=== PATIENT | female | born 1945 | race Caucasian/White ===

== ENCOUNTER → 2017-11-09 11:49 | Outpatient (CLI) | payer OTHER, SELFPAY ==
--- NOTE | 2017-11-09 | DI.MG.S_ITS ---
BILATERAL DIGITAL SCREENING MAMMOGRAM 3D/2D WITH CAD: 11/09/2017 CLINICAL: Routine screening. Comparison is made to exams dated: 10/25/2016 mammogram and 06/25/2013 mammogram - [facility]. The tissue of both breasts is heterogeneously dense. This may lower the sensitivity of mammography. Current study was also evaluated with a Computer Aided Detection (CAD) system. No significant masses, calcifications, or other findings are seen in either breast. There has been no significant interval change. IMPRESSION: NEGATIVE There is no mammographic evidence of malignancy. A 1 year screening mammogram is recommended. This exam was interpreted at Station ID: [id number]. NOTE: For mammograms, a report in lay terms will be sent to the patient. Approximately 15% of breast malignancies will not be visualized mammographically. In the management of a palpable breast mass, a negative mammogram must not discourage biopsy of a clinically suspicious lesion. Electronically Signed By: Gagan jiang/kylee:11/10/2017 03:31:44 letter sent: Normal Exam ACR BI-RADS Category 1: Negative [id number]
== END ==
PROVIDERS: Family Provider Family Medicine; PCP Family Medicine; Visit Provider Family Medicine
DX: Z12.31 Encounter for screening mammogram for malignant neoplasm of breast (principal)
CPT/HCPCS: 77063; 77067

== ENCOUNTER → 2017-11-15 09:46 | Outpatient (CLI) | payer OTHER, SELFPAY ==
--- NOTE | 2017-11-15 | DI.CT.S_ITS ---
PROCEDURE: CT CHEST WO CON INDICATIONS: PULMONARY NODULE TECHNIQUE: Noncontrast 2.0-2.5 mm thick sections acquired from the pulmonary apices to the posterior costophrenic angles. 7 mm thick coronal and sagittal MIP reformats were then acquired. A low radiation dose technique was utilized. COMPARISON: [facility], CR, CHEST 1 VIEW, 03/29/2016, 10:28. [facility], CT, ABDOMEN/PELVIS WITH CONTRAST, 11/27/2016, 13:50. FINDINGS: Image quality: Diagnostic, given the low radiation dose technique. Lungs and pleura: There is a 1 cm in diameter nodule in the posterior right upper lobe (series 2, image 54) with multiple 2-3 mm in diameter adjacent nodules. There is a 3 mm nodule in the right upper lobe (series 2, image 50 post menses. There is a 7 mm nodule in the right upper lobe (series 2, image 72). There is a 4 mm nodule in the left lower lobe (series 2, image 88). There is a 2 mm nodule in the right upper lobe (series 2, image 94). There is a 3 mm nodule in the right lower lobe (series 2, image 102. There is a 3 mm nodule in the left lower lobe (series 2, image 103. There is a 5 mm nodule in the right middle lobe (series 2, image 111) which is stable compared to prior study obtained 11/27/2016 there is a 5 mm nodule in the right lower lobe (series 2, image 118 which is new compared to prior CT obtained 11/27/2016. There is a 7 mm nodule in the right lower lobe adjacent to the diaphragm (series 2, image 121) which is slightly increased in size compared to 11/27/16. There is a 5 mm nodule in the left lower lobe (series 2, image 121) sees which is stable compared to 11/27/16. There is a 4 mm nodule in the left lower lobe (series 2, image 132) which is stable compared to 11/27/16. Mediastinum: Heart size is normal. Atherosclerotic calcifications are noted in the aorta, and the great vessels. No pericardial effusion. No mediastinal adenopathy by size criteria. Thoracic aorta and central pulmonary arteries are normal in size. Esophagus is normal in caliber. Small hiatal hernia noted. Bones and chest wall: Surgical clips noted in the right axilla. No suspicious bony lesions. No vertebral body compression fractures. Spine degenerative disc disease and facet arthropathy. No axillary or supraclavicular adenopathy by size criteria. Abdomen: Visualized upper abdomen solid organs and bowel loops appear normal in the absence of contrast. IMPRESSION: 1. Multiple bilateral lung nodules. Largest nodules in the right upper lobe and measures 1 cm in diameter. Recommend followup CT scan in 3 months or PET/CT scan base and criteria outlined below. 2. Small hiatal hernia. Fleischner Society criteria for SOLID lung nodule followup. Nodule size (mm)Low-risk patientHigh-risk patient<6 (single or multiple)No routine followup.Optional CT at 12 months. 6-8 (single or multiple)CT at 6-12 months, then optional CT at 18-24 mo.CT at 6-12 months, then CT at 18-24 months. >8 (single)CT at 3 months, PET-CT, or biopsy. Same as for low-risk pts. >8 (multiple)CT at 3-6 months, then optional CT at 18-24 mo.CT at 3-6 months, then CT at 18-24 months. Recommendations do not apply to lung cancer screening, patients with immunosuppression, or patients with known primary cancer. Dictated by: Summer Clements MD, PhD on 11/15/2017 at 16:42 Approved by: Summer Clements MD, PhD on 11/15/2017 at 16:54
== END ==
PROVIDERS: Family Provider Family Medicine; PCP Family Medicine; Visit Provider Family Medicine
DX: R91.8 Other nonspecific abnormal finding of lung field (principal); K44.9 Diaphragmatic hernia without obstruction or gangrene
CPT/HCPCS: 71250

== ENCOUNTER → 2018-01-26 10:15 | Outpatient (CLI) | payer OTHER, SELFPAY ==
--- NOTE | 2018-01-26 | DI.CT.S_ITS ---
PROCEDURE: CT CHEST WO CON INDICATIONS: FOLLOW UP ON LUNG NODULE TECHNIQUE: Noncontrast 2.0-2.5 mm thick sections acquired from the pulmonary apices to the posterior costophrenic angles. 7 mm thick coronal and sagittal MIP reformats were then acquired. A low radiation dose technique was utilized. COMPARISON: [facility], CT, CT CHEST WO CON, 11/15/2017, 9:44. FINDINGS: Image quality: Diagnostic, given the low radiation dose technique. Lungs and pleura: Biapical scarring is seen. Previously described 1 cm nodule in posterior right upper lobe is less well-defined on the current study it measures approximately 7 mm in size. Adjacent 2-3 mm nodular densities are again seen and unchanged series 3 image 48. The 3 mm right upper lobe nodule anteriorly is grossly unchanged series 3 image 43. 7 mm nodule in right upper lobe is unchanged series 3 image 65. 4 mm left lower lobe nodule now measures 3 mm in size series 3 image 79. 2 mm right upper lobe nodule is again seen and unchanged series 3 image 81. Subtle 2 mm right upper lobe nodule is also seen and unchanged series 3 image 78. 3 mm right lower lobe nodule with remains unchanged series 3 image 92. 3 mm left lower lobe nodule is also unchanged series 3 image 96. 5 mm right middle lobe nodule remains stable in size and appearance series 3 image 103. 5 mm right lower lobe nodule is also unchanged series 3 image 109. 7 mm right lower lobe nodule adjacent to the diaphragm is also unchanged series 3 image 111. 5 mm left lower lobe nodule is unchanged series 3 image 114. 4 mm nodule in left lower lobe is unchanged. Increased scarring/atelectasis adjacent to this nodule is seen in series 3 image 124. No gross new pulmonary nodule or mass is identified. No pleural effusion or pneumothorax. Central and peripheral airways are patent and are normal in caliber. Mediastinum: Heart size is normal. No pericardial effusion. No mediastinal adenopathy by size criteria. Thoracic aorta and central pulmonary arteries are normal in size. Esophagus is normal in caliber. Small hiatal hernia is again seen. Bones and chest wall: No suspicious bony lesions. No vertebral body compression fractures. No axillary or supraclavicular adenopathy by size criteria. Thyroid gland is within normal limits. Abdomen: Visualized upper abdomen solid organs and bowel loops appear normal in the absence of contrast. IMPRESSION: 1. Essentially stable bilateral subcentimeter pulmonary nodules. The lung centimeter nodule in right upper lobe now measures 7 mm in size and is less well-defined. No new pulmonary nodule or masses seen. There is on the recommendation, additional followup in 12 months is recommended. 2. Small hernia unchanged from prior study. No mediastinal or hilar adenopathy. Fleischner Society criteria for SOLID lung nodule followup. Nodule size (mm)Low-risk patientHigh-risk patient<6 (single or multiple)No routine followup.Optional CT at 12 months. 6-8 (single or multiple)CT at 6-12 months, then optional CT at 18-24 mo.CT at 6-12 months, then CT at 18-24 months. >8 (single)CT at 3 months, PET-CT, or biopsy. Same as for low-risk pts. >8 (multiple)CT at 3-6 months, then optional CT at 18-24 mo.CT at 3-6 months, then CT at 18-24 months. Fleischner Society criteria for SUB-SOLID lung nodule followup. Solitary pure ground-glass nodules<6 mm (ground glass or part solid)No followup needed. 6 mm or larger (ground glass)CT at 6-12 months to confirm persistence, then CT every 2 years until 5 years.6 mm or larger (part solid)CT at 3-6 months to confirm persistence, then annual CT until 5 years if unchanged and solid component remains <6 mm. Multiple sub-solid nodules<6 mmCT at 3-6 months, then CT consider at 2 & 4 years for high risk patients. [address] at 3-6 months. Subsequent management based on most suspicious lesions. Recommendations do not apply to lung cancer screening, patients with immunosuppression, or patients with known primary cancer. Dictated by: Adan Naik M.D. on 01/26/2018 at 13:00 Approved by: Adan Naik M.D. on 01/26/2018 at 13:13
== END ==
PROVIDERS: Family Provider Family Medicine; PCP Family Medicine; Visit Provider Family Medicine
DX: R91.8 Other nonspecific abnormal finding of lung field (principal); K44.9 Diaphragmatic hernia without obstruction or gangrene
CPT/HCPCS: 71250

== ENCOUNTER → 2018-02-01 13:32 | Outpatient (CLI) | payer OTHER, SELFPAY | PROVIDERS: Family Provider Family Medicine; PCP Family Medicine; Visit Provider Family Medicine | DX: M85.88 Other specified disorders of bone density and structure, other site (principal); Z78.0 Asymptomatic menopausal state; Z82.62 Family history of osteoporosis | CPT/HCPCS: 77080 ==

== ENCOUNTER → 2018-11-12 13:31 | Outpatient (CLI) | payer OTHER, SELFPAY ==
--- NOTE | 2018-11-12 | DI.MG.S_ITS ---
BILATERAL DIGITAL SCREENING MAMMOGRAM 3D/2D WITH CAD: 11/12/2018 CLINICAL: Routine screening. Comparison is made to exams dated: 11/09/2017 mammogram, 10/25/2016 mammogram, and 06/25/2013 mammogram - [facility]. The tissue of both breasts is heterogeneously dense. This may lower the sensitivity of mammography. Current study was also evaluated with a Computer Aided Detection (CAD) system. No significant masses, calcifications, or other findings are seen in either breast. There has been no significant interval change. IMPRESSION: NEGATIVE There is no mammographic evidence of malignancy. A 1 year screening mammogram is recommended. This exam was interpreted at Station ID: [id number]. NOTE: For mammograms, a report in lay terms will be sent to the patient. Approximately 15% of breast malignancies will not be visualized mammographically. In the management of a palpable breast mass, a negative mammogram must not discourage biopsy of a clinically suspicious lesion. Electronically Signed By: Jorge ibarra/kylee:11/13/2018 08:15:10 letter sent: Normal Exam ACR BI-RADS Category 1: Negative 3341F
== END ==
PROVIDERS: PCP Student in an Organized Health Care Education/Training Program; Visit Provider Student in an Organized Health Care Education/Training Program
DX: Z12.31 Encounter for screening mammogram for malignant neoplasm of breast (principal)
CPT/HCPCS: 77063; 77067

== ENCOUNTER → 2019-02-04 09:41 | Outpatient (CLI) | payer OTHER, SELFPAY ==
--- NOTE | 2019-02-04 | DI.CT.S_ITS ---
PROCEDURE: CT CHEST WO CON INDICATIONS: Solitary pulmonary nodule TECHNIQUE: Noncontrast 2.0-2.5 mm thick sections acquired from the pulmonary apices to the posterior costophrenic angles. 7 mm thick axial MIP and 5 mm coronal and sagittal reformats were then acquired. A low radiation dose technique was utilized. COMPARISON: [facility], CT, HEAD AND NECK ANGIO, 03/29/2016, 11:14. [facility], CT, CT CHEST WO CON, 11/15/2017, 9:44. [facility], CT, CT CHEST WO CON, 01/26/2018, 10:18. FINDINGS: Image quality: Diagnostic, given the low radiation dose technique. Lungs and pleura: Upper lobe centrilobular emphysema. No acute consolidation. No pneumothorax or pleural effusion. Scattered atelectasis and/or scarring. Redemonstration of multiple bilateral pulmonary nodules, all of which are subcentimeter in size. Postie nodule present within the right lung base on image 240 series 3 is unchanged. Additional merchandiser retail representative 2 mm nodule seen in the left lung base measuring 4 mm image 245 series 3 is unchanged. However, there is questionable slight increase in size of right upper lobe nodule measuring 7 mm, previously 6 mm the prior study however this appearance could be due to slice registration artifact. Posterior right upper lobe ill-defined nodule measuring 6-7 mm grossly unchanged although continued surveillance is recommended in the absence of any more remote prior studies since 11/15/17 Mediastinum: Heart size is normal. No pericardial effusion. No mediastinal adenopathy by size criteria. Thoracic aorta and central pulmonary arteries are normal in size. Esophagus is normal in caliber. Small hiatal hernia. Bones and chest wall: No suspicious bony lesions. No vertebral body compression fractures. No axillary or supraclavicular adenopathy by size criteria. Thyroid gland unremarkable. Abdomen: Visualized upper abdomen solid organs and bowel loops appear normal in the absence of contrast. IMPRESSION: Overall, redemonstration of scattered bilateral subcentimeter pulmonary nodules which are largely unchanged although there is questionable/minimal enlargement of right upper lobe nodule discussed above (however this appearance could be due to slice registration artifact given the small size). Nonetheless recommended continued surveillance with one year interval CT chest followup. Dictated by: Tre Kelley M.D. on 02/04/2019 at 13:12 Approved by: Tre Kelley M.D. on 02/04/2019 at 13:31
== END ==
PROVIDERS: PCP Student in an Organized Health Care Education/Training Program; Visit Provider Student in an Organized Health Care Education/Training Program
DX: R91.8 Other nonspecific abnormal finding of lung field (principal); J43.2 Centrilobular emphysema
CPT/HCPCS: 71250

== ENCOUNTER → 2019-10-17 12:52 | Outpatient (CLI) | payer OTHER, SELFPAY ==
--- NOTE | 2019-10-17 | DI.CT.S_ITS ---
PROCEDURE: CT ABDOMEN PELVIS W CON INDICATIONS: LOWER ABD PAIN TECHNIQUE: After the administration of oral and intravenous contrast, 5 mm thick sections acquired from the diaphragms to the symphysis. 5 mm thick coronal and sagittal reformats were performed. For radiation dose reduction, the following was used: automated exposure control, adjustment of mA and/or kV according to patient size. COMPARISON: [facility], CT, ABDOMEN/PELVIS WITH CONTRAST, 11/27/2016, 13:50. FINDINGS: Image quality: Excellent. ABDOMEN: Lung bases: Lung bases are clear. Heart size is normal. Small hiatal hernia. Hepatic steatosis. Gallbladder surgically absent. . Biliary system is non-dilated. Pancreas enhances normally. Spleen is normal in size and enhancement. No adrenal nodules. Subcentimeter renal foci, statistically cysts, although technically too small to characterize accurately and therefore nonspecific. No hydronephrosis. Punctate right renal calculus image 40/4. No specific transition point to suggest bowel obstruction. There are scattered air-fluid levels which are nonspecific. No free fluid or air. Appendix is not clearly identified however no suspicious pericecal inflammatory changes are seen. Colonic diverticulosis is seen without evidence of acute complication. Nodes and vessels: No retroperitoneal or mesenteric adenopathy. Aorta and inferior vena cava are normal in caliber. Miscellaneous: No ventral hernias. PELVIS: Genitourinary: Bladder wall thickness is normal. Miscellaneous: No inguinal hernias or adenopathy. Bones: No vertebral body compression fracture. Spondylytic changes and facet arthropathy. Chronic left superior ramus callus formation. IMPRESSION: Overall, no acute abnormality identified. Colonic diverticulosis however no or specific evidence of acute diverticulitis. Appendix is not clearly identified however no suspicious pericecal inflammatory changes are seen. Hepatic steatosis Punctate nonobstructive right renal calculus Dictated by: Tre Kelley M.D. on 10/17/2019 at 14:21 Approved by: Tre Kelley M.D. on 10/17/2019 at 14:26
== END ==
PROVIDERS: PCP Student in an Organized Health Care Education/Training Program; Referring Provider Student in an Organized Health Care Education/Training Program; Visit Provider Student in an Organized Health Care Education/Training Program
DX: R10.30 Lower abdominal pain, unspecified (principal); K57.90 Diverticulosis of intestine, part unspecified, without perforation or abscess without bleeding; K76.0 Fatty (change of) liver, not elsewhere classified; N20.0 Calculus of kidney; Z90.49 Acquired absence of other specified parts of digestive tract
CPT/HCPCS: 74177; Q9967

== ENCOUNTER 2019-12-31 17:33 | Emergency (ER) | payer OTHER, SELFPAY ==
[2019-12-31 17:45] VITALS: BP 156/79; PULSE 89; RESP 12; TEMP 36.4; O2SAT 97; BMI 27.3
--- NOTE | 2019-12-31 18:49 | ED_ITS ---
HPI - Ear Problem <CYNDEE Elizondo - Last Filed: 12/31/19 20:29> General Chief complaint: Ear Stated complaint: right ear, earring stick in ear Time Seen by Provider: 12/31/19 18:06 Source: patient Mode of arrival: Ambulatory Limitations: no limitations History of Present Illness HPI Narrative: This is a pleasant 74 year female, nonsmoker, who has non contributory medical history presents to ED with chief complain of backing of earring stuck in left posterior earlobe from wearing hearing on during sleep. During triage this has been removed by triage nurse and the patient reports discomfort has been resolved at this time. Related Data Home Medications Medication Instructions Recorded Confirmed CA PANTOTHENATE/FOLIC ACID/VIT 1 tab PO QDAY #0 04/21/12 10/24/18 (MULTIVITAMIN) CHOLECALCIFEROL (VITAMIN D3) 10,000 units PO #0 cap 12/08/12 10/24/18 (VITAMIN D) Previous Rx's Medication Instructions Recorded meclizine 25 mg PO TIDP PRN #20 tab 03/30/16 metronidazole 500 mg PO TID #21 tab 11/27/16 Allergies Allergy/AdvReac Type Severity Reaction Status Date / Time erythromycin base Allergy Unknown RASH Verified 12/31/19 17:49 [ERYTHROMYCIN BASE] Review of Systems <CYNDEE Elizondo - Last Filed: 12/31/19 20:29> Review of Systems Narrative: General: Denies fever, chills, fatigue, malaise, sweats. HEENT: Denies sinus pain, (+) resolved ear lobe discomfort, ear pain, sore throat, difficulty swallowing, dizziness. Respiratory: Denies dyspnea, cough, wheezing, hemoptysis, sputum. Cardiovascular: Denies chest pain, palpitations, orthopnea, edema. Musculoskeletal: Denies weakness, joint pain or bony pain. Skin: See HPI Patient History <CYNDEE Elizondo - Last Filed: 12/31/19 20:29> Social History Smoking Status: Never smoker Smoking Status: Never smoker Substance Use Type: does not use Exam <CYNDEE Elizondo - Last Filed: 12/31/19 20:29> Narrative Exam Narrative: General appearance: well developed, well nourished, in no acute distress. Head: normocephalic, atraumatic, no scalp lesions, non-tender. ENT: Right earlobe with very mild edema. No obvious erythema, warmth or tenderness to palpate. Hearing grossly intact. Airway patent. Neck/Thyroid: neck supple, full range of motion, no visible masses or meningeal signs. No JVD, non-tender without lymphadenopathy. Skin: no suspicious rashes, lesions over visible areas. Warm and dry and appropriate color for ethnicity. Heart: no clubbing, no cyanosis, no edema. Lungs: Breathing even and unlabored. No stridor. No accessory muscles used. Able to speak in full sentences. Chest: normal shape and expansion. Abdomen: non-obese, non-distended. Neurologic: alert and oriented. 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 Psych: good eye contact, normal affect. Initial Vital Signs Initial Vital Signs: Vital Signs Temperature 97.6 F 12/31/19 17:45 Pulse Rate 89 12/31/19 17:45 Respiratory Rate 12 12/31/19 17:45 Blood Pressure 156/79 H 12/31/19 17:45 Pulse Oximetry 97 12/31/19 17:45 <Ken Conley MD - Last Filed: 01/01/20 04:02> Initial Vital Signs Initial Vital Signs: Vital Signs Temperature 97.6 F 12/31/19 17:45 Pulse Rate 89 12/31/19 17:45 Respiratory Rate 12 12/31/19 17:45 Blood Pressure 156/79 H 12/31/19 17:45 Pulse Oximetry 97 12/31/19 17:45 Scores <CYNDEE Elizondo - Last Filed: 12/31/19 20:29> GCS Thony coma scale eye opening: Spontaneous Thony coma scale verbal response: Orientated Thony coma scale motor response: Obey commands Thony coma scale total score: 15 Course <CYNDEE Elizondo - Last Filed: 12/31/19 20:29> Vital Signs Vital signs: Vital Signs - 8 hr 12/31/19 17:45 Temperature 97.6 F Pulse Rate 89 Respiratory Rate 12 Blood Pressure 156/79 H Pulse Oximetry 97 <Ken Conley MD - Last Filed: 01/01/20 04:02> Vital Signs Vital signs: Vital Signs - 8 hr 12/31/19 17:45 Temperature 97.6 F Pulse Rate 89 Respiratory Rate 12 Blood Pressure 156/79 H Pulse Oximetry 97 Medical Decision Making <CYNDEE Elizondo - Last Filed: 12/31/19 20:29> Differential Diagnosis Differential Diagnosis: Foreign body removal from ear lobe MDM Narrative Medical decision making narrative: Patient reports your lobe pain resolved after earring backing was removed during triage. Patient advised to monitor for signs and symptoms for infection and advised to clean well with alcohol and apply thin layer of antibiotic ointment and affected site. She verbalized understanding in agreement with the treatment plan. Discharge Plan Departure Patient Disposition: Home Clinical Impression: Foreign body in ear lobe Qualifiers: Encounter type: initial encounter Laterality: right Qualified Code(s): S00.451A - Superficial foreign body of right ear, initial encounter Discharge Date/Time: 12/31/19 18:25 Instructions: DI for Removal of Foreign Body From Skin Activity Restrictions/Additional Instructions: You have been diagnosed with [removal of backing of earing from right ear. No signs of infection.]. What to do: *Take your medications as directed. You can clean your ear lobe with alcohol and apply antibiotic ointment few times a day. *Follow up with your primary care provider in 2-3 days, call for an appointment. Let them know you were seen in the ED and that we asked you to be seen in follow up. *Return to ED if you have any new, worsening, or concerning symptoms, such as [signs and symptoms for infection such as increasing redness, warmth, pain, purulent discharge, or fever]. Prescriptions: No Action CA PANTOTHENATE/FOLIC ACID/VIT (MULTIVITAMIN) 1 tab PO QDAY Qty: 0 RF: 0 CHOLECALCIFEROL (VITAMIN D3) (VITAMIN D) 10,000 units PO Qty: 0 RF: 0 meclizine 25 MG tablet,chewable 25 mg PO TIDP PRNQty: 20 RF: 0 metronidazole 500 MG tablet 500 mg PO TID Qty: 21 RF: 0 Referrals: Maryam Motta MD [Primary Care Provider] -
== END 2019-12-31 18:25 | disposition home or self-care (01) ==
PROVIDERS: Emergency Provider Nurse Practitioner Family; PCP Student in an Organized Health Care Education/Training Program
DX: S00.451A Superficial foreign body of right ear, initial encounter (principal)
CPT/HCPCS: 99281

== ENCOUNTER → 2020-03-09 12:59 | Outpatient (CLI) | payer OTHER, SELFPAY ==
--- NOTE | 2020-03-09 | DI.CT.S_ITS ---
PROCEDURE: CT CHEST WO CON INDICATIONS: Lung nodule TECHNIQUE: Noncontrast 2.0-2.5 mm thick sections acquired from the pulmonary apices to the posterior costophrenic angles. 7 mm thick axial MIP and 5 mm coronal and sagittal reformats were then acquired. A low radiation dose technique was utilized. COMPARISON: [facility], CT, CT CHEST WO CON, 11/15/2017, 9:44. [facility], CT, CT CHEST WO CON, 01/26/2018, 10:18. [facility], CT, CT CHEST WO CON, 02/04/2019, 9:41. FINDINGS: Image quality: Diagnostic, given the low radiation dose technique. There is also respiratory motion at the left lung base. Lungs and pleura: There has been interval increase in size of a now 8 x 8 mm solid nodule in the anterior right upper lobe (3/143), previously measuring 6 x 6 mm in 01/26/18. It is immediately adjacent to dominant bronchovascular structures. There are several other nodules in both lungs, other is present at the right lung base centrally measuring up to 7 mm, and one of the larger in the left lower lobe anteriorly measuring approximately 6 mm, though not well defined due to respiratory motion. Other nodules are relatively stable in size. No dense consolidations or pleural effusions. Central and peripheral airways are patent and of normal caliber. Mediastinum: Heart size is normal. No pericardial effusion. No mediastinal adenopathy by size criteria. Thoracic aorta and central pulmonary arteries are normal in size. Mild aortic arch and left subclavian artery origin calcification. Esophagus is normal in caliber. Very small hiatal hernia. Bones and chest wall: No suspicious bony lesions. No vertebral body compression fractures. No axillary or supraclavicular adenopathy by size criteria. Surgical clips in the right axilla. Thyroid gland is unremarkable . Abdomen: Visualized upper abdomen solid organs and bowel loops appear normal in the absence of contrast. Surgically absent gallbladder. IMPRESSION: 1. Interval gradual growth in the right upper lobe lung solid nodule, now measuring 8 mm. At this point, PET-CT is recommended, given that differential diagnosis includes both benign and malignant etiologies, and that it location adjacent to bronchovascular structures is suboptimal for percutaneous sampling. 2. Several other scattered bilateral lung nodules are fairly stable. Dictated by: Gilma Decker M.D. on 03/09/2020 at 14:49 Approved by: Gilma Decker M.D. on 03/09/2020 at 15:06
== END ==
PROVIDERS: PCP Student in an Organized Health Care Education/Training Program; Referring Provider Student in an Organized Health Care Education/Training Program; Visit Provider Student in an Organized Health Care Education/Training Program
DX: R91.8 Other nonspecific abnormal finding of lung field (principal)
CPT/HCPCS: 71250

== ENCOUNTER → 2020-05-01 15:23 | Outpatient (CLI) | payer OTHER, SELFPAY | PROVIDERS: PCP Student in an Organized Health Care Education/Training Program; Referring Provider Student in an Organized Health Care Education/Training Program; Visit Provider Student in an Organized Health Care Education/Training Program | DX: M85.852 Other specified disorders of bone density and structure, left thigh (principal); Z78.0 Asymptomatic menopausal state; Z82.62 Family history of osteoporosis | CPT/HCPCS: 77080 ==

== ENCOUNTER → 2020-07-16 09:47 | Outpatient (ROUT) | payer OTHER, SELFPAY ==
[2020-07-16 10:05] LABS: D Dimer < 200 ng/mL (<230)
== END ==
PROVIDERS: PCP Student in an Organized Health Care Education/Training Program; Visit Provider Student in an Organized Health Care Education/Training Program
DX: M79.661 Pain in right lower leg (principal)
CPT/HCPCS: 85379

== ENCOUNTER → 2020-08-19 08:43 | Outpatient (CLI) | payer OTHER, SELFPAY ==
--- NOTE | 2020-08-19 | DI.CT.S_ITS ---
PROCEDURE: CT CHEST WO CON INDICATIONS: Solitary pulmonary nodule TECHNIQUE: Noncontrast 2.0-2.5 mm thick sections acquired from the pulmonary apices to the posterior costophrenic angles. 7 mm thick axial MIP and 5 mm coronal and sagittal reformats were then acquired. A low radiation dose technique was utilized. COMPARISON: [facility], CT, CT CHEST WO CON, 03/09/2020, 13:06. [facility], CT, CT CHEST WO CON, 02/04/2019, 9:41. FINDINGS: Image quality: Diagnostic, given the low radiation dose technique. Lungs and pleura: There have been scattered small pulmonary nodules bilaterally in this patient, but a anterior right upper lobe nodule has been identified as enlarging in size. The most recent CT 03/09/20 identified growth in this structure to 8 mm. This nodule, currently seen on series 3, image 139, has further slightly enlarged and now measures 9 mm in maximal dimension. Additional pulmonary nodules that are stable over time are seen within the lateral segment right middle lobe, 3/214. Also on the same scan slice laterally on the right at the lower lobe is a smaller nodule measuring 3 mm. An additional 5 mm nodule is present in the right lower lobe at the posterior border of the dome of the diaphragm, 3/236. A left lower lobe anterolateral nodule measures 3 x 6 mm, 3/235. A mid posterior left lower lobe nodule is present on 05/19 a inferior right upper lobe nodule is seen on , measuring 5 mm. Mediastinum: Heart size is normal. No pericardial effusion. No mediastinal adenopathy by size criteria. Thoracic aorta and central pulmonary arteries are normal in size. Esophagus is normal in caliber. No hiatal hernia. Bones and chest wall: No suspicious bony lesions. No vertebral body compression fractures. No axillary or supraclavicular adenopathy by size criteria. Thyroid gland is not well seen by this noncontrast technique. Abdomen: Visualized upper abdomen solid organs and bowel loops appear normal in the absence of contrast. IMPRESSION: The right upper lobe nodule that previously has been described as sequentially enlarging has further enlarged. It was recommended on the prior CT scan report that PET-CT scanning be obtained targeted to this area. This recommendation is again made given the further enlargement if PET-CT scanning has not yet been performed.. Additional scattered pulmonary nodules elsewhere may be granulomatous in origin given appearance and stability over time.. Fleischner Society criteria for SOLID lung nodule followup. Nodule size (mm)Low-risk patientHigh-risk patient<6 (single or multiple)No routine followup.Optional CT at 12 months. 6-8 (single or multiple)CT at 6-12 months, then optional CT at 18-24 mo.CT at 6-12 months, then CT at 18-24 months. >8 (single)CT at 3 months, PET-CT, or biopsy. Same as for low-risk pts. >8 (multiple)CT at 3-6 months, then optional CT at 18-24 mo.CT at 3-6 months, then CT at 18-24 months. Fleischner Society criteria for SUB-SOLID lung nodule followup. Solitary pure ground-glass nodules<6 mm (ground glass or part solid)No followup needed. 6 mm or larger (ground glass)CT at 6-12 months to confirm persistence, then CT every 2 years until 5 years.6 mm or larger (part solid)CT at 3-6 months to confirm persistence, then annual CT until 5 years if unchanged and solid component remains <6 mm. Multiple sub-solid nodules<6 mmCT at 3-6 months, then CT consider at 2 & 4 years for high risk patients. [address] at 3-6 months. Subsequent management based on most suspicious lesions. Recommendations do not apply to lung cancer screening, patients with immunosuppression, or patients with known primary cancer. Dictated by: Aroldo Giron M.D. on 08/19/2020 at 15:10 Approved by: Aroldo Giron M.D. on 08/19/2020 at 15:26
== END ==
PROVIDERS: PCP Student in an Organized Health Care Education/Training Program; Referring Provider Specialist; Visit Provider Specialist
DX: R91.8 Other nonspecific abnormal finding of lung field (principal)
CPT/HCPCS: 71250

== ENCOUNTER 2020-09-07 13:41 | Emergency (ER) | payer OTHER, SELFPAY ==
[2020-09-07 13:50] VITALS: BP 126/62; PULSE 97; RESP 20; TEMP 36.5; O2SAT 97
[2020-09-07 14:17] LABS: Add Manual Diff / Slide Review NO; Basophils Absolute Auto 100 /uL (0-100); Basophils Percent Auto 0.8 % (0-2); Eosinophils Absolute Auto 400 /uL (0-450); Eosinophils Percent Auto 3.3 % (2-4); Hematocrit 42.3 % (36-46); Hemoglobin 14.1 g/dL (12.0-16.0); Lymphocytes Absolute Auto 2500 /uL (1100-4500); Lymphocytes Percent Auto 21.4 % (25-40); Mean Corpuscular HGB Conc 33.2 % (30-36); Mean Corpuscular Hemoglobin 31.8 PG (26-34); Mean Corpuscular Volume 95.7 fL (80-100); Monocytes Absolute Auto 900 /uL (0-900); Monocytes Percent Auto 7.7 % (3-14); Neutrophils Absolute Auto 7900 /uL (1500-7000); Neutrophils Percent Auto 66.8 % (50-75); Platelet Count 269 X10^3/uL (150-400); Red Blood Cell Count 4.42 X10^6/uL (4.0-5.2); Red Cell Distribution Width 13.4 % (11.6-14.8); White Blood Cell Count 11.7 X10^3/uL (4.5-11.0)
[2020-09-07 14:29] LABS: Alanine Aminotransferase 24 IU/L (<35); Albumin 4.5 g/dL (3.5-5.0); Albumin Globulin Ratio 1.4 (1.0-2.8); Alkaline Phosphatase 67 U/L (38-126); Aspartate Aminotransferase 27 IU/L (14-36); BUN Creatinine Ratio 31.7 (6-22); Bilirubin Total 0.5 mg/dL (0.2-1.3); Blood Urea Nitrogen 19 mg/dL (7-17); Calcium 9.5 mg/dL (8.4-10.2); Carbon Dioxide 27 mmol/L (22-32); Chloride 103 mmol/L (98-107); Estimated Glomerular Filt Rate > 60.0 mL/min (>60); Globulin 3.2 g/dL (1.7-4.1); Glucose 106 mg/dL (80-110); HEMOLYSIS < 15 (0-50); Lipase 66 U/L (23-300); Potassium 4.1 mmol/L (3.4-5.1); Sodium 138 mmol/L (137-145); Total Protein 7.7 g/dL (6.3-8.2)
[2020-09-07 15:04] LABS: RBC Urine None Seen (0-5/HPF)
[2020-09-07 15:05] LABS: Amorphous Sediment Urine 2+; Bacteria Urine Moderate (10-30); Culture Indicated Urine Specimen Cultured; Renal Epithelial Cells Urine 0-1/HPF (0-1/HPF); Squamous Epithelial Cell Urine 5-10 /HPF (0-5/HPF); Transitional Epi Cells Urine 1-5/HPF (0-5/HPF); WBC Urine 5-10/HPF (0-5/HPF)
[2020-09-07 15:42] LABS: Creatine Kinase 45 U/L (30-135)
[2020-09-07 15:53] LABS: NT-proBNP (BNP-Adult 18+) 39 pg/mL (<450)
[2020-09-07 15:55] LABS: Troponin I < 0.012 ng/mL (0.01-0.034)
[2020-09-07 16:15] VITALS: PULSE 92; O2SAT 97
--- NOTE | 2020-09-07 16:29 | ED.ABDPAIN ---
HPI - Abdominal Pain General Chief Complaint: Abdominal Pain Stated Complaint: Abd Pain, Lower/Sent by [facility] Time Seen by Provider: 09/07/20 16:29 Source: patient Mode of arrival: Ambulatory History of Present Illness HPI narrative: This is a 75-year-old female comes in with complaint of symptoms starting Monday. Patient has been in PT for chronic leg and muscle discomfort after having a subtalar fusion and ankle fracture that were repaired 20 years and in 2013 respectively. Patient states after her PT session she had pain in both buttocks that resolved by the next day. She states she performed exercises that were quite difficult. After that she started to notice she felt very fatigued and somewhat lethargic. Patient states she noted her heart rate is 122 on Monday. She has not had any fevers or obvious chills. Patient denies any fevers or chills, no cough, cold or congestion. No chest pain or shortness of breath. She denies any nausea or vomiting. She has had some lower abdominal pain for the last several days which is not worsening and has been stable. She also has some bilateral lower flank pain. Patient has had some frequency but no dysuria, hesitancy or urgency. Patient has been sleeping a lot through the weekend. Patient's states she was confused through the weekend, patient states that he thinks that she has mumbles and he often cannot understand her which is not new or atypical. She has not had any diarrhea she has had some decreased stool output but has have in bowel movements. She is on alendronate for osteoporosis as well as vitamins. Prior cholecystectomy. As well as her subtalar fusion 20 years ago and ankle fracture repair in 2013. No tobacco, alcohol or illicit. Her primary physician is Dr. Motta. Related Data Home Medications Medication Instructions Recorded Confirmed CA PANTOTHENATE/FOLIC ACID/VIT 1 tab PO QDAY #0 04/21/12 10/24/18 (MULTIVITAMIN) CHOLECALCIFEROL (VITAMIN D3) 10,000 units PO #0 cap 12/08/12 10/24/18 (VITAMIN D) Previous Rx's Medication Instructions Recorded meclizine 25 mg chewable tablet 25 mg PO TIDP PRN #20 tab 03/30/16 metronidazole 500 mg tablet 500 mg PO TID #21 tab 11/27/16 amoxicillin 875 mg-potassium 1 tab PO Q12H #20 tab 09/07/20 clavulanate 125 mg tablet (Augmentin) Allergies Allergy/AdvReac Type Severity Reaction Status Date / Time erythromycin base Allergy Unknown RASH Verified 12/31/19 17:49 [ERYTHROMYCIN BASE] Review of Systems Review of Systems ROS Unobtainable: All systems reviewed & are unremarkable except as noted in HPI and below Patient History Social History Smoking Status: Never smoker Smoking Status: Never smoker Substance Use Type: does not use Exam Narrative Exam Narrative: GENERAL: Alert and oriented x three, well-nourished female with mild distress HEENT: Head normocephalic, atraumatic, EOMI, pupils reactive, face symmetric, moist mucous membranes NECK: Supple, full range of motion CARDIOVASCULAR: Regular rate and rhythm without murmurs, rubs or gallops. RESPIRATORY: Breath sounds equal bilaterally, no wheezes rales or rhonchi. ABDOMEN: Soft, mild suprapubic tenderness as well as some very mild left lower quadrant tenderness. Normoactive bowel sounds all 4 quadrants. No guarding or rebound, rigidity, no mass : No CVA tenderness EXTREMITIES: Normal range of motion, no clubbing or edema. Neurovascularly intact NEUROLOGICAL: Cranial nerves II through XII grossly intact. Moving all extremities SKIN: Warm, dry, no petechiae, no rashes or lesions. Initial Vital Signs Initial Vital Signs: Vital Signs Temperature 97.7 F 09/07/20 13:50 Pulse Rate 97 H 09/07/20 13:50 Respiratory Rate 20 09/07/20 13:50 Blood Pressure 126/62 09/07/20 13:50 Pulse Oximetry 97 09/07/20 13:50 Course Orders Ordered: ED Orders 09/07/20 13:51 EKG-12 Lead Stat 09/07/20 14:00 BNP [NT-proBNP (BNP-Adult 18+)] Stat Complete Blood Count AUTO DIFF Stat Comprehensive Metabolic Panel Stat Lipase Stat Troponin & CK Cardiac Panel Stat 09/07/20 14:21 Urine Culture Stat Urine Microscopic Stat Vital Signs Vital signs: Vital Signs - 8 hr 09/07/20 13:50 09/07/20 16:15 09/07/20 16:30 Temperature 97.7 F Pulse Rate 97 H 92 H 92 H Respiratory Rate 20 Blood Pressure 126/62 152/68 H Pulse Oximetry 97 97 96 09/07/20 17:00 Temperature Pulse Rate 93 H Respiratory Rate Blood Pressure 152/68 H Pulse Oximetry 97 MDM - Abdominal Pain Lab Data Result diagrams: 09/07/20 14:00 09/07/20 14:00 Labs: Lab Results 09/07/20 09/07/20 09/07/20 Range/Units 14:00 14:00 14:00 WBC 11.7 H (4.5-11.0) X10^3/uL RBC 4.42 (4.0-5.2) X10^6/uL Hgb 14.1 (12.0-16.0) g/dL Hct 42.3 (36-46) % MCV 95.7 (80-100) fL MCH 31.8 (26-34) PG MCHC 33.2 (30-36) % RDW 13.4 (11.6-14.8) % Plt Count 269 (150-400) X10^3/uL Neut % (Auto) 66.8 (50-75) % Lymph % (Auto) 21.4 L (25-40) % [place] % (Auto) 7.7 (3-14) % Eos % (Auto) 3.3 (2-4) % Baso % (Auto) 0.8 (0-2) % Neut # (Auto) 7900 H (9498-7088) /uL Lymph # (Auto) 2500 (6990-2852) /uL [place] # (Auto) 900 (0-900) /uL Eos # (Auto) 400 (0-450) /uL Baso # (Auto) 100 (0-100) /uL Sodium 138 (137-145) mmol/L Potassium 4.1 (3.4-5.1) mmol/L Chloride 103 (98-107) mmol/L Carbon Dioxide 27 (22-32) mmol/L BUN 19 H (7-17) mg/dL Creatinine 0.60 (0.52-1.04) mg/dL Estimated GFR > 60.0 (>60) mL/min BUN/Creatinine Ratio 31.7 H (6-22) Glucose 106 (80-110) mg/dL Calcium 9.5 (8.4-10.2) mg/dL Total Bilirubin 0.5 (0.2-1.3) mg/dL AST 27 (14-36) IU/L ALT 24 (<35) IU/L Alkaline Phosphatase 67 (38-126) U/L Total Creatine Kinase 45 (30-135) U/L CK-MB (CK-2) TNP CK-MB (CK-2) Rel Index TNP Troponin I < 0.012 (0.01-0.034) ng/mL NT-Pro-B Natriuret Pep (<450) pg/mL Total Protein 7.7 (6.3-8.2) g/dL Albumin 4.5 (3.5-5.0) g/dL Globulin 3.2 (1.7-4.1) g/dL Albumin/Globulin Ratio 1.4 (1.0-2.8) Lipase 66 (23-300) U/L Urine RBC (0-5/HPF) Urine WBC (0-5/HPF) Ur Squamous Epith Cells (0-5/HPF) Ur Transition Epith Cell (0-5/HPF) Ur Renal Epithelial Cell (0-1/HPF) Amorphous Sediment Urine Bacteria (None) Ur Culture Indicated? 09/07/20 09/07/20 Range/Units 14:00 14:21 WBC (4.5-11.0) X10^3/uL RBC (4.0-5.2) X10^6/uL Hgb (12.0-16.0) g/dL Hct (36-46) % MCV (80-100) fL MCH (26-34) PG MCHC (30-36) % RDW (11.6-14.8) % Plt Count (150-400) X10^3/uL Neut % (Auto) (50-75) % Lymph % (Auto) (25-40) % [place] % (Auto) (3-14) % Eos % (Auto) (2-4) % Baso % (Auto) (0-2) % Neut # (Auto) (6050-5342) /uL Lymph # (Auto) (1525-8747) /uL [place] # (Auto) (0-900) /uL Eos # (Auto) (0-450) /uL Baso # (Auto) (0-100) /uL Sodium (137-145) mmol/L Potassium (3.4-5.1) mmol/L Chloride (98-107) mmol/L Carbon Dioxide (22-32) mmol/L BUN (7-17) mg/dL Creatinine (0.52-1.04) mg/dL Estimated GFR (>60) mL/min BUN/Creatinine Ratio (6-22) Glucose (80-110) mg/dL Calcium (8.4-10.2) mg/dL Total Bilirubin (0.2-1.3) mg/dL AST (14-36) IU/L ALT (<35) IU/L Alkaline Phosphatase (38-126) U/L Total Creatine Kinase (30-135) U/L CK-MB (CK-2) CK-MB (CK-2) Rel Index Troponin I (0.01-0.034) ng/mL NT-Pro-B Natriuret Pep 39 (<450) pg/mL Total Protein (6.3-8.2) g/dL Albumin (3.5-5.0) g/dL Globulin (1.7-4.1) g/dL Albumin/Globulin Ratio (1.0-2.8) Lipase (23-300) U/L Urine RBC None seen (0-5/HPF) Urine WBC 5-10/hpf H (0-5/HPF) Ur Squamous Epith Cells 5-10 /hpf H (0-5/HPF) Ur Transition Epith Cell 1-5/hpf (0-5/HPF) Ur Renal Epithelial Cell 0-1/hpf (0-1/HPF) Amorphous Sediment 2+ Urine Bacteria Moderate (10-30) H (None) Ur Culture Indicated? Specimen cultured Point of care testing: Urine Dip Bedside Urine Glucose Negative Bedside Urine Bilirubin - Negative Bedside Urine Ketone - Negative Urine Specific [place] 1.020 Bedside Urine Occult Blood - Negative Bedside Urine pH 7 Bedside Urine Protein - Negative Bedside Urine Urobilinogen - Negative Bedside Urine Nitrite - Negative Bedside Urine Leukocytes + 70 Esterase ECG Data Interpretation: Sinus rhythm, right bundle branch block, left anterior fascicular block, rate of 90 6p are 180 QRS of 142 and QTC of 512. Patient had prior from 03/29/2016 which does appear different from today's. [facility] Narrative Medical decision making narrative: This is a 75-year-old female who comes with complaint of lower abdominal pain patient states she has had several days of discomfort. She has had some frequency but no other urinary symptoms. No fevers but has not felt herself. Patient's urine does show suspicious changes for UTI. She has had some mild low back pain and exam has suprapubic as well as some mild left lower quadrant tenderness. Patient's labs are reassuring. It is noted she has new change on her EKG but has no current symptoms and troponin is negative from this perspective. Patient was encouraged to touch base with her physician for follow-up with outpatient stress texting/echo and she feels comfortable with this plan. We discussed CT imaging of her abdomen pelvis to rule out diverticulitis is this is on the differential with her exam. Patient after discussion prefers to hold off on further imaging, start antibiotics and if not improving over the next 24-48 hours return for recheck. All questions answered. Discharge Plan Departure Patient Disposition: Home Clinical Impression: Acute UTI Instructions: DI for Abdominal Pain-Adult Activity Restrictions/Additional Instructions: Follow-up with your physician in the next week for recheck. Call for an appointment. Take antibiotics until completely gone. Start your antibiotics today. 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 I suspect you have a UTI, you are slightly more tender on the left in comparison to the right and midline so there is a possibility of diverticulitis but your urine is very suspicious for infection. Prescription was sent to [facility] in [place]. Please return for fevers greater 100.4 F, worsening symptoms, persistent vomiting, worsening abdominal, back or flank pain, black or bloody stools, difficulty or inability to urinate or other new or concerning symptoms. Prescriptions: New amoxicillin-pot clavulanate [Augmentin] 875-125 mg tablet 1 tab PO Q12H Qty: 20 RF: 0 No Action CA PANTOTHENATE/FOLIC ACID/VIT (MULTIVITAMIN) 1 tab PO QDAY Qty: 0 RF: 0 CHOLECALCIFEROL (VITAMIN D3) (VITAMIN D) 10,000 units PO Qty: 0 RF: 0 meclizine 25 MG tablet,chewable 25 mg PO TIDP PRNQty: 20 RF: 0 metronidazole 500 MG tablet 500 mg PO TID Qty: 21 RF: 0 Referrals: Maryam Motta MD [Primary Care Provider] -
[2020-09-07 16:30] VITALS: BP 152/68; PULSE 92; O2SAT 96
[2020-09-07 17:00] VITALS: BP 152/68; PULSE 93; O2SAT 97
== END 2020-09-07 17:13 | disposition home or self-care (01) ==
PROVIDERS: Emergency Provider Emergency Medicine; PCP Student in an Organized Health Care Education/Training Program
DX: N39.0 Urinary tract infection, site not specified (principal); R10.30 Lower abdominal pain, unspecified
CPT/HCPCS: 36415; 80053; 81003; 81015; 82550; 83690; 83880; 84484; 85025; 87086; 93005; 93010; 99283; 99284

== ENCOUNTER 2020-09-10 08:25 | Emergency (ER) | payer OTHER, SELFPAY ==
--- NOTE | 2020-09-10 08:37 | ED.GENADULT ---
HPI - General Adult General Chief complaint: Abdominal Pain Stated complaint: still having discomfort, diverticulitis Time Seen by Provider: 09/10/20 08:26 History of Present Illness HPI narrative: Patient is a 75-year-old female here for evaluation of bilateral lower abdominal with left being greater than right pain. She was seen here in the emergency department approximately 48 hours ago. Was presumptively diagnosed with a urinary tract infection versus diverticulitis. She had no imaging studies done. She has been on Augmentin for the past 2 days. She states that her symptoms are slightly better. She states she is having small stools with some diarrhea. No urinary symptoms. No fevers. No vomiting. She has had her gallbladder removed. No prior CT scan confirmation of diverticulitis. Related Data Home Medications Medication Instructions Recorded Confirmed CA PANTOTHENATE/FOLIC ACID/VIT 1 tab PO QDAY #0 04/21/12 10/24/18 (MULTIVITAMIN) CHOLECALCIFEROL (VITAMIN D3) 10,000 units PO #0 cap 12/08/12 10/24/18 (VITAMIN D) Previous Rx's Medication Instructions Recorded meclizine 25 mg chewable tablet 25 mg PO TIDP PRN #20 tab 03/30/16 metronidazole 500 mg tablet 500 mg PO TID #21 tab 11/27/16 amoxicillin 875 mg-potassium 1 tab PO Q12H #20 tab 09/07/20 clavulanate 125 mg tablet (Augmentin) Allergies Allergy/AdvReac Type Severity Reaction Status Date / Time erythromycin base Allergy Unknown RASH Verified 09/10/20 08:44 [ERYTHROMYCIN BASE] Review of Systems Constitutional Constitutional: Denies fever(s) Cardiovascular Cardiovascular: Denies chest pain and Denies dyspnea Respiratory Respiratory: Denies dyspnea Gastrointestinal Gastrointestinal: Reports as per HPI Genitourinary Genitourinary: Denies dysuria Musculoskeletal Musculoskeletal: Reports system reviewed and no additional complaints, except as documented Integumentary/Breasts Skin/Breast: Reports system reviewed and no additional complaints, except as documented Neurologic Neurologic: Reports system reviewed and no additional complaints, except as documented Hematologic/Lymphatic On Anticoagulants: No Patient History Medical History (Updated 09/10/20 @ 09:37 by Robby Duffy DO) CVA (cerebral vascular accident) TIA (transient ischemic attack) Weakness generalized Surgical History History of cholecystectomy Social History Smoking Status: Never smoker Smoking Status: Never smoker Substance Use Type: does not use Exam Initial Vital Signs Initial Vital Signs: Vital Signs Temperature 98.9 F 09/10/20 08:45 Pulse Rate 91 H 09/10/20 08:45 Respiratory Rate 16 09/10/20 08:45 Blood Pressure 139/65 09/10/20 08:45 Pulse Oximetry 96 09/10/20 08:45 Const General: cooperative, healthy appearing and comfortable HENUT Head: normal to inspection and normocephalic Resp Effort & Inspection: normal respiratory effort Auscultation: clear to auscultation bilaterally Cardio Rate: regular rate Rhythm: regular rhythm GI Inspection: normal to inspection and non-distended Palpation: tender (Lower abdomen) Skin General: no rashes or lesions noted Neuro General: patient alert, patient awake, patient oriented x3 and moves all extremities Extrem General: normal to inspection and capillary refill normal Psych Appearance: grossly normal and well kempt Course Orders Ordered: ED Orders 09/10/20 08:37 CT abdomen pelvis w con Stat Complete Blood Count AUTO DIFF Stat Comprehensive Metabolic Panel Stat Lipase Stat Sodium Chloride (Normal Saline 0.9%) 1,000 mls @ 1,000 mls/hr IV BOLUS ONE Stop: 09/10/20 09:36 Last Admin: 09/10/20 09:15 Dose: 1,000 mls/hr Documented by: Vital Signs Vital signs: Vital Signs - 8 hr 09/10/20 08:45 09/10/20 09:07 Temperature 98.9 F Pulse Rate 91 H 77 Respiratory Rate 16 Blood Pressure 139/65 Pulse Oximetry 96 97 Medical Decision Making Medical Records Medical records reviewed: Yes I reviewed the patient's medical records. Lab Data Lab results reviewed: Yes I reviewed the patient's lab results. Result diagrams: 09/10/20 08:40 09/10/20 08:40 Labs: Lab Results 09/10/20 09/10/20 Range/Units 08:40 08:40 WBC 7.8 (4.5-11.0) X10^3/uL RBC 4.04 (4.0-5.2) X10^6/uL Hgb 13.1 (12.0-16.0) g/dL Hct 38.0 (36-46) % MCV 94.1 (80-100) fL MCH 32.5 (26-34) PG MCHC 34.5 (30-36) % RDW 13.1 (11.6-14.8) % Plt Count 286 (150-400) X10^3/uL Neut % (Auto) 65.7 (50-75) % Lymph % (Auto) 19.7 L (25-40) % [place] % (Auto) 8.3 (3-14) % Eos % (Auto) 5.9 H (2-4) % Baso % (Auto) 0.4 (0-2) % Neut # (Auto) 5100 (0029-4380) /uL Lymph # (Auto) 1500 (2458-0192) /uL [place] # (Auto) 600 (0-900) /uL Eos # (Auto) 500 H (0-450) /uL Baso # (Auto) 0 (0-100) /uL Sodium 139 (137-145) mmol/L Potassium 3.8 (3.4-5.1) mmol/L Chloride 107 (98-107) mmol/L Carbon Dioxide 25 (22-32) mmol/L BUN 16 (7-17) mg/dL Creatinine 0.54 (0.52-1.04) mg/dL Estimated GFR > 60.0 (>60) mL/min BUN/Creatinine Ratio 29.6 H (6-22) Glucose 119 H (80-110) mg/dL Calcium 8.6 (8.4-10.2) mg/dL Total Bilirubin 0.4 (0.2-1.3) mg/dL AST 33 (14-36) IU/L ALT 41 H (<35) IU/L Alkaline Phosphatase 77 (38-126) U/L Total Protein 7.0 (6.3-8.2) g/dL Albumin 3.9 (3.5-5.0) g/dL Globulin 3.1 (1.7-4.1) g/dL Albumin/Globulin Ratio 1.3 (1.0-2.8) Lipase 58 (23-300) U/L Imaging Data CT scan - abdomen/pelvis: Radiologist's Impression: [address] [id number] Scan ReportSigned Patient: Nathan Cervantes EMR#: [id number]: 5Acct:[id number]/Sex: 75 / FDate of Service: 09/10/20Loc: EDAccession Number: [id number] Procedure: CT abdomen pelvis w con Ordering Provider: Robby Duffy D.O. PROCEDURE: CT ABDOMEN PELVIS W CON INDICATIONS: L side ABD pain being treated for diverticulitis TECHNIQUE: After the administration of intravenous contrast, axial sections acquired from the lung bases to the pubic symphysis. Coronal and sagittal reformats were performed. For radiation dose reduction, the following was used: automated exposure control, adjustment of mA and/or kV according to patient size. COMPARISON: [facility], CT, CT ABDOMEN PELVIS W CON, 10/17/2019, 13:44. FINDINGS: Image quality: Excellent. Lung bases: Unremarkable. Heart: No significant findings. ABDOMEN: Liver: Unremarkable. Gallbladder: Is surgically absent Biliary ducts: Unremarkable. Pancreas: Unremarkable. Spleen: Unremarkable. Adrenal Glands: Unremarkable. Kidneys and Ureters: Unremarkable. Stomach and Bowel: Small hiatal hernia. Stomach and small bowel are within normal limits. Appendix is not seen. No evidence of appendicitis. Colon is nondistended. Diverticulosis of the descending and sigmoid colon. Severe thickening of the mid sigmoid colon within the central/right hemipelvis, with severe surrounding fat stranding. No pericolonic abscess. Peritoneum: No abnormal intraperitoneal fluid. No free air. Ventral Wall: No hernias. Abdominal Nodes: No retroperitoneal or mesenteric adenopathy by size criteria. Vessels: Aorta and inferior vena cava are normal in size. PELVIS: Pelvic Organs: Unremarkable. Bladder: Unremarkable. Pelvic Nodes: No enlarged lymph nodes. Miscellaneous: No hernias are seen. Bones: Unremarkable. Multilevel degenerative disc and facet disease within the lumbosacral spine. IMPRESSION: 1. Severe diverticulitis of the sigmoid colon. No pericolonic abscess. Follow-up colonoscopy is recommended to exclude underlying neoplasm. 2. Small hiatal hernia. Dictated by: Janeth Hamlin M.D. on 09/10/2020 at 9:12 Approved by: Janeth Hamlin M.D. on 09/10/2020 at 9:15 [facility] Narrative Medical decision making narrative: Patient has a relatively benign abdominal exam. Review of her previous record shows she is on Augmentin. She has been on this for approximately 2 days. She does report some improvement of her abdominal discomfort. Review of her prior records shows that her urine culture was mixed karly. CT scan today does show diverticulitis without signs of perforation/abscess. Plan will be is for her to continue with the Augmentin. Given the fact that she has had some improvement and she has only been on it for 48 hours I do not feel the need to change her to Cipro/Flagyl. I did discuss the diagnosis with her. She does have a follow-up with her primary doctor already scheduled for next week. No indication for surgical consultation currently. She was given strict return precautions. She expressed understanding and agreement. Discharge Plan Departure Patient Disposition: Home Clinical Impression: Diverticulitis Instructions: DI for Diverticulitis Activity Restrictions/Additional Instructions: Your CT scan today did confirm diverticulitis. There was no signs of any perforation nor abscess. The antibiotic that you are currently taking his appropriate for this diagnosis and I recommend that you continue to take it as directed. Keep your follow-up appointment that you have scheduled next week with your primary provider. Return to the emergency department for any new or worsening symptoms Prescriptions: No Action CA PANTOTHENATE/FOLIC ACID/VIT (MULTIVITAMIN) 1 tab PO QDAY Qty: 0 RF: 0 CHOLECALCIFEROL (VITAMIN D3) (VITAMIN D) 10,000 units PO Qty: 0 RF: 0 meclizine 25 MG tablet,chewable 25 mg PO TIDP PRNQty: 20 RF: 0 metronidazole 500 MG tablet 500 mg PO TID Qty: 21 RF: 0 amoxicillin-pot clavulanate [Augmentin] 875-125 mg tablet 1 tab PO Q12H Qty: 20 RF: 0 Referrals: Maryam Motta MD [Primary Care Provider] -
[2020-09-10 08:45] VITALS: BP 139/65; PULSE 91; RESP 16; TEMP 37.2; O2SAT 96; BMI 28.2
[2020-09-10 08:56] LABS: Add Manual Diff / Slide Review NO; Basophils Absolute Auto 0 /uL (0-100); Basophils Percent Auto 0.4 % (0-2); Eosinophils Absolute Auto 500 /uL (0-450); Eosinophils Percent Auto 5.9 % (2-4); Hemoglobin 13.1 g/dL (12.0-16.0); Lymphocytes Absolute Auto 1500 /uL (1100-4500); Lymphocytes Percent Auto 19.7 % (25-40); Mean Corpuscular HGB Conc 34.5 % (30-36); Mean Corpuscular Hemoglobin 32.5 PG (26-34); Mean Corpuscular Volume 94.1 fL (80-100); Monocytes Absolute Auto 600 /uL (0-900); Monocytes Percent Auto 8.3 % (3-14); Neutrophils Absolute Auto 5100 /uL (1500-7000); Neutrophils Percent Auto 65.7 % (50-75); Platelet Count 286 X10^3/uL (150-400); Red Blood Cell Count 4.04 X10^6/uL (4.0-5.2); Red Cell Distribution Width 13.1 % (11.6-14.8); White Blood Cell Count 7.8 X10^3/uL (4.5-11.0)
[2020-09-10 09:07] VITALS: PULSE 77; O2SAT 97
[2020-09-10 09:13] LABS: Alanine Aminotransferase 41 IU/L (<35); Albumin 3.9 g/dL (3.5-5.0); Albumin Globulin Ratio 1.3 (1.0-2.8); Alkaline Phosphatase 77 U/L (38-126); Aspartate Aminotransferase 33 IU/L (14-36); BUN Creatinine Ratio 29.6 (6-22); Bilirubin Total 0.4 mg/dL (0.2-1.3); Blood Urea Nitrogen 16 mg/dL (7-17); Calcium 8.6 mg/dL (8.4-10.2); Carbon Dioxide 25 mmol/L (22-32); Chloride 107 mmol/L (98-107); Estimated Glomerular Filt Rate > 60.0 mL/min (>60); Globulin 3.1 g/dL (1.7-4.1); Glucose 119 mg/dL (80-110); HEMOLYSIS < 15 (0-50); Lipase 58 U/L (23-300); Potassium 3.8 mmol/L (3.4-5.1); Sodium 139 mmol/L (137-145)
[2020-09-10] MEDS: SODIUM CHLORIDE 0.9% 1,000 ML 1000 ML IV (09:15)
[2020-09-10 09:30] VITALS: BP 140/63; PULSE 79; O2SAT 97
== END 2020-09-10 10:05 | disposition home or self-care (01) ==
PROVIDERS: Emergency Provider Emergency Medicine; PCP Student in an Organized Health Care Education/Training Program
DX: K57.92 Diverticulitis of intestine, part unspecified, without perforation or abscess without bleeding (principal)
CPT/HCPCS: 36415; 74177; 80053; 83690; 85025; 96360; 99284

== ENCOUNTER → 2020-10-30 09:36 | Outpatient (CLI) | payer OTHER, SELFPAY ==
[2020-10-30 10:48] LABS: Prothrombin Time 11.8 SECONDS (10.1-12.7)
[2020-10-30 10:51] LABS: BUN Creatinine Ratio 39.3 (6-22); Blood Urea Nitrogen 24 mg/dL (7-17); Calcium 9.6 mg/dL (8.4-10.2); Carbon Dioxide 31 mmol/L (22-32); Chloride 105 mmol/L (98-107); Estimated Glomerular Filt Rate > 60.0 mL/min (>60); Glucose 101 mg/dL (80-110); HEMOLYSIS < 15 (0-50); Potassium 3.9 mmol/L (3.4-5.1); Sodium 141 mmol/L (137-145)
--- OUTSIDE RECORDS SUMMARY | 2020-11-24 07:58 | XMS_ITS | Referral Summary ---
:1945 Author Organization [facility] Address [address] [place] [id number] Care Team Providers Name Role Phone Eden Motta MD Primary Care Provider Reason for Referral Diagnostic Lab (Routine) - Authorized Specialty Diagnoses / Procedures Referred By Contact Refer red To Contact Diagnoses Granulomatous lung disease ([facility]) Carcinoid tumor of right lung Cough Luana Dixon MD [facility] Procedures Complete PFT with DLCO [address] [place] [address] [place] [phone] Referral ID Status Reason Start Date Expiration Date Visits V isits Requested Authorized [id number] Authorized 11/20/2020 11/15/2021 1 1 Reason for Visit Reason Comments Follow-up Consultation (Routine) - Authorized Specialty Diagnoses / Procedures Referred By Contact Refer red To Contact Pulmonary Disease / Diagnoses Solitary pulmonary nodule 1 wk ED FU- Solitary pulmonary nodule Maryam Motta Niket, MD Pulmonology Procedures OFFICE VISIT MD Eden [address] [address] Phone: Fax: Referral ID Status Reason Start Date Expiration Date Visits V isits Requested Authorized [id number] Authorized 11/17/2020 11/17/2021 6 6 Encounter Details Date Type Department Care Team Description 11/20/2020 Office Visit [facility] Luana Dixon, Granuloma tous lung disease ([facility]) (Primary Dx); Clinics Pulmonology Carcinoid tumor of right lung; [place] [address] Cough [address] [place] [id number] Allergies No known active allergiesdocumented as of this encounter (statuses as of 11/24/2020) Medications Medication Sig Dispensed Refills Start Date End Date Status alendronate (FOSAMAX) Take 70 mg by 0 04/03/2020 Active 70 mg tablet mouth once a week ascorbic acid, vitamin Take 1,000 mg 0 Active C, (vitamin C) 1,000 by mouth daily mg tablet calcium Take 1,200 mg 0 Active carbonate/vitamin D3 by mouth daily (CALTRATE 600 PLUS D ORAL) MAGNESIUM ORAL Take 400 mg by 0 Active mouth daily omega-3 fatty Take 1,200 mg 0 Ac tive acids/fish oil (FISH by mouth daily OIL OMEGA 3-6-9 ORAL) cholecalciferol, Take 1,000 0 Ac tive vitamin D3, (Vitamin Units by mouth D3) 125 mcg (5,000 3 (three) times unit) tablet tablet a week tyrosine 500 mg Take by mouth 0 Active capsule daily prasterone, DHEA, Take 12.5 mg by 0 Active (DHEA ORAL) mouth daily multivitamin Take 1 tablet 0 Act crystal (multivitamin) tablet by mouth daily tablet saccharomyces Take 250 mg by 0 A ctive boulardii (FLORASTOR) mouth daily 250 mg capsule acetaminophen Take 2 tablets 360 tablet 0 11/12/2020 Active (TYLENOL) 325 mg (650 mg total) tablet by mouth every 4 (four) hours as needed for mild pain ((1-3)) celecoxib (CeleBREX) Take 1 capsule 60 capsule 0 11/12/2020 Active 100 mg capsule (100 mg total) by mouth 2 (two) times a day gabapentin (NEURONTIN) Take 1 capsule 90 capsule 11 11/12/2020 11/12/2021 Active 100 mg capsule (100 mg total) by mouth 3 (three) times a day documented as of this encounter (statuses as of 11/24/2020) Active Problems Problem Noted Date Granulomatous lung disease 11/20/2020 Last Assessment & Plan: Patient has nonnecrotizing granulomas on mediastinal lymph node dissection from her carcinoid resection. This could be from old sarcoidosis versus old granulomatous disease. She currently has no signs or symptoms of active disease of either . I recommend PFT testing which we will follow through. Cough 11/20/2020 Last Assessment & Plan: Patient has a chronic cough for 17 years . She states this started when she was living in [place] due to secondhand smoke. She cannot tolerate being around smoke so this could be from an asthma etiology. There are other typical causes of coug h including postnasal drip and GERD. Interestingly though her surgical pathology of her lymph node showed granulomatous disease so this could be from sarcoidosis or old granulomatous disease from [facility]. It would be reasonable to pursue PFT testing and we will call [facility] to see if they have received the request and/or completed PFTs. Patient in agreement with the plan. It is other martinez not affecting her in terms of shortness of breath though appears to be bothersome. 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 This was typical carcinoid. No adjuvant treatment is needed. Survival is exce llent. She still warrants NCCN guidelin e surveillance every 6 months for 2 years and every year thereafter with imaging. I defer to Dr. Bauer/Gino to continue surveillance. documented as of this encounter (statuses as of 11/24/2020) Immunizations Name Administration Dates Next Due FLU High Dose 65+ (Fluzone) 10/22/2019, 11/12/2018, 11/16/19 18, 12/02/2016, 11/09/2015 Influenza, Quadrivalent 11/05/2020, 11/05/2014 Nesfmt-DRAY-HjG-2 Vaccine 05/21/2020, 04/30/2020 Pneumococcal Conjugate PCV13 06/04/2015 ([id number]) Pneumococcal Polysaccharide PPV23 08/19/2016 ([id number]) Recombinant Zoster (Shingrix) 03/25/2019, 01/11/2019 Tdap (Boostrix,Adacel) 02/23/2010 documented as of this encounter Social History Tobacco Use Types Packs/Day Years Used Date Former Smoker Cigarettes 1 3 Smokeless Tobacco: Never Used Comments: 23 years-passive smoke exposur e Alcohol Use Standard Drinks/Week Comments Never 0 (1 standard drink = 0.6 oz pure alcoho l) Alcohol Habits Answer Date Recorded How often do you have a drink containing alcohol? Never 05/07/2020 How many drinks containing alcohol do you have on a typical Not asked day when you are drinking? How often do you have six or more drinks on one occasion? No t asked Sex Assigned at Date Recorded Not on file Job Start Date Occupation Industry Not on file Not on file Not on file COVID-19 Exposure Response Date Recorded In the last month, have you been in contact with No / Unsure 11/09/2020 6:03 AM PDT someone who was confirmed or suspected to have Coronavirus / COVID-19? documented as of this encounter Last Filed Vital Signs Vital Sign Reading Time Taken Comments Blood Pressure 138/74 11/20/2020 2:56 PM PDT Pulse 91 11/20/2020 2:56 PM PDT Temperature - - Respiratory Rate - - Oxygen Saturation 96% 11/20/2020 2:56 PM PDT Inhaled Oxygen Concentration - - Weight 82 kg (180 lb 12.8 oz) 11/20/2020 2:54 PM PDT Height 168.9 cm (5' 6.5) 11/20/2020 2:54 PM PDT Body Mass Index 28.74 11/20/2020 2:54 PM PDT documented in this encounter Progress Notes Luana Dixon MD - 11/20/2020 3:00 PM PDT Outpatient Pulmonary Clinic Note 11/20/20 Primary Care Physician: Maryam Motta MD Subjective Subjective Dear Dr. Motta, Dr. Christian, and Dr. Bauer, I had the pleasure of seeing your patient Nathan Cervantes who is a pleasant 75 y.o. female with with chronic pain, diverticulosis, GERD, hyperlipidemia, refractive vision error, osteopenia who originally saw Dr. Bauer for a slightly growing right upper lobe 8 mm nodule and chronic cough for 17 years. She recommended repeat CT for the right upper lobe nodule which grew by 2 mm. She referred the patient to Dr. Christian who performed navigational bronchoscopy showing carcinoid though cannot confirm typical versus atypical. She was then taken for right upper lobe robotic lobectomy done on 11/09/2020 with negative lymph node dissection. She was discharged postop day 3. She still has some residual dyspnea and heavy breathing. The surgical pathology was a typical carcinoid. Follow-up is planned for 12/01/2020. For unclear reasons someone in the hospital requested hospital follow-up ointment within a week. She already has an appoint with Dr. Christian. She states she still having some difficulty breathing but using incentive spirometry getting up to 1.7 to 2.2 L. She has some residual dyspnea but is improving. She admits to chronic cough which is unchanged. Interestingly lymph node dissection showed granulomatous disease which was nonnecrotizing. She admits she was living in [place] and after being exposed to somebody who was smoking she had a cough since that time. She does have several other lung nodules less than 5 mm. No other complaints at this time. PFTs have been ordered in April but were never done or if they were done at [facility] the records were never sent. PROBLEM LIST: Past Medical History: Diagnosis Date ??? Chronic pain disorder ??? Diverticulosis ??? GERD (gastroesophageal reflux disease) ??? Hyperlipidemia, type IIb ??? 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 Wears glasses Past Surgical History: Procedure Laterality Date ??? ANKLE FUSION Left ??? CHOLECYSTECTOMY ??? FIBULA FRACTURE SURGERY Left ??? AR BRONCHOSCOPY,BIOPSY N/A 10/14/2020 Procedure: FLEXIBLE OR RIGID BRONCHOSCOPY WITH ENDOBRONCHIAL BIOPSY USING FLUOROSCOPIC GUIDANCE; Surgeon: Porfirio Christian MD PhD; Location: [facility] GI; Service: Thoracic ??? AR BRONCHOSCOPY,COMPUTER ASSIST/IMAGE-GUIDED NAVIGATION N/A 10/14/2020 Procedure: FLEXIBLE AND NAVIGATIONAL BRONCHOSCOPY WITH BIOPSY; Surgeon: Porfirio Christian MD PhD; Location: [facility] GI; Service: Thoracic ??? AR BRONCHOSCOPY,TRANSBRON ASPIR BX N/A 10/14/2020 Procedure: FLEXIBLE OR RIGID BRONCHOSCOPY WITH TRANSBRONCHIAL NEEDLE ASPIRATION BIOPSY OF TRACHEA USING FLUOROSCOPIC GUIDANCE; Surgeon: Porfirio Christian MD PhD; Location: [facility] GI; Service: Thoracic ??? AR THORACOSCOPY SURG LOBECTOMY Right 11/09/2020 Procedure: ROBOT ASSISTED RIGHT THORACIC SURGERY WITH UPPER LOBECTOMY, MEDIASTINAL LYMPHADENECCTOMY; Surgeon: Porfirio Christian MD PhD; Location: [facility] OR; Service: Thoracic ??? TONSILLECTOMY ??? VAGINAL DELIVERY Family History Problem Relation Age of Onset ??? Diabetes Mother ??? Colon cancer Maternal Grandmother ??? Diabetes Maternal Grandfather Social History Socioeconomic History ??? Marital status: Spouse name: Not on file ??? Number of children: Not on file ??? Years of education: Not on file ??? Highest education level: Not on file Tobacco Use ??? Smoking status: Former Smoker Packs/day: 1.00 Years: 3.00 Pack years: 3.00 Types: Cigarettes ??? Smokeless tobacco: Never Used ??? Tobacco comment: 23 years-passive smoke exposure Substance and Sexual Activity ??? Alcohol use: Never ??? Drug use: Never ??? Sexual activity: Defer No Known Allergies Current Medication List Sig acetaminophen (TYLENOL) 325 mg tablet Take 2 tablets (650 mg total) by mouth every 4 (four) hours as needed for mild pain ((1-3)) alendronate (FOSAMAX) 70 mg tablet Take 70 mg by mouth once a week ascorbic acid, vitamin C, (vitamin C) 1,000 mg tablet Take 1,000 mg by mouth daily calcium carbonate/vitamin D3 (CALTRATE 600 PLUS D ORAL) Take 1,200 mg by mouth daily celecoxib (CeleBREX) 100 mg capsule Take 1 capsule (100 mg total) by mouth 2 (two) times a day cholecalciferol, vitamin D3, (Vitamin D3) 125 mcg (5,000 unit) tablet tablet Take 1,000 Units by mouth 3 (three) times a week gabapentin (NEURONTIN) 100 mg capsule Take 1 capsule (100 mg total) by mouth 3 (three) times a day MAGNESIUM ORAL Take 400 mg by mouth daily multivitamin (multivitamin) tablet tablet Take 1 tablet by mouth daily omega-3 fatty acids/fish oil (FISH OIL OMEGA 3-6-9 ORAL) Take 1,200 mg by mouth daily prasterone, DHEA, (DHEA ORAL) Take 12.5 mg by mouth daily saccharomyces boulardii (FLORASTOR) 250 mg capsule Take 250 mg by mouth daily tyrosine 500 mg capsule Take by mouth daily Review of Systems Objective Objective BP 138/74 (BP Location: Left arm, Patient Position: Sitting) Pulse 91 Ht 1.689 m Wt 82 kg SpO2 96% BMI 28.74 kg/m?? Physical Exam: General appearance: Well-appearing elderly female sitting up in chair no distress, pleasant and cooperative HEET: Normocephalic atraumatic Respiratory: Slightly diminished left upper lobe breath sounds otherwise clear to auscultation bilaterally. No wheezes, rhonchi, or rales. Symmetrical chest wall expansion. No dullness to percussion oregophony. Mildly apparent increased work of breathing at rest. Neuro: Alert, awake, oriented, no focal deficits. Psych: appropriate mood and affect Skin: no rashes on face LABS Lab Results Component Value Date WBC 8.9 11/10/2020 HGB 12.0 11/10/2020 HCT 36.5 11/10/2020 MCV 97 11/10/2020 PLT 229 11/10/2020 NA 141 11/10/2020 K 4.3 11/10/2020 CL 107 11/10/2020 CO2 28 11/10/2020 ANIONGAP 6 11/10/2020 BUN 15.0 11/10/2020 CREATININE 0.73 11/10/2020 GLUCOSE 117 (H) 11/10/2020 CALCIUM 8.3 (L) 11/10/2020 EGFR 80 11/10/2020 I reviewed CBC from 11/10/2020 showing no anemia I reviewed surgical pathology from 11/09/2020 showing typical carcinoid of the right upper lobe with lobectomy otherwise clear with a 1.3 cm nodule. All lymph nodes showed nonnecrotizing granulomas. Pulmonary Functions Testing Results: No PFTs to review IMAGING I reviewed CT chest from 08/19/[address] [place] from 10/14/2020 showing 1.3cm RUL nodule; in hindsight some mild adenopathy limited by lack of contrast Assessment and Plan Assessment Assessment/Plan Comments: 1. Granulomatous lung disease (CMS-HCC) (Primary) Assessment & Plan: Patient has nonnecrotizing granulomas on mediastinal lymph node dissection from her carcinoid resection. This could be from old sarcoidosis versus old granulomatous disease. She currently has no signs or symptoms of active disease of either. I recommend PFT testing which we will follow through. Orders: - Complete PFT with DLCO; Future 2. 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 This was typical carcinoid. No adjuvant treatment is needed. Survival is excellent. She still warrants NCCN guideline surveillance every 6 months for 2 years and every year thereafter with imaging. I defer to Dr. Bauer/Gino to continue surveillance. Orders: - Complete PFT with DLCO; Future 3. Cough Assessment & Plan: Patient has a chronic cough for 17 years. She states this started when she was living in [place] due to secondhand smoke. She cannot tolerate being around smoke so this could be from an asthma etiology. There are other typical causes of cough including postnasal drip and GERD. Interestingly though her surgical pathology of her lymph node showed granulomatous disease so this could be from sarcoidosis or old granulomatous disease from [place]. It would be reasonable to pursue PFT testing and we will call [facility] to see if they have received the request and/or completed PFTs. Patientin agreement with the plan. It is otherwise not affecting her in terms of shortness of breath though appears to be bothersome. Orders: - Complete PFT with DLCO; Future Follow-up: with Dr. Bauer in 3 months I spent a total of 30 minutes on date of service participating in evaluation and management of the patient's diagnoses cough, carcinoid, granulomatous disease, personal review and independent interpretation of CT chests, review of results surgical pathology, review of external PCP and learning consultant notes, ordering of tests PFT, discussion of management and test interpretation with PCP and learning consultant, documentation, and counseling patient. Please note that this dictation was completed with computer voice recognition software. Quite often unanticipated grammatical, syntax, homophones, and other interpretive errors are inadvertently transcribed by the computer software. Please disregard these errors. Please excuse any errors that have escaped final proofreading. Electronically signed by Luana Dixon MD 11/20/2020 3:20 PM documented in this encounter Plan of Treatment Upcoming Encounters Date Type Specialty Care Team Description 12/01/2020 Office Visit General Surgery Rosalind Ann, THADDE[address] [place] [address] (Wo rk) Scheduled Orders Name Type Priority Associated Diagnoses Order S chedule Complete PFT with PFT Routine Granulomatous lung dise ase 1 Occurrences starting DLCO (CMS-HCC) 11/20/2020 until Carcinoid tumor of right lung Cough documented as of this encounter Visit Diagnoses Diagnosis Granulomatous lung disease (CMS-HCC) - P rimary Other diseases of lung, not elsewhere cl assified Carcinoid tumor of right lung Cough Assessment & Plan Note - Luana Dixon MD - 11/20/2020 3:19 PM PDT Associated Problem(s): 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 This was typical carcinoid. No adjuvant treatment is needed. Survival is excellent. She still warrants NCCN guideline surveillance every 6 months for 2 years and every year thereafter with imaging. I defer to Dr. Bauer/Gino to continue surveillance. ssessment & Plan Note - Luana Dixon MD - 11/20/2020 3:18 PM PDTAssociated Problem(s): Granulomatous lung disease (CMS-HCC) Patient has nonnecrotizing granulomas on mediastinal lymph node dissection from her carcinoid resection. This could be from old sarcoidosis versus old granulomatous disease. She currently has no signs or symptoms of active disease of either. I recommend PFT testing which we will follow through. ssessment & Plan Note - Luana Dixon MD - 11/20/2020 3:16 PM PDTAssociated Problem(s): Cough Patient has a chronic cough for 17 years. She states this started when she was living in [place] due to secondhand smoke. She cannot tolerate being around smoke so this could be from an asthma etiology. There are other typical causes of cough including postnasal drip and GERD. Interestingly though her surgical pathology of her lymph node showed granulomatous disease so this could be from sarcoidosis or old granulomatous disease from [place]. It would be reasonable to pursue PFT testing and we will call [facility] to see if they have received the request and/or completed PFTs. Patientin agreement with the plan. It is otherwise not affecting her in terms of shortness of breath though appears to be bothersome. documented in this encounter Insurance Payer Benefit Plan / Subscriber ID Effective Phone Address T ype Group Dates [facility] [id number] 2014-Pres [phone] [facility] [place] [phone] [facility] 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
== END ==
PROVIDERS: PCP Student in an Organized Health Care Education/Training Program; Referring Provider Thoracic Surgery (Cardiothoracic Vascular Surgery); Visit Provider Thoracic Surgery (Cardiothoracic Vascular Surgery)
DX: Z01.818 Encounter for other preprocedural examination (principal); R91.1 Solitary pulmonary nodule
CPT/HCPCS: 36415; 80048; 85610; 93005

== ENCOUNTER → 2020-11-26 13:17 | Outpatient (CLI) | payer OTHER, SELFPAY ==
--- NOTE | 2020-11-26 | DI.RAD.S_ITS ---
PROCEDURE: XR CHEST 2V INDICATIONS: CARCINOID TUMOR OF RIGHT LUNG TECHNIQUE: 2 views of the chest were acquired. COMPARISON: [facility], CT, CT VERAN CHEST, 10/14/2020, 8:23. [facility], CR, XR CHEST 2 VIEWS, 11/11/2020, 8:11. [facility], CR, CHEST 1 VIEW, 03/29/2016, 10:28. FINDINGS: Surgical changes and devices: Surgical clips projecting in the right axilla. Lungs and pleura: Small right pleural effusion with adjacent atelectasis. Left lung clear. No pneumothorax. Previously described sub cm nodules seen on the prior CT are not well visualized radiographically. Mediastinum: Prominent right hilar opacities likely vessels. This appears unchanged Bones and chest wall: No suspicious bony abnormalities. Soft tissues appear unremarkable. IMPRESSION: Redemonstrated small right pleural effusion with adjacent atelectasis, minimally increased since 11/11/20. Dictated by: Tre Kelley M.D. on 11/26/2020 at 14:14 Approved by: Tre Kelley M.D. on 11/26/2020 at 14:19
== END ==
PROVIDERS: PCP Student in an Organized Health Care Education/Training Program; Referring Provider Thoracic Surgery (Cardiothoracic Vascular Surgery); Visit Provider Thoracic Surgery (Cardiothoracic Vascular Surgery)
DX: D3A.090 Benign carcinoid tumor of the bronchus and lung (principal); J90 Pleural effusion, not elsewhere classified; J98.11 Atelectasis
CPT/HCPCS: 71046

== ENCOUNTER → 2021-01-28 08:46 | Outpatient (CLI) | payer OTHER, SELFPAY ==
[2021-01-28 10:09] LABS: COVID19 -Nasal RAPID Negative (Negative)
== END ==
PROVIDERS: PCP Student in an Organized Health Care Education/Training Program; Referring Provider Internal Medicine; Visit Provider Internal Medicine
DX: Z20.822 Contact with and (suspected) exposure to COVID-19 (principal)
CPT/HCPCS: 87635; C9803

== ENCOUNTER → 2021-01-29 08:48 | Outpatient (CLI) | payer OTHER, SELFPAY ==
--- NOTE | 2021-02-03 09:40 | PM.PFT.1 ---
Pulmonary Function Test Referral & Results Date Patient Seen: 01/29/21 Requesting provider: Luana Dixon Results: The spirometry demonstrates an FVC of 2.59 L which is 82% of predicted. The FEV1 was measured at 1.76 L which is 74% of predicted. The FEV1/FVC ratio was 68 which is 90% of predicted. Following the administration of bronchodilator there was no appreciable change. Lung volumes show an SVC of 2.73 L which is 90% of predicted. The diffusing capacity was measured at 18.86 which is 66% of predicted. No hemoglobin value was provided, so no correction for potential anemia could be made, if appropriate. The maximum voluntary ventilation was slightly reduced Interpretation: This study demonstrates possibly mild obstructive lung disease based on reduction FEV1 although FEV1/FVC ratio is preserved. Otherwise spirometry is normal There is minimal reduction diffusing capacity suggesting element of disease at the capillary alveolar level as well less patient is anemic as above Clinical correlation suggested
== END ==
PROVIDERS: PCP Student in an Organized Health Care Education/Training Program; Referring Provider Internal Medicine; Visit Provider Internal Medicine
DX: R06.02 Shortness of breath (principal); Z87.891 Personal history of nicotine dependence; J98.8 Other specified respiratory disorders; J84.10 Pulmonary fibrosis, unspecified; D3A.090 Benign carcinoid tumor of the bronchus and lung; R05.9 Cough, unspecified
CPT/HCPCS: 94060; 94726; 94729

== ENCOUNTER → 2021-04-12 08:30 | Outpatient (CLI) | payer OTHER, SELFPAY ==
--- NOTE | 2021-04-12 09:12 | DI.CT.S_ITS ---
PROCEDURE: CT CHEST WO CON INDICATIONS: right lung neuroendocroine tumor TECHNIQUE: Noncontrast 5 mm thick sections acquired from the pulmonary apices to the posterior costophrenic angles. 1 mm lung window, 5 mm thick coronal and sagittal and 7 mm axial MIP reformats were then acquired. For radiation dose reduction, the following was used: automated exposure control, adjustment of mA and/or kV according to patient size. COMPARISON: [facility], CT, CT VERAN CHEST, 10/14/2020, 8:23. [facility], CT, CT CHEST WO CON, 08/19/2020, 8:54. FINDINGS: Image quality: Excellent. Lungs and pleura: No acute air space opacities. Interval right upper lobe suture line and nonvisualization of the previously demonstrated, largest nodule in the right upper lobe, compatible with partial lobectomy. The remaining bilateral pulmonary nodules appear essentially unchanged. Reference nodules: Left lower lobe: 5.6 mm (3-227); previously measuring 5 mm (5-278). Right middle lobe: 4.1 mm (3-135); previously measuring 4 mm (5-263). No pleural effusions or pneumothorax. Mild right pleural thickening. Central and peripheral airways are patent and normal in caliber. Mediastinum: Heart size is normal. No pericardial effusion. Coronary artery calcification. No mediastinal adenopathy by size criteria. Thoracic aorta and central pulmonary arteries are normal in size. Esophagus is normal in caliber. Small hiatal hernia. Bones and chest wall: Multifocal degenerative change. No vertebral body compression fractures. No axillary or supraclavicular adenopathy by size criteria. Surgical clips in the right axilla. Thyroid gland appears homogeneous. Abdomen: Cholecystectomy. Visualized upper abdominal solid organs and bowel loops appear normal in the absence of contrast. IMPRESSION: 1. Essentially stable bilateral subcentimeter pulmonary nodules. Continued monitoring as clinically warranted. Dictated by: Jai Zimmerman M.D. on 04/12/2021 at 10:23 Approved by: Jai Zimmerman M.D. on 04/12/2021 at 11:08
== END ==
PROVIDERS: PCP Student in an Organized Health Care Education/Training Program; Referring Provider Specialist; Visit Provider Internal Medicine Hematology & Oncology
DX: D3A.090 Benign carcinoid tumor of the bronchus and lung (principal); R91.8 Other nonspecific abnormal finding of lung field
CPT/HCPCS: 71250

== ENCOUNTER 2021-05-28 15:14 | Emergency (ER) | payer OTHER, SELFPAY ==
[2021-05-28] VITALS (13 sets, daily range): BP systolic 154–199; BP diastolic 65–104; PULSE 39–46; RESP 0–25; TEMP 36.4; O2SAT 94–98; BMI 29.2
--- NOTE | 2021-05-28 15:30 | ED_ITS ---
HPI - Weakness General Chief complaint: Arrhythmia/Palpitations Stated complaint: LOW BPMS PASSED OUT SOB Time Seen by Provider: 05/28/21 15:25 History of Present Illness HPI Narrative: 75-year-old female nonsmoker without cardiac history presents with her and the chief complaint of a slow heart rate for the past 3 or 4 days and at least 1 syncopal episode earlier in the week. She denies any change in medications and does not take any heart medications. She otherwise feels fatigued but denies any specific complaints. She is not dizzy or lightheaded. She denies any chest pain. She has had no nausea, vomiting or diarrhea. She denies any fever or chills. Related Data Home Medications Medication Instructions Recorded Confirmed CA PANTOTHENATE/FOLIC ACID/VIT 1 tab PO QDAY #0 04/21/12 12/31/20 (MULTIVITAMIN) CHOLECALCIFEROL (VITAMIN D3) 2,000 units PO DAILY #0 cap 12/08/12 12/31/20 (VITAMIN D) alendronate 70 mg tablet (Fosamax) 70 mg PO WEEKLY 12/31/20 12/31/20 magnesium 500 mg tablet 15 mg PO DAILY 12/31/20 12/31/20 Lactobacillus acidophilus 10 10,000 mmu cells PO DAILY 05/17/21 05/17/21 billion cell capsule (Probiotic) ascorbic acid (vitamin C) 1,000 mg cap PO 05/17/21 capsule,extended release calcium carbonate 600 mg-vitamin tab PO 05/17/21 D3 20 mcg (800 unit) chewable tablet (Caltrate 600 plus D) omega 4-wgs-kit-fish oil 1,200 mg cap PO 05/17/21 (144 mg-216 mg) capsule (Fish Oil) tyrosine 500 mg tablet 500 mg PO QAC 05/17/21 05/17/21 Allergies Allergy/AdvReac Type Severity Reaction Status Date / Time erythromycin base Allergy Unknown RASH Verified 09/10/20 08:44 [ERYTHROMYCIN BASE] Review of Systems Review of Systems Narrative: GENERAL: Denies chills, fatigue, malaise, fever, sweats. HEENT: Denies sinus pain, ear pain, sore throat, difficulty swallowing, dizziness. RESPIRATORY: Denies dyspnea, cough, wheezing, hemoptysis, sputum. CARDIOVASCULAR: See HPI GASTROINTESTINAL: Denies nausea, vomiting, abdominal pain, diarrhea, constipation, melena. : Denies dysuria, frequency, incontinence, hematuria, urinary retention. MUSCULOSKELETAL: denies weakness, joint pain, or bony pain SKIN: Denies rash, skin lesions, or other NEUROLOGIC: Denies weakness, headache, numbness, change in speech, confusion, seizures, incoordination. PSYCHIATRIC: No concerning psychosocial issues. 12 point review of systems is negative except for those stated above Patient History Medical History CVA (cerebral vascular accident) Neuroendocrine neoplasm of lung TIA (transient ischemic attack) Weakness generalized Surgical History History of cholecystectomy Family History Grandmother Colon cancer Social History Smoking Status: Never smoker alcohol intake: never substance use type: does not use Smoking Status: Never smoker Substance Use Type: does not use Exam Narrative Exam Narrative: GENERAL: [75] year old patient appears stated age. Well-developed patient, in mild distress. HEAD: Atraumatic. Normocephalic. EYES: Pupils equal round and reactive. Extraocular motions intact. No scleral icterus. No injection or drainage. ENT: Nose without bleeding, purulent drainage. Throat without erythema, tonsillar hypertrophy or exudate. Airway patent. NECK: Trachea midline. Non tender CARDIOVASCULAR: Bradycardic but regular rhythm without murmurs, gallops, or rubs. RESPIRATORY: Clear to auscultation. Breath sounds equal bilaterally. No wheezes, rales, or rhonchi. GASTROINTESTINAL: Abdomen soft, non-tender, nondistended. EXTREMITIES: No edema or joint tenderness. BACK: Nontender without deformity or crepitance. No flank tenderness. NEURO: AOx3. SKIN: No rash or erythema of visible areas Initial Vital Signs Initial Vital Signs: Vital Signs Temperature 97.5 F L 05/28/21 15:15 Pulse Rate 45 L 05/28/21 15:15 Respiratory Rate 18 05/28/21 15:15 Blood Pressure 190/81 H 05/28/21 15:15 Pulse Oximetry 97 05/28/21 15:15 Course Orders Ordered: ED Orders 05/28/21 15:31 XR chest 1V Stat 05/28/21 15:32 EKG-12 Lead Stat 05/28/21 15:35 Complete Blood Count AUTO DIFF Stat Comprehensive Metabolic Panel Stat Magnesium Stat NT-proBNP (BNP-Adult 18+) Stat Troponin & CK Cardiac Panel Stat 05/28/21 15:41 COVID19 -Nasal swab/Pre-Proc Stat Consultations Consultation #1: Call to on-call Cardiology (Dr. Bryant) who agrees with the EKG, quickly recommends patient be transferred to cardiac hospital as she will need a pacemaker. Time: 15:40 Consultation #2: call to [facility]. We get approval for any facility 1605 - [facility] no beds 1610 - [facility] [place] are looking at options 1645 - [place] cardio agrees, requests transfer with admission to hospitalist 1700 - Sharmin Pedroza is accepting hospitalist at [facility]. Ambulance contacted Vital Signs Vital signs: Vital Signs - 8 hr 05/28/21 15:15 05/28/21 15:27 05/28/21 15:28 Temperature 97.5 F L Pulse Rate 45 L 46 L 46 L Respiratory Rate 18 18 22 Blood Pressure 190/81 H 190/81 H Pulse Oximetry 97 97 98 05/28/21 15:30 05/28/21 15:31 05/28/21 16:00 Temperature Pulse Rate 44 L 44 L 43 L Respiratory Rate 15 25 H 0 L Blood Pressure 160/104 H Pulse Oximetry 97 97 97 05/28/21 16:01 05/28/21 16:30 05/28/21 16:31 Temperature Pulse Rate 43 L 39 L 40 L Respiratory Rate 15 15 14 Blood Pressure 199/75 H 158/65 H Pulse Oximetry 97 95 96 05/28/21 17:00 05/28/21 17:01 05/28/21 17:30 Temperature Pulse Rate 39 L 39 L 39 L Respiratory Rate 14 17 13 Blood Pressure 158/68 H Pulse Oximetry 94 96 95 05/28/21 17:31 Temperature Pulse Rate 39 L Respiratory Rate 15 Blood Pressure 154/66 H Pulse Oximetry 94 MDM - Weakness Lab Data Result diagrams: 05/28/21 15:35 05/28/21 15:35 Labs: Lab Results 05/28/21 05/28/21 05/28/21 Range/Units 15:35 15:35 15:41 WBC 6.9 (4.5-11.0) X10^3/uL RBC 4.21 (4.0-5.2) X10^6/uL Hgb 13.6 (12.0-16.0) g/dL Hct 39.4 (36-46) % MCV 93.5 (80-100) fL MCH 32.3 (26-34) PG MCHC 34.5 (30-36) % RDW 13.5 (11.6-14.8) % Plt Count 256 (150-400) X10^3/uL Neut % (Auto) 45.9 L (50-75) % Lymph % (Auto) 40.4 H (25-40) % [place] % (Auto) 7.7 (3-14) % Eos % (Auto) 4.9 H (2-4) % Baso % (Auto) 1.1 (0-2) % Neut # (Auto) 3200 (0762-2945) /uL Lymph # (Auto) 2800 (2134-8747) /uL [place] # (Auto) 500 (0-900) /uL Eos # (Auto) 300 (0-450) /uL Baso # (Auto) 100 (0-100) /uL Sodium 142 (137-145) mmol/L Potassium 4.1 (3.4-5.1) mmol/L Chloride 108 H (98-107) mmol/L Carbon Dioxide 26 (22-32) mmol/L BUN 27 H (7-17) mg/dL Creatinine 0.61 (0.52-1.04) mg/dL Estimated GFR > 60.0 (>60) mL/min BUN/Creatinine Ratio 44.3 H (6-22) Glucose 118 H (80-110) mg/dL Calcium 9.3 (8.4-10.2) mg/dL Magnesium 2.4 H (1.6-2.3) mg/dL Total Bilirubin 0.5 (0.2-1.3) mg/dL AST 29 (14-36) IU/L ALT 18 (<35) IU/L Alkaline Phosphatase 68 (38-126) U/L Total Creatine Kinase 52 (30-135) U/L CK-MB (CK-2) TNP CK-MB (CK-2) Rel Index TNP Troponin I < 0.012 (0.01-0.034) ng/mL NT-Pro-B Natriuret Pep 348 (<450) pg/mL Total Protein 7.5 (6.3-8.2) g/dL Albumin 4.4 (3.5-5.0) g/dL Globulin 3.1 (1.7-4.1) g/dL Albumin/Globulin Ratio 1.4 (1.0-2.8) SARS-CoV-2 (PCR) Negative (Negative) ECG Data Interpretation: Sinus bradycardia with underlying left bundle branch block and 2-1 AV garrett conduction Critical Care Time Critical Care Time Critical Care Time: Yes Total Critical Care Time: 35 Attestation: The high probability of a clinically significant, sudden or life threatening deterioration of the [CV] system(s) required my full and direct attention, intervention and personal management. The aggregate critical care time was [35] minutes. This time is in addition to time spent performing reported procedures but includes the following: [x] Data Review and interpretation [x] Patient assessment and monitoring of vital signs [x] Documentation [x] Medication orders and management Discharge Plan Departure Patient Disposition: [facility] Clinical Impression: AV heart block Prescriptions: No Action CA PANTOTHENATE/FOLIC ACID/VIT (MULTIVITAMIN) 1 tab PO QDAY Qty: 0 0RF CHOLECALCIFEROL (VITAMIN D3) (VITAMIN D) 2,000 units PO DAILY Qty: 0 0RF magnesium 500 mg Tablet 15 mg PO DAILY 0RF alendronate [Fosamax] 70 mg Tablet 70 mg PO WEEKLY 0RF L-Tyrosine 500 mg Tablet 500 mg PO QAC 0RF Rx Instructions: administer on an empty stomach Vitamin C 1,000 mg Capsule, Extended Release PO 0RF omega 5-cmj-vyg-fish oil [Fish Oil] 1,200 (144-216) mg Capsule PO 0RF Probiotic 10 billion cell Capsule 10,000 mmu cells PO DAILY 0RF Caltrate 600 plus D 600 mg-20 mcg (800 unit) Tablet,Chewable PO 0RF Referrals: Maryam Motta MD [Primary Care Provider] -
--- NOTE | 2021-05-28 15:31 | DI.RAD.S_ITS ---
PROCEDURE: XR CHEST 1V INDICATIONS: SOB, weak TECHNIQUE: One view of the chest was acquired. COMPARISON: [facility], [place], [place] FUSION SKULL 2 THIGH, 03/25/2020, 9:26. [facility], CT, CT CHEST WO CON, 08/19/2020, 8:54. [facility], CT, CT CHEST WO CON, 04/12/2021, 8:37. [facility], CR, XR CHEST 2V, 11/26/2020, 13:20. [facility], CR, CHEST 1 VIEW, 03/29/2016, 10:28. FINDINGS: Surgical changes and devices: Right axillary clips. Cholecystectomy clips. Lungs and pleura: Opacity in the right suprahilar region is not significantly changed. Suture material in this region. No significant pleural effusions or pneumothorax. Peaking at the right diaphragm is unchanged. Mediastinum: Mediastinal contours appear unchanged. Heart size is at the upper limits of normal. Bones and chest wall: No suspicious bony lesions. Overlying soft tissues appear unremarkable. IMPRESSION: Similar fullness in the right suprahilar region at the site of prior surgery. If clinically indicated CT chest with IV contrast could be performed for further evaluation. Dictated by: Idnio Jaime M.D. on 05/28/2021 at 15:49 Approved by: [place]io Jaime M.D. on 05/28/2021 at 15:54
[2021-05-28 15:45] LABS: Add Manual Diff / Slide Review NO; Basophils Absolute Auto 100 /uL (0-100); Basophils Percent Auto 1.1 % (0-2); Eosinophils Absolute Auto 300 /uL (0-450); Eosinophils Percent Auto 4.9 % (2-4); Hematocrit 39.4 % (36-46); Hemoglobin 13.6 g/dL (12.0-16.0); Lymphocytes Absolute Auto 2800 /uL (1100-4500); Lymphocytes Percent Auto 40.4 % (25-40); Mean Corpuscular HGB Conc 34.5 % (30-36); Mean Corpuscular Hemoglobin 32.3 PG (26-34); Mean Corpuscular Volume 93.5 fL (80-100); Monocytes Absolute Auto 500 /uL (0-900); Monocytes Percent Auto 7.7 % (3-14); Neutrophils Absolute Auto 3200 /uL (1500-7000); Neutrophils Percent Auto 45.9 % (50-75); Platelet Count 256 X10^3/uL (150-400); Red Blood Cell Count 4.21 X10^6/uL (4.0-5.2); Red Cell Distribution Width 13.5 % (11.6-14.8); White Blood Cell Count 6.9 X10^3/uL (4.5-11.0)
[2021-05-28 15:57] LABS: Alanine Aminotransferase 18 IU/L (<35); Albumin 4.4 g/dL (3.5-5.0); Albumin Globulin Ratio 1.4 (1.0-2.8); Alkaline Phosphatase 68 U/L (38-126); Aspartate Aminotransferase 29 IU/L (14-36); BUN Creatinine Ratio 44.3 (6-22); Bilirubin Total 0.5 mg/dL (0.2-1.3); Blood Urea Nitrogen 27 mg/dL (7-17); Calcium 9.3 mg/dL (8.4-10.2); Carbon Dioxide 26 mmol/L (22-32); Chloride 108 mmol/L (98-107); Creatine Kinase 52 U/L (30-135); Estimated Glomerular Filt Rate > 60.0 mL/min (>60); Globulin 3.1 g/dL (1.7-4.1); Glucose 118 mg/dL (80-110); HEMOLYSIS 65 (0-50); Magnesium 2.4 mg/dL (1.6-2.3); Sodium 142 mmol/L (137-145); Total Protein 7.5 g/dL (6.3-8.2)
[2021-05-28 15:58] LABS: Potassium 4.1 mmol/L (3.4-5.1)
--- NOTE | 2021-05-28 16:01 | PC.NURSE ---
I called [facility] ([facility] at due to this patient being a [facility] patient. I opened the case for this patient to be transferred. I received a call back at 4:01pm from Kylah at the [facility] desk. She stated that physician Alejandro Díaz has reviewed the case and approved her to transfer to any facility for available admission.
[2021-05-28 16:03] LABS: COVID19 -Nasal RAPID Negative (Negative)
[2021-05-28 16:07] LABS: NT-proBNP (BNP-Adult 18+) 348 pg/mL (<450); Troponin I < 0.012 ng/mL (0.01-0.034)
--- NOTE | 2021-05-28 16:08 | PC.NURSE ---
1555 pads on and cardiac/pacer monitor zoll at bs on monitor mode.
== END 2021-05-28 18:05 | disposition short-term general hospital (02) ==
PROVIDERS: Emergency Provider Emergency Medicine; PCP Student in an Organized Health Care Education/Training Program
DX: I44.30 Unspecified atrioventricular block (principal); Z20.822 Contact with and (suspected) exposure to COVID-19
CPT/HCPCS: 36415; 71045; 80053; 82550; 83735; 83880; 84484; 85025; 87635; 93005; 99284; 99285; 99291; C9803

== ENCOUNTER → 2021-11-09 10:08 | Outpatient (CLI) | payer OTHER, SELFPAY ==
--- NOTE | 2021-11-09 10:10 | DI.CT.S_ITS ---
PROCEDURE: CT CHEST WO CON INDICATIONS: carcinoid of the lung TECHNIQUE: Noncontrast 5 mm thick sections acquired from the pulmonary apices to the posterior costophrenic angles. 1 mm lung window, 5 mm thick coronal and sagittal and 7 mm axial MIP reformats were then acquired. For radiation dose reduction, the following was used: automated exposure control, adjustment of mA and/or kV according to patient size. COMPARISON: [facility], CR, XR CHEST 1V, 05/28/2021, 15:32. [facility], CT, CT VERAN CHEST, 10/14/2020, 8:23. CT, CT ABDOMEN PELVIS W CON, 09/10/2020, 8:48. [facility], CT, CT CHEST WO CON, 08/19/2020, 8:54. [facility], CT, CT CHEST WO CON, 04/12/2021, 8:37. FINDINGS: Image quality: Excellent. Lungs and pleura: There are multiple lung nodules bilaterally, unchanged in size. Reference nodules are listed in the following: Nodule 1: 0.3 x 0.7 cm; right lower lobe; series 4, image 199. Nodule 2: 0.5 x 0.8 cm; right lower lobe; series 4, image 221. Nodule 3: 3 mm; right lower lobe; series 4, image 2023. Nodule 4: 4 mm; right middle lobe; series 4, image 168. Nodule 5: 5 mm; right upper lobe the minor fissure; series 4, image 153. Nodule 6: 5 mm; left lower lobe; series 4, image 204. Nodule 7: 5 mm; left lower lobe; series 4, image 240. There are postsurgical changes in right upper lobe. Right upper lobe anterior medial subpleural opacity adjacent to a surgical scar is new. No pleural effusions or pneumothorax. Central and peripheral airways are patent and normal in caliber. Mediastinum: Heart size is normal. No pericardial effusion. There is a cardiac pacemaker. No mediastinal adenopathy by size criteria. Thoracic aorta and central pulmonary arteries are normal in size. Esophagus is normal in caliber. Small hiatal hernia. Mild concentric thickening of the distal esophagus. Bones and chest wall: No suspicious bony lesions. No vertebral body compression fractures. No axillary or supraclavicular adenopathy by size criteria. Thyroid gland is normal. A cardiac pacemaker is seen in the left anterior chest. Multiple surgical clips are seen in the right axilla. Abdomen: Visualized upper abdominal solid organs and bowel loops appear normal in the absence of contrast. IMPRESSION: 1. Multiple subcentimeter pulmonary nodules are present bilaterally, unchanged in size. 2. No findings to suggest garrett or distant metastasis although the makeda regions are suboptimally visualized in absence of intravenous contrast. 3. New air space opacity in the anterior medial aspect of the right upper lobe, most likely pneumonia/pneumonitis or atelectasis. 4. Mild concentric thickening of the distal esophagus. Dictated by: Av Benavides M.D. on 11/09/2021 at 13:40 Approved by: Av Benavides M.D. on 11/09/2021 at 13:59
== END ==
PROVIDERS: PCP Family Medicine; Referring Provider Internal Medicine Hematology & Oncology; Visit Provider Internal Medicine Hematology & Oncology
DX: D3A.8 Other benign neuroendocrine tumors (principal); R91.8 Other nonspecific abnormal finding of lung field
CPT/HCPCS: 71250

== ENCOUNTER → 2022-05-09 08:48 | Outpatient (CLI) | payer OTHER, SELFPAY ==
--- NOTE | 2022-05-09 08:50 | DI.CT.S_ITS ---
mPROCEDURE: CT CHEST WO CON INDICATIONS: Lung neuroendocrine tumor TECHNIQUE: Noncontrast 5 mm thick sections acquired from the pulmonary apices to the posterior costophrenic angles. 1 mm lung window, 5 mm thick coronal and sagittal and 7 mm axial MIP reformats were then acquired. For radiation dose reduction, the following was used: automated exposure control, adjustment of mA and/or kV according to patient size. COMPARISON: [facility], CT, CT CHEST WO CON, 11/09/2021, 10:18. [facility], CT, CT CHEST WO CON, 04/12/2021, 8:37. FINDINGS: Image quality: Excellent. Lungs and pleura: No acute airspace disease. Stable postsurgical changes of the right upper lobe. Redemonstration of previously described surgical scar involving the medial aspect of the right upper lobe. No new pulmonary mass identified. Multiple small bilateral pulmonary nodules are redemonstrated and appear relatively stable. For example, subpleural 5 mm nodule noted in the right lower lobe (image 150/series 3). A 4 mm anterior right middle lobe nodule (image 103/series 3), stable. A 4 mm subpleural right lower lobe nodule (image 169/series 3), stable. A 6 mm posterior left lower lobe nodule (image 194/series 3), stable. A 6 mm anterior left lower lobe nodule (image 239/series 3), stable. No new or enlarging pulmonary nodules identified. No septal thickening or nodularity. No pleural effusions or pneumothorax. Central and peripheral airways are patent and normal in caliber. Mediastinum: Heart size is normal. Coronary atherosclerotic vascular calcifications are noted. No pericardial effusion. No mediastinal adenopathy by size criteria. Thoracic aorta and central pulmonary arteries are normal in size. Atherosclerotic calcifications of the aortic arch are present. Esophagus is normal in caliber. Small hiatal hernia. Bones and chest wall: No suspicious bony lesions. No vertebral body compression fractures. No axillary or supraclavicular adenopathy by size criteria. Thyroid gland is unremarkable. Postsurgical clips noted in the right axilla. Left-sided pacemaker device is present. Abdomen: Status post cholecystectomy. Visualized upper abdominal solid organs and bowel loops appear normal in the absence of contrast. IMPRESSION: 1. CT chest without acute cardiopulmonary abnormalities. Stable size and appearance of multiple subcentimeter bilateral pulmonary nodules. No new or suspicious pulmonary nodules identified. 2. Stable postsurgical changes of the right upper lobe and presumed medial right upper lobe scarring. Otherwise, no evidence for garrett or distant metastases. Other chronic findings as above. Dictated by: Nando Wesley M.D. on 05/09/2022 at 11:48 Approved by: Nando Wesley M.D. on 05/09/2022 at 12:12
== END ==
PROVIDERS: PCP Family Medicine; Referring Provider Internal Medicine Hematology & Oncology; Visit Provider Internal Medicine Hematology & Oncology
DX: D3A.8 Other benign neuroendocrine tumors (principal); I25.10 Atherosclerotic heart disease of native coronary artery without angina pectoris; R91.8 Other nonspecific abnormal finding of lung field; K44.9 Diaphragmatic hernia without obstruction or gangrene; Z95.0 Presence of cardiac pacemaker; I70.0 Atherosclerosis of aorta; Z90.49 Acquired absence of other specified parts of digestive tract
CPT/HCPCS: 71250

== ENCOUNTER 2022-07-17 08:50 | Emergency (ER) | payer OTHER, SELFPAY ==
--- NOTE | 2022-07-17 08:54 | ED_ITS ---
HPI - General Adult General Chief complaint: Back Pain/Injury Stated complaint: per pt pinch nerve, tail bone pain Time Seen by Provider: 07/17/22 08:53 History of Present Illness HPI narrative: 76F nonsmoker with history of vertigo, diverticulitis and neuroendocrine neoplasm of the lung presents with her in the chief complaint of low back pain with radiation down her right leg since a fall a few days ago. She states that she had been gardening and was pulling a weed and when it let go she fell back and landed on her tailbone. She denies any head neck or upper back pain. She denies any prodromal symptoms such as dizziness, weakness or lightheadedness. She states that she has a sharp and stabbing pain that is in her low back and has the occasion to radiate into her right hip and down her leg. She denies any specific hip pain. She denies numbness or tingling. She does not take blood thinners and denies any fever or chills. She denies loss of control of bowel or bladder. She denies any footdrop or lower extremity weakness. Related Data Home Medications Medication Instructions Recorded Confirmed CA PANTOTHENATE/FOLIC ACID/VIT 1 tab PO QDAY ##0 04/21/12 12/31/20 (MULTIVITAMIN) CHOLECALCIFEROL (VITAMIN D3) 2,000 units PO DAILY #0 caps 12/08/12 12/31/20 (VITAMIN D) alendronate 70 mg tablet (Fosamax) 70 mg PO WEEKLY 12/31/20 12/31/20 magnesium 500 mg tablet 15 mg PO DAILY 12/31/20 12/31/20 Lactobacillus acidophilus 10 10,000 mmu cells PO DAILY 05/17/21 05/17/21 billion cell capsule (Probiotic) ascorbic acid (vitamin C) 1,000 mg cap PO 05/17/21 capsule,extended release calcium carbonate 600 mg-vitamin tab PO 05/17/21 D3 20 mcg (800 unit) chewable tablet (Caltrate 600 plus D) omega 5-nkj-wqe-fish oil 1,200 mg cap PO 05/17/21 (144 mg-216 mg) capsule (Fish Oil) tyrosine 500 mg tablet 500 mg PO QAC 05/17/21 05/17/21 cholecalciferol (vitamin D3) 125 125 mcg PO 3XW 11/15/21 11/15/21 mcg (5,000 unit) tablet (Vitamin D3) prasterone (dhea)/calcium tab PO 11/15/21 phosphate dibasic 25 mg-43 mg tablet Previous Rx's Medication Instructions Recorded gabapentin 300 mg capsule 300 mg PO BEDTIME #14 caps 07/17/22 methylprednisolone 4 mg tablets in See Rx Instructions PO .COMPLEX 07/17/22 a dose pack (Medrol (Jone)) #21 ea Allergies Allergy/AdvReac Type Severity Reaction Status Date / Time erythromycin base Allergy Unknown RASH Verified 09/10/20 08:44 [ERYTHROMYCIN BASE] Review of Systems Review of Systems Narrative: GENERAL: Denies chills, fatigue, malaise, fever, sweats. HEENT: Denies sinus pain, ear pain, sore throat, difficulty swallowing, dizziness. RESPIRATORY: Denies dyspnea, cough, wheezing, hemoptysis, sputum. CARDIOVASCULAR: Denies chest pain, palpitations, orthopnea, edema, GASTROINTESTINAL: Denies nausea, vomiting, abdominal pain, diarrhea, constipation, melena. : Denies dysuria, frequency, incontinence, hematuria, urinary retention. MUSCULOSKELETAL: See HPI SKIN: Denies rash, skin lesions, or other NEUROLOGIC: See HPI PSYCHIATRIC: No concerning psychosocial issues. 12 point review of systems is negative except for those stated above Patient History Medical History CVA (cerebral vascular accident) Neuroendocrine neoplasm of lung TIA (transient ischemic attack) Weakness generalized Surgical History History of cholecystectomy Family History Grandmother Colon cancer Social History Smoking Status: Never smoker alcohol intake: never substance use type: does not use Smoking Status: Never smoker Substance Use Type: does not use Exam Narrative Exam Narrative: GENERAL: [76] year old patient appears stated age. Well-developed patient, in mild distress. HEAD: Atraumatic. Normocephalic. EYES: Pupils equal round and reactive. Extraocular motions intact. No scleral icterus. No injection or drainage. ENT: Nose without bleeding, purulent drainage. Throat without erythema, tonsillar hypertrophy or exudate. Airway patent. NECK: Trachea midline. Non tender CARDIOVASCULAR: Regular rate and rhythm without murmurs, gallops, or rubs. RESPIRATORY: Clear to auscultation. Breath sounds equal bilaterally. No wheezes, rales, or rhonchi. GASTROINTESTINAL: Abdomen soft, non-tender, nondistended. EXTREMITIES: No edema or joint tenderness. BACK: rover tender but free of any obvious external abnormalities. Patient exam notes decreased range of motion and muscle spasm, but no CVA tenderness, or vertebral point tenderness. There are no symptoms of cauda equina such as saddle anesthesia, and decreased reflexes, decreased sensation or strength. NEURO: AOx3. SKIN: No rash or erythema of visible areas Initial Vital Signs Initial Vital Signs: Vital Signs Temperature 97.1 F L 07/17/22 08:57 Pulse Rate 83 07/17/22 08:57 Respiratory Rate 16 07/17/22 08:57 Blood Pressure 145/75 H 07/17/22 08:57 Pulse Oximetry 99 07/17/22 08:57 Oxygen Delivery Method Room Air 07/17/22 08:57 Course Orders Ordered: ED Orders 07/17/22 09:01 XR lumbar spine 2-3V Stat XR sacrum coccyx min 2V Stat Discontinued Medications Gabapentin (Gabapentin 300 Mg Capsule) 300 mg PO NOW ONE Stop: 07/17/22 09:44 Last Admin: 07/17/22 09:53 Dose: 300 mg Documented By: SANDY Vital Signs Vital signs: Vital Signs - 8 hr 07/17/22 08:57 07/17/22 10:21 Temperature 97.1 F L Pulse Rate 83 88 Respiratory Rate 16 18 Blood Pressure 145/75 H 144/67 H Pulse Oximetry 99 96 Oxygen Delivery Method Room Air Room Air Medical Decision Making [facility] Narrative Medical decision making narrative: Multiple etiologies of back pain considered including; Epidural abscess, cauda equina, mass occupying lesion, and other considered Prior Charts reviewed in our EMR Primary Historian: patient Imaging reviewed: No evidence of fracture dislocation or other acute bony abnormality Patient has a very reassuring history and physical exam. She has no prodromal symptoms contributing to the fall which is purely mechanical. Is a low risk fall and pain started in the aftermath. Imaging is reassuring. She has no signs of cauda equina. Other diagnoses such as epidural abscess or hematoma considered but thought unlikely given lack of fever, use of anticoagulants or other systemic complaints. She is appropriate for discharge and already has an appointment with her primary care provider on . Findings and discharge diagnosis discussed with patient/family followed by verbalization of understanding Return precautions discussed with patient/family which include increasing pain, weakness, fever, loss of control of bowel or bladder or other bothersome symptoms, whom verbalize understanding of diagnosis and plan Discharge Plan Departure Patient Disposition: Home Clinical Impression: Acute right lumbar radiculopathy Instructions: DI for Lumbar Radiculopathy Activity Restrictions/Additional Instructions: *You have been diagnosed with [acute right lumbar radiculopathy. As we discussed your history and physical exam are reassuring and x-ray showed no fracture. There is no indication of any neurosurgical emergency or spinal cord involvement.] *What to do: *Please continue to take your regular medications as directed. [x ] New medication prescriptions sent to your pharmacy: [[facility] ] [ ] New medication written as a paper prescription [ ] No new medications given *Please follow up with your primary care provider in 2-3 days, call for an appointment. Let them know you were seen in the Emergency Department and that we ask that you be seen in follow up. We will electronically transmit a record of today's note if your PCP is in our system *If you do not have a primary care provider please contact the [facility] Resource line at [phone]. They will ask some questions about your medical history and help get you set up with a doctor in the community. *Return to Emergency Department if you should have any new, worsening or concerning symptoms, such as [fever greater than 101 F, shaking chills, worsening pain, persistent vomiting or other bothersome symptoms] Prescriptions: New gabapentin 300 mg capsule 300 mg PO BEDTIME Qty: 14 0RF methylprednisolone [Medrol (Jone)] 4 mg tablets,dose pack See Rx Instructions .ROUTE .COMPLEX Qty: 21 0RF Rx Instructions: orally per package directions No Action CA PANTOTHENATE/FOLIC ACID/VIT (MULTIVITAMIN) 1 tab PO QDAY Qty: 0 CHOLECALCIFEROL (VITAMIN D3) (VITAMIN D) 2,000 units PO DAILY Qty: 0 magnesium 500 mg Tablet 15 mg PO DAILY alendronate [Fosamax] 70 mg Tablet 70 mg PO WEEKLY L-Tyrosine 500 mg Tablet 500 mg PO QAC Rx Instructions: administer on an empty stomach Vitamin C 1,000 mg Capsule, Extended Release PO omega 0-zdg-sjr-fish oil [Fish Oil] 1,200 (144-216) mg Capsule PO Probiotic 10 billion cell Capsule 10,000 mmu cells PO DAILY Caltrate 600 plus D 600 mg-20 mcg (800 unit) Tablet,Chewable PO DHEA 25-43 mg Tablet PO Patient Comments: PT TAKES 1/2 TAB DAILY cholecalciferol (vitamin D3) [Vitamin D3] 125 mcg (5,000 unit) Tablet 125 mcg PO 3XW Referrals: Krishan Patterson MD [Primary Care Provider] - Stand Alone Forms: Patient Portal/API
[2022-07-17 08:57] VITALS: BP 145/75; PULSE 83; RESP 16; TEMP 36.2; O2SAT 99; BMI 28.2
--- NOTE | 2022-07-17 09:01 | DI.RAD.S_ITS ---
PROCEDURE: XR SACRUM COCCYX MIN 2V INDICATIONS: fall with midline pain TECHNIQUE: 3 views of the sacrum and coccyx acquired. COMPARISON: None. FINDINGS: Bones: No fractures or dislocations. No suspicious bony lesions. Soft tissues: Visualized bowel gas pattern is normal. No suspicious soft tissue densities. IMPRESSION: No acute fracture. No osseous lesion. If symptoms and/or clinical suspicion for pathology persist, further assessment with repeat, or advanced imaging (e.g., CT, MRI, or bone scan) may be helpful for further assessment. Dictated by: Janeth Hamlin M.D. on 07/17/2022 at 8:38 Approved by: Janeth Hamlin M.D. on 07/17/2022 at 8:38
--- NOTE | 2022-07-17 09:01 | DI.RAD.S_ITS ---
PROCEDURE: XR LUMBAR SPINE 2-3V INDICATIONS: fall with midline pain TECHNIQUE: 3 views of the lumbar spine were acquired. COMPARISON: None. FINDINGS: Bones: 5 kvv-eyo-swqkzvg vertebrae are present. Multilevel disc space narrowing and endplate osteophyte formation, as well as facet hypertrophy. There is normal bony alignment. No vertebral body compression fractures. No suspicious bony lesions. Soft tissues: Overlying bowel gas pattern is normal. No suspicious soft tissue calcifications. IMPRESSION: Multilevel degenerative disc and facet disease. No acute fracture. No osseous lesion. If symptoms and/or clinical suspicion for pathology persist, further assessment with repeat, or advanced imaging (e.g., CT, MRI, or bone scan) may be helpful for further assessment. Dictated by: Janeth Hamlin M.D. on 07/17/2022 at 8:38 Approved by: Janeth Hamlin M.D. on 07/17/2022 at 8:39
[2022-07-17] MEDS: GABAPENTIN 300 MG CAPSULE PO (09:53)
[2022-07-17 10:21] VITALS: BP 144/67; PULSE 88; RESP 18; O2SAT 96
== END 2022-07-17 10:23 | disposition home or self-care (01) ==
PROVIDERS: Emergency Provider Emergency Medicine; PCP Family Medicine
DX: M54.16 Radiculopathy, lumbar region (principal); W18.30XA Fall on same level, unspecified, initial encounter
CPT/HCPCS: 72100; 72220; 99283

== ENCOUNTER 2022-07-21 08:29 | Emergency (ER) | payer OTHER, SELFPAY ==
[2022-07-21 08:32] VITALS: PULSE 74; O2SAT 98
[2022-07-21 08:33] VITALS: BP 160/78; PULSE 67; O2SAT 98
--- NOTE | 2022-07-21 08:35 | DI.RAD.S_ITS ---
PROCEDURE: XR CHEST 1V INDICATIONS: weakness TECHNIQUE: One view of the chest was acquired. COMPARISON: [facility], CT, CT CHEST WO CON, 05/09/2022, 9:05. [facility], CR, XR CHEST 1V, 05/28/2021, 15:32. FINDINGS: Surgical changes and devices: There is a cardiac pacemaker in expected position. Lungs and pleura: Lungs are clear. No pleural effusions or pneumothorax. Mediastinum: Mediastinal contours appear normal. Heart size is normal. Bones and chest wall: No suspicious bony lesions. Overlying soft tissues appear unremarkable. IMPRESSION: No acute cardiopulmonary disease. Dictated by: Av Benavides M.D. on 07/21/2022 at 9:08 Approved by: Av Benavides M.D. on 07/21/2022 at 9:11
--- NOTE | 2022-07-21 08:35 | ED.GENADULT ---
HPI - General Adult General Chief complaint: Weakness Stated complaint: Generalized Weakness Time Seen by Provider: 07/21/22 08:34 History of Present Illness HPI narrative: 76F nonsmoker with history of vertigo, diverticulitis and neuroendocrine neoplasm of the lung presents with her in the chief complaint of?gradually worsening generalized weakness over the past few days. She had been seen and evaluated here on Monday with chief complaint consistent with a lumbar radiculopathy and after her emergency department workup was discharged with prescriptions for steroids and gabapentin which she has been taking appropriately. She denies any worsening of her pain, no fever no chills. She is not dizzy or lightheaded but is just generally weak. She denies any falls. She has no runny nose, sore throat or cough. She denies any chest pain, fever or chills. She denies nausea, vomiting or diarrhea and has no dysuria, frequency or urgency. Related Data Home Medications Medication Instructions Recorded Confirmed CA PANTOTHENATE/FOLIC ACID/VIT 1 tab PO QDAY ##0 04/21/12 12/31/20 (MULTIVITAMIN) CHOLECALCIFEROL (VITAMIN D3) 2,000 units PO DAILY #0 caps 12/08/12 12/31/20 (VITAMIN D) alendronate 70 mg tablet (Fosamax) 70 mg PO WEEKLY 12/31/20 12/31/20 magnesium 500 mg tablet 15 mg PO DAILY 12/31/20 12/31/20 Lactobacillus acidophilus 10 10,000 mmu cells PO DAILY 05/17/21 05/17/21 billion cell capsule (Probiotic) ascorbic acid (vitamin C) 1,000 mg cap PO 05/17/21 capsule,extended release calcium carbonate 600 mg-vitamin tab PO 05/17/21 D3 20 mcg (800 unit) chewable tablet (Caltrate 600 plus D) omega 4-lzh-vzy-fish oil 1,200 mg cap PO 05/17/21 (144 mg-216 mg) capsule (Fish Oil) tyrosine 500 mg tablet 500 mg PO QAC 05/17/21 05/17/21 cholecalciferol (vitamin D3) 125 125 mcg PO 3XW 11/15/21 11/15/21 mcg (5,000 unit) tablet (Vitamin D3) prasterone (dhea)/calcium tab PO 11/15/21 phosphate dibasic 25 mg-43 mg tablet Previous Rx's Medication Instructions Recorded gabapentin 300 mg capsule 300 mg PO BEDTIME #14 caps 07/17/22 methylprednisolone 4 mg tablets in See Rx Instructions PO .COMPLEX 07/17/22 a dose pack (Medrol (Jone)) #21 ea Allergies Allergy/AdvReac Type Severity Reaction Status Date / Time erythromycin base Allergy Unknown RASH Verified 07/21/22 08:42 [ERYTHROMYCIN BASE] Review of Systems Review of Systems Narrative: GENERAL: See HPI HEENT: Denies sinus pain, ear pain, sore throat, difficulty swallowing, dizziness. RESPIRATORY: Denies dyspnea, cough, wheezing, hemoptysis, sputum. CARDIOVASCULAR: Denies chest pain, palpitations, orthopnea, edema, GASTROINTESTINAL: Denies nausea, vomiting, abdominal pain, diarrhea, constipation, melena. : Denies dysuria, frequency, incontinence, hematuria, urinary retention. MUSCULOSKELETAL: see HPI SKIN: Denies rash, skin lesions, or other NEUROLOGIC: Denies weakness, headache, numbness, change in speech, confusion, seizures, incoordination. PSYCHIATRIC: No concerning psychosocial issues. 12 point review of systems is negative except for those stated above Patient History Medical History CVA (cerebral vascular accident) Neuroendocrine neoplasm of lung TIA (transient ischemic attack) Weakness generalized Surgical History History of cholecystectomy Family History Grandmother Colon cancer Social History Smoking Status: Never smoker alcohol intake: never substance use type: does not use Smoking Status: Never smoker Substance Use Type: does not use Exam Narrative Exam Narrative: GENERAL: [76] year old patient appears stated age. Well-developed patient, in mild distress. HEAD: Atraumatic. Normocephalic. EYES: Pupils equal round and reactive. Extraocular motions intact. No scleral icterus. No injection or drainage. ENT: Slightly dry mucous membranes Nose without bleeding, purulent drainage. Throat without erythema, tonsillar hypertrophy or exudate. Airway patent. NECK: Trachea midline. Non tender CARDIOVASCULAR: Regular rate and rhythm without murmurs, gallops, or rubs. RESPIRATORY: Clear to auscultation. Breath sounds equal bilaterally. No wheezes, rales, or rhonchi. GASTROINTESTINAL: Abdomen soft, non-tender, nondistended. EXTREMITIES: No edema or joint tenderness. BACK: Nontender without deformity or crepitance. No flank tenderness. NEURO: AOx3. SKIN: No rash or erythema of visible areas Initial Vital Signs Initial Vital Signs: Vital Signs Pulse Rate 74 07/21/22 08:32 Pulse Oximetry 98 07/21/22 08:32 Course Course Course Narrative: Patient feeling better after fluids, ambulatory in the department without difficulty Orders Ordered: Discontinued Medications Sodium Chloride (Normal Saline 0.9%) 1,000 mls @ 1,000 mls/hr IV BOLUS ONE Stop: 07/21/22 09:34 Last Infusion: 07/21/22 10:24 Dose: 0 mls/hr Documented By: Admin: 07/21/22 09:17 Dose: 1,000 mls/hr Documented By: WILLI Vital Signs Vital signs: Vital Signs - 8 hr 07/21/22 08:43 07/21/22 08:32 07/21/22 08:33 Temperature 98.0 F Pulse Rate 98 H 74 Pulse Rate [Orthostatic Lying] Pulse Rate [Orthostatic Sitting] Pulse Rate [Orthostatic Standing] Respiratory Rate 16 Blood Pressure 160/78 H 160/78 H Blood Pressure [Orthostatic Lying] Blood Pressure [Orthostatic Sitting] Blood Pressure [Orthostatic Standing] Pulse Oximetry 98 98 Oxygen Delivery Method Room Air 07/21/22 08:33 07/21/22 09:00 07/21/22 09:00 Temperature Pulse Rate 67 61 Pulse Rate [Orthostatic Lying] Pulse Rate [Orthostatic Sitting] Pulse Rate [Orthostatic Standing] Respiratory Rate 17 Blood Pressure 142/73 H Blood Pressure [Orthostatic Lying] Blood Pressure [Orthostatic Sitting] Blood Pressure [Orthostatic Standing] Pulse Oximetry 98 97 Oxygen Delivery Method Room Air 07/21/22 11:23 07/21/22 11:23 Temperature Pulse Rate 71 Pulse Rate [Orthostatic Lying] 61 Pulse Rate [Orthostatic Sitting] 66 Pulse Rate [Orthostatic Standing] 68 Respiratory Rate Blood Pressure Blood Pressure [Orthostatic Lying] 158/73 H Blood Pressure [Orthostatic Sitting] 150/71 H Blood Pressure [Orthostatic Standing] 144/69 H Pulse Oximetry 97 Oxygen Delivery Method Medical Decision Making Lab Data 07/21/22 08:39 07/21/22 08:39 Labs: Lab Results 07/21/22 07/21/22 07/21/22 Range/Units 08:39 08:39 08:39 WBC 6.9 (4.5-11.0) X10^3/uL RBC 4.26 (4.0-5.2) X10^6/uL Hgb 14.0 (12.0-16.0) g/dL Hct 40.4 (36-46) % MCV 94.9 (80-100) fL MCH 32.9 (26-34) PG MCHC 34.6 (30-36) % RDW 13.1 (11.6-14.8) % Plt Count 256 (150-400) X10^3/uL Neut % (Auto) 59.7 (50-75) % Lymph % (Auto) 33.0 (25-40) % [place] % (Auto) 5.5 (3-14) % Eos % (Auto) 1.0 L (2-4) % Baso % (Auto) 0.8 (0-2) % Neut # (Auto) 4100 (7823-5947) /uL Lymph # (Auto) 2300 (1615-0146) /uL [place] # (Auto) 400 (0-900) /uL Eos # (Auto) 100 (0-450) /uL Baso # (Auto) 100 (0-100) /uL Sodium 138 (137-145) mmol/L Potassium 4.2 (3.4-5.1) mmol/L Chloride 104 (98-107) mmol/L Carbon Dioxide 29 (22-32) mmol/L BUN 20 H (7-17) mg/dL Creatinine 0.61 (0.52-1.04) mg/dL Estimated GFR > 60 (>60) mL/min BUN/Creatinine Ratio 32.8 H (6-22) Glucose 101 (80-110) mg/dL Calcium 8.9 (8.4-10.2) mg/dL Total Bilirubin 0.4 (0.2-1.3) mg/dL AST 22 (14-36) IU/L ALT 20 (<35) IU/L Alkaline Phosphatase 58 (38-126) U/L Total Creatine Kinase 22 L (30-135) U/L CK-MB (CK-2) TNP CK-MB (CK-2) Rel Index TNP Troponin I < 0.012 (0.01-0.034) ng/mL NT-Pro-B Natriuret Pep 146 (<450) pg/mL Total Protein 7.1 (6.3-8.2) g/dL Albumin 4.3 (3.5-5.0) g/dL Globulin 2.8 (1.7-4.1) g/dL Albumin/Globulin Ratio 1.5 (1.0-2.8) Lipase 57 (23-300) U/L Procalcitonin 0.03 (<0.5) ng/mL Urine Dip Bedside Urine Glucose Negative Bedside Urine Bilirubin - Negative Bedside Urine Ketone - Negative Urine Specific [place] 1.010 Bedside Urine Occult Blood - Negative Bedside Urine pH 7.5 Bedside Urine Protein - Negative Bedside Urine Urobilinogen - Negative Bedside Urine Nitrite - Negative Bedside Urine Leukocytes - Negative Esterase Point of care testing: Urine Dip Bedside Urine Glucose Negative Bedside Urine Bilirubin - Negative Bedside Urine Ketone - Negative Urine Specific [place] 1.010 Bedside Urine Occult Blood - Negative Bedside Urine pH 7.5 Bedside Urine Protein - Negative Bedside Urine Urobilinogen - Negative Bedside Urine Nitrite - Negative Bedside Urine Leukocytes - Negative Esterase MDM Narrative Medical decision making narrative: [76] year old patient presents with generalized weakness Multiple etiologies for patient's symptoms considered including, but not limited to: [Infection, dehydration, electrolyte abnormality, medication reaction versus other] Prior Charts reviewed in our EMR Primary Historian: patient Labs reviewed and interpreted by myself: No significant abnormalities, no leukocytosis, signs of anemia, electrolyte abnormality, renal failure, CHF or elevated troponin Imaging reviewed: No acute cardiopulmonary disease Patient's symptoms improved over duration of stay with above-stated therapies. There perhaps was an element of dehydration. No signs of significant infection, electrolyte abnormality or cardiac disease. There is some question about whether not the medications that had been contributing to her symptoms Findings and discharge diagnosis discussed with patient/family followed by verbalization of understanding Return precautions discussed with patient/family whom verbalize understanding of diagnosis and plan Discharge Plan Departure Patient Disposition: Home Clinical Impression: Weakness Activity Restrictions/Additional Instructions: *You have been diagnosed with [generalized weakness. As we discussed your history and physical exam as well as labs and imaging are reassuring and there is no significant abnormality noted. Per our discussion I do wonder if the new medications to help with your back pain might be contributing.] *What to do: * please do not take any more doses of your gabapentin. Otherwise, please continue to take your regular medications as directed. *Please follow up with your primary care provider in 2-3 days, call for an appointment. Let them know you were seen in the Emergency Department and that we ask that you be seen in follow up. We will electronically transmit a record of today's note if your PCP is in our system *If you do not have a primary care provider please contact the [facility] Resource line at [phone]. They will ask some questions about your medical history and help get you set up with a doctor in the community. *Return to Emergency Department if you should have any new, worsening or concerning symptoms, such as [fever greater than 101 F, shaking chills, worsening pain, persistent vomiting or other bothersome symptoms] Prescriptions: No Action CA PANTOTHENATE/FOLIC ACID/VIT (MULTIVITAMIN) 1 tab PO QDAY Qty: 0 CHOLECALCIFEROL (VITAMIN D3) (VITAMIN D) 2,000 units PO DAILY Qty: 0 magnesium 500 mg Tablet 15 mg PO DAILY alendronate [Fosamax] 70 mg Tablet 70 mg PO WEEKLY L-Tyrosine 500 mg Tablet 500 mg PO QAC Rx Instructions: administer on an empty stomach Vitamin C 1,000 mg Capsule, Extended Release PO omega 4-nyc-nbn-fish oil [Fish Oil] 1,200 (144-216) mg Capsule PO Probiotic 10 billion cell Capsule 10,000 mmu cells PO DAILY Caltrate 600 plus D 600 mg-20 mcg (800 unit) Tablet,Chewable PO DHEA 25-43 mg Tablet PO Patient Comments: PT TAKES 1/2 TAB DAILY cholecalciferol (vitamin D3) [Vitamin D3] 125 mcg (5,000 unit) Tablet 125 mcg PO 3XW gabapentin 300 mg capsule 300 mg PO BEDTIME Qty: 14 0RF methylprednisolone [Medrol (Jone)] 4 mg tablets,dose pack See Rx Instructions .ROUTE .COMPLEX Qty: 21 0RF Rx Instructions: orally per package directions Referrals: Krishan Patterson MD [Primary Care Provider] - Stand Alone Forms: Patient Portal/API
[2022-07-21 08:43] VITALS: BP 160/78; PULSE 98; RESP 16; TEMP 36.7; O2SAT 98; BMI 27.8
[2022-07-21 08:48] LABS: Add Manual Diff / Slide Review NO; Basophils Absolute Auto 100 /uL (0-100); Basophils Percent Auto 0.8 % (0-2); Eosinophils Absolute Auto 100 /uL (0-450); Hematocrit 40.4 % (36-46); Lymphocytes Absolute Auto 2300 /uL (1100-4500); Mean Corpuscular HGB Conc 34.6 % (30-36); Mean Corpuscular Hemoglobin 32.9 PG (26-34); Mean Corpuscular Volume 94.9 fL (80-100); Monocytes Absolute Auto 400 /uL (0-900); Monocytes Percent Auto 5.5 % (3-14); Neutrophils Absolute Auto 4100 /uL (1500-7000); Neutrophils Percent Auto 59.7 % (50-75); Platelet Count 256 X10^3/uL (150-400); Red Blood Cell Count 4.26 X10^6/uL (4.0-5.2); Red Cell Distribution Width 13.1 % (11.6-14.8); White Blood Cell Count 6.9 X10^3/uL (4.5-11.0)
[2022-07-21 08:55] LABS: Alanine Aminotransferase 20 IU/L (<35); Albumin 4.3 g/dL (3.5-5.0); Albumin Globulin Ratio 1.5 (1.0-2.8); Alkaline Phosphatase 58 U/L (38-126); Aspartate Aminotransferase 22 IU/L (14-36); BUN Creatinine Ratio 32.8 (6-22); Bilirubin Total 0.4 mg/dL (0.2-1.3); Blood Urea Nitrogen 20 mg/dL (7-17); Calcium 8.9 mg/dL (8.4-10.2); Carbon Dioxide 29 mmol/L (22-32); Chloride 104 mmol/L (98-107); Creatine Kinase 22 U/L (30-135); Estimated Glomerular Filt Rate > 60 mL/min (>60); Globulin 2.8 g/dL (1.7-4.1); Glucose 101 mg/dL (80-110); HEMOLYSIS < 15 (0-50); Lipase 57 U/L (23-300); Potassium 4.2 mmol/L (3.4-5.1); Sodium 138 mmol/L (137-145); Total Protein 7.1 g/dL (6.3-8.2)
[2022-07-21 09:00] VITALS: BP 142/73; PULSE 61; RESP 17; O2SAT 97
[2022-07-21 09:04] LABS: NT-proBNP (BNP-Adult 18+) 146 pg/mL (<450)
[2022-07-21 09:08] LABS: Troponin I < 0.012 ng/mL (0.01-0.034)
[2022-07-21 09:12] LABS: Procalcitonin 0.03 ng/mL (<0.5)
[2022-07-21] MEDS: SODIUM CHLORIDE 0.9% 1,000 ML 1000 ML IV (09:17)
[2022-07-21 11:23] VITALS: BP 144/69; BP 150/71; BP 158/73; PULSE 61; PULSE 66; PULSE 68; PULSE 71; O2SAT 97
[2022-07-21 13:23] VITALS: BP 132/74; PULSE 62; RESP 19; O2SAT 98
== END 2022-07-21 13:16 | disposition home or self-care (01) ==
PROVIDERS: Emergency Provider Emergency Medicine; PCP Family Medicine
DX: R53.1 Weakness (principal); R03.0 Elevated blood-pressure reading, without diagnosis of hypertension
CPT/HCPCS: 36415; 71045; 80053; 81003; 82550; 83690; 83880; 84145; 84484; 85025; 93005; 93010; 99284

== ENCOUNTER 2022-09-20 09:26 | Observation (INO) | payer OTHER, SELFPAY ==
[2022-09-20] VITALS (17 sets, daily range): BP systolic 133–184; BP diastolic 66–106; PULSE 60–89; RESP 14–27; TEMP 36–36.7; O2SAT 94–100; BMI 27.4
--- NOTE | 2022-09-20 09:54 | DI.RAD.S_ITS ---
PROCEDURE: XR CHEST 1V INDICATIONS: chest pain TECHNIQUE: One view of the chest was acquired. COMPARISON: [facility], CR, XR CHEST 1V, 07/21/2022, 8:46. FINDINGS: Surgical changes and devices: Pacemaker. Lungs and pleura: Lungs are clear. No pleural effusions or pneumothorax. Mediastinum: Mediastinal contours appear normal. Heart size is normal. Bones and chest wall: No suspicious bony lesions. Overlying soft tissues appear unremarkable. IMPRESSION: No acute pulmonary process. Dictated by: Breanna Spain M.D. on 09/20/2022 at 10:30 Approved by: Breanna Spain M.D. on 09/20/2022 at 10:34
[2022-09-20 10:07] LABS: Add Manual Diff / Slide Review NO; Basophils Absolute Auto 0 /uL (0-100); Basophils Percent Auto 0.9 % (0-2); Eosinophils Absolute Auto 200 /uL (0-450); Eosinophils Percent Auto 3.4 % (2-4); Hematocrit 41.2 % (36-46); Hemoglobin 14.1 g/dL (12.0-16.0); Lymphocytes Absolute Auto 2300 /uL (1100-4500); Lymphocytes Percent Auto 40.7 % (25-40); Mean Corpuscular HGB Conc 34.2 % (30-36); Mean Corpuscular Hemoglobin 32.2 PG (26-34); Mean Corpuscular Volume 94.2 fL (80-100); Monocytes Absolute Auto 500 /uL (0-900); Monocytes Percent Auto 8.3 % (3-14); Neutrophils Absolute Auto 2700 /uL (1500-7000); Neutrophils Percent Auto 46.7 % (50-75); Platelet Count 234 X10^3/uL (150-400); Red Blood Cell Count 4.37 X10^6/uL (4.0-5.2); Red Cell Distribution Width 13.6 % (11.6-14.8); White Blood Cell Count 5.7 X10^3/uL (4.5-11.0)
--- NOTE | 2022-09-20 10:14 | ED_ITS ---
HPI - Dizziness General Chief Complaint: Dizziness Stated Complaint: Weakness,dizzy when changing position Time Seen by Provider: 09/20/22 09:29 History of Present Illness HPI Narrative: Patient brought in by ambulance for complaints of dizziness with positional changes. at bedside. Blood sugar 109. Patient went to bed around 9:00 p.m. without any complaints. Awoke at 5:30 a.m. in the morning to go to the bathroom without any dizziness, however when back to bed and awoke at 6:00 a.m. and try to get out of bed and was too dizzy. No slurred speech facial droop limb numbness tingling or weakness. No headache. No chest pain or palpitations. Patient states had similar episode in the last year and was seen by provider and thought it was reaction to gabapentin. She is no longer taking it. Patient does have on her medical history history of TIA. Fast exam is negative. Related Data Home Medications Medication Instructions Recorded Confirmed CA PANTOTHENATE/FOLIC ACID/VIT 1 tab PO QDAY ##0 04/21/12 09/20/22 (MULTIVITAMIN) CHOLECALCIFEROL (VITAMIN D3) 2,000 units PO DAILY #0 caps 12/08/12 09/20/22 (VITAMIN D) alendronate 70 mg tablet (Fosamax) 70 mg PO WEEKLY 12/31/20 09/20/22 magnesium 500 mg tablet 15 mg PO DAILY 12/31/20 09/20/22 Lactobacillus acidophilus 10 10,000 mmu cells PO DAILY 05/17/21 09/20/22 billion cell capsule (Probiotic) ascorbic acid (vitamin C) 1,000 mg 1,000 cap PO QAM 05/17/21 09/20/22 capsule,extended release calcium carbonate 600 mg-vitamin 1 tab PO QAM 05/17/21 09/20/22 D3 20 mcg (800 unit) chewable tablet (Caltrate 600 plus D) omega 3-twe-cqp-fish oil 1,200 mg 1 cap PO BID 05/17/21 09/20/22 (144 mg-216 mg) capsule (Fish Oil) tyrosine 500 mg tablet 500 mg PO QAC 05/17/21 09/20/22 cholecalciferol (vitamin D3) 125 125 mcg PO 3XW 11/15/21 09/20/22 mcg (5,000 unit) tablet (Vitamin D3) prasterone (dhea)/calcium 1 tab PO QAM 11/15/21 09/20/22 phosphate dibasic 25 mg-43 mg tablet Allergies Allergy/AdvReac Type Severity Reaction Status Date / Time erythromycin base Allergy Unknown RASH Verified 07/21/22 08:42 [ERYTHROMYCIN BASE] Review of Systems Review of Systems Narrative: GENERAL: negative chills, fatigue, malaise, fever, sweats. HEENT: negative sinus pain, ear pain, sore throat RESPIRATORY: negative dyspnea, cough CARDIOVASCULAR: negative chest pain, palpitations GASTROINTESTINAL: negative nausea, vomiting, abdominal pain : negative dysuria, frequency, hematuria MUSCULOSKELETAL: negative muscle or bony pain SKIN: negative rash, skin lesions NEUROLOGIC: negative weakness, numbness, positive dizziness ROS Unobtainable: All systems reviewed & are unremarkable except as noted in HPI and below Patient History Medical History CVA (cerebral vascular accident) Neuroendocrine neoplasm of lung TIA (transient ischemic attack) Weakness generalized Surgical History History of cholecystectomy Family History Grandmother Colon cancer Social History household members: spouse, family and children Smoking Status: Never smoker alcohol intake: never substance use type: does not use Smoking Status: Never smoker Substance Use Type: does not use Exam Narrative Exam Narrative: GENERAL: in no distress, not toxic not dyspneic HEAD: Normocephalic. EYES: Pupils equal round ENT: Mucous membranes moist. NECK: Trachea midline. No carotid bruit CARDIOVASCULAR: Regular rate and rhythm without murmurs RESPIRATORY: Clear to auscultation. Breath sounds equal bilaterally. No wheezes, rales, or rhonchi. GASTROINTESTINAL: Abdomen soft, non-tender EXTREMITIES: No gross deformities. BACK: No flank tenderness. NEURO: AOx4. Fast exam is negative. Patient has clear speech no facial droop light touch intact to bilateral face hands and legs with strong equal frame [employer] trailers negative pronator drift. Gmaoji-nb-mibl intact bilaterally SKIN: Warm and dry PSYCH: Not anxious, is cooperative Initial Vital Signs Initial Vital Signs: Vital Signs Pulse Rate 89 09/20/22 09:31 Pulse Oximetry 97 09/20/22 09:31 Scores NIH Stroke Scale Level of Conciousness: Alert, keenly responsive Ask month/age: Answers both questions correctly. Open/close eyes, close hand: Performs both tasks correctly Best gaze horizontal: Normal Visual macias: No visual loss Facial palsy: Normal symetrical movement Left arm drift: No drift for full 10 sec Right arm drift: No drift for full 10 sec Left leg drift: No drift for full 5 sec Right leg drift: No drift for full 5 sec Limb ataxia: Absent Sensory on face/arms/legs: Normal, no sensory loss Best language: No aphasia, normal Dysarthria: Normal Extinction or inattention: No abnormality Total NIH Stroke scale score: 0 Course Orders Ordered: Acetaminophen (Acetaminophen 325 Mg Tablet) 650 mg PO Q6H PRN PRN Reason: Fever/Mild Pain (1-3) Al Hydrox/Mg Hydrox/Simethicone (Mag Hydrox/Alum/Simeth 30 Ml Udc) 30 ml PO Q6HR PRN PRN Reason: Dyspepsia Diazepam (Diazepam 5 Mg Tablet) 5 mg PO Q6HR [facility] Last Admin: 09/21/22 06:28 Dose: 5 mg Documented By: Admin: 09/21/22 00:58 Dose: Not Given Documented By: AGUS Enoxaparin Sodium (Enoxaparin 40 Mg/0.4 Ml Syringe) 40 mg SUBCUT DAILY [facility] Sodium Chloride (Normal Saline 0.9%) 1,000 mls @ 125 mls/hr IV CONT [facility] Last Admin: 09/21/22 06:25 Dose: 125 mls/hr Documented By: Infusion: 09/21/22 06:25 Dose: 125 mls/hr Documented By: Admin: 09/20/22 22:44 Dose: 125 mls/hr Documented By: Infusion: 09/20/22 22:44 Dose: 125 mls/hr Documented By: Admin: 09/20/22 20:11 Dose: 125 mls/hr Documented By: AGUS Ibuprofen (Ibuprofen 600 Mg Tablet) 600 mg PO Q6H [facility] Last Admin: 09/21/22 02:23 Dose: Not Given Documented By: Admin: 09/20/22 20:09 Dose: 600 mg Documented By: AGUS Lactobacillus Acidophilus (Lactobacillus Acidophilus Tablet) 2 each PO BID [facility] Last Admin: 09/20/22 20:10 Dose: 2 each Documented By: AGUS Magnesium Hydroxide (Magnesium Hydroxide 30 Ml Udc) 30 ml PO DAILY PRN PRN Reason: Constipation Meclizine HCl (Meclizine Hcl 12.5 Mg Tablet) 25 mg PO Q6HR [facility] Last Admin: 09/21/22 06:28 Dose: 25 mg Documented By: Admin: 09/21/22 00:58 Dose: Not Given Documented By: AGUS Naloxone HCl (Naloxone 0.4 Mg/Ml Vial) 0.2 mg IV Q2MIN PRN PRN Reason: Opiate Reversal Non-Formulary Medication (Magnesium) 15 mg PO DAILY [facility] Ondansetron HCl (Ondansetron 4 Mg/2 Ml Inj) 4 mg IV Q8HR PRN PRN Reason: Nausea And Vomiting Discontinued Medications Acetaminophen (Acetaminophen 325 Mg Tablet) 650 mg PO Q6H PRN PRN Reason: Fever/Mild Pain (1-3) Last Admin: 09/20/22 16:43 Dose: 650 mg Documented By: MONICA Diazepam (Diazepam 10 Mg/2 Ml Syringe) 2 mg IV NOW ONE Stop: 09/20/22 12:24 Last Admin: 09/20/22 12:32 Dose: 2 mg Documented By: TIFFANI Diazepam (Diazepam 10 Mg/2 Ml Syringe) 2 mg IV NOW ONE Stop: 09/20/22 16:20 Last Admin: 09/20/22 16:45 Dose: 2 mg Documented By: MONICA Lactated Ringer's (Lactated Ringers) 500 mls @ 1,000 mls/hr IV BOLUS ONE Stop: 09/20/22 10:42 Last Infusion: 09/20/22 12:07 Dose: 0 mls/hr Documented By: Admin: 09/20/22 10:37 Dose: 1,000 mls/hr Documented By: RADHA Sodium Chloride (Normal Saline 0.9%) 1,000 mls @ 125 mls/hr IV CONT LEONARDO Last Admin: 09/20/22 14:48 Dose: 125 mls/hr Documented By: MONICA Ibuprofen (Ibuprofen 400 Mg Tablet) 400 mg PO Q4H PRN PRN Reason: Pain, Mild (1-3) Last Admin: 09/20/22 16:43 Dose: 400 mg Documented By: MONICA Meclizine HCl (Meclizine Hcl 12.5 Mg Tablet) 25 mg PO NOW ONE Stop: 09/20/22 10:14 Last Admin: 09/20/22 10:36 Dose: 25 mg Documented By: CTS Vital Signs Vital signs: Vital Signs - 8 hr 09/20/22 09:33 09/20/22 09:31 09/20/22 09:32 Temperature 98.0 F Pulse Rate 72 89 77 Pulse Rate [Orthostatic Lying] Pulse Rate [Orthostatic Sitting] Pulse Rate [Orthostatic Standing] Respiratory Rate 16 Blood Pressure 163/78 H Blood Pressure [Orthostatic Lying] Blood Pressure [Orthostatic Sitting] Blood Pressure [Orthostatic Standing] Pulse Oximetry 100 97 99 Oxygen Delivery Method Room Air 09/20/22 09:32 09/20/22 10:28 09/20/22 10:00 Temperature Pulse Rate Pulse Rate [Orthostatic Lying] 82 Pulse Rate [Orthostatic Sitting] 80 Pulse Rate [Orthostatic Standing] 77 Respiratory Rate Blood Pressure 163/78 H 146/77 H Blood Pressure [Orthostatic Lying] 151/71 H Blood Pressure [Orthostatic Sitting] 160/75 H Blood Pressure [Orthostatic Standing] 146/77 H Pulse Oximetry Oxygen Delivery Method 09/20/22 10:00 09/20/22 10:18 09/20/22 10:18 Temperature Pulse Rate 66 84 Pulse Rate [Orthostatic Lying] Pulse Rate [Orthostatic Sitting] Pulse Rate [Orthostatic Standing] Respiratory Rate 27 H 17 Blood Pressure 160/75 H Blood Pressure [Orthostatic Lying] Blood Pressure [Orthostatic Sitting] Blood Pressure [Orthostatic Standing] Pulse Oximetry 97 100 Oxygen Delivery Method 09/20/22 10:21 09/20/22 10:21 09/20/22 10:30 Temperature Pulse Rate 71 Pulse Rate [Orthostatic Lying] Pulse Rate [Orthostatic Sitting] Pulse Rate [Orthostatic Standing] Respiratory Rate 24 Blood Pressure 151/71 H 162/75 H Blood Pressure [Orthostatic Lying] Blood Pressure [Orthostatic Sitting] Blood Pressure [Orthostatic Standing] Pulse Oximetry 99 Oxygen Delivery Method 09/20/22 10:30 09/20/22 11:00 09/20/22 11:30 Temperature Pulse Rate 61 60 62 Pulse Rate [Orthostatic Lying] Pulse Rate [Orthostatic Sitting] Pulse Rate [Orthostatic Standing] Respiratory Rate 16 22 20 Blood Pressure Blood Pressure [Orthostatic Lying] Blood Pressure [Orthostatic Sitting] Blood Pressure [Orthostatic Standing] Pulse Oximetry 99 99 100 Oxygen Delivery Method 09/20/22 12:00 09/20/22 12:08 09/20/22 12:08 Temperature Pulse Rate 60 61 Pulse Rate [Orthostatic Lying] Pulse Rate [Orthostatic Sitting] Pulse Rate [Orthostatic Standing] Respiratory Rate Blood Pressure 166/73 H Blood Pressure [Orthostatic Lying] Blood Pressure [Orthostatic Sitting] Blood Pressure [Orthostatic Standing] Pulse Oximetry 95 99 Oxygen Delivery Method 09/20/22 12:30 09/20/22 12:30 09/20/22 13:00 Temperature Pulse Rate 81 Pulse Rate [Orthostatic Lying] Pulse Rate [Orthostatic Sitting] Pulse Rate [Orthostatic Standing] Respiratory Rate 17 Blood Pressure 184/106 H 164/76 H Blood Pressure [Orthostatic Lying] Blood Pressure [Orthostatic Sitting] Blood Pressure [Orthostatic Standing] Pulse Oximetry 98 Oxygen Delivery Method 09/20/22 13:00 Temperature Pulse Rate 73 Pulse Rate [Orthostatic Lying] Pulse Rate [Orthostatic Sitting] Pulse Rate [Orthostatic Standing] Respiratory Rate 15 Blood Pressure Blood Pressure [Orthostatic Lying] Blood Pressure [Orthostatic Sitting] Blood Pressure [Orthostatic Standing] Pulse Oximetry 96 Oxygen Delivery Method MDM - Dizziness Lab Data 09/21/22 04:55 09/21/22 04:55 Labs: Lab Results 09/20/22 09/20/22 09/20/22 Range/Units 09:25 10:07 10:07 WBC 5.7 (4.5-11.0) X10^3/uL RBC 4.37 (4.0-5.2) X10^6/uL Hgb 14.1 (12.0-16.0) g/dL Hct 41.2 (36-46) % MCV 94.2 (80-100) fL MCH 32.2 (26-34) PG MCHC 34.2 (30-36) % RDW 13.6 (11.6-14.8) % Plt Count 234 (150-400) X10^3/uL Neut % (Auto) 46.7 L (50-75) % Lymph % (Auto) 40.7 H (25-40) % Benson % (Auto) 8.3 (3-14) % Eos % (Auto) 3.4 (2-4) % Baso % (Auto) 0.9 (0-2) % Neut # (Auto) 2700 (4426-8616) /uL Lymph # (Auto) 2300 (5745-5314) /uL Benson # (Auto) 500 (0-900) /uL Eos # (Auto) 200 (0-450) /uL Baso # (Auto) 0 (0-100) /uL PT 11.4 (10.1-12.7) SECONDS INR 1.0 (0.9-1.3) APTT 33 (26-36) SECONDS Sodium 138 (137-145) mmol/L Potassium 4.1 (3.4-5.1) mmol/L Chloride 104 (98-107) mmol/L Carbon Dioxide 29 (22-32) mmol/L BUN 17 (7-17) mg/dL Creatinine 0.60 (0.52-1.04) mg/dL Estimated GFR > 60 (>60) mL/min BUN/Creatinine Ratio 28.3 H (6-22) Glucose 91 (80-110) mg/dL Calcium 9.1 (8.4-10.2) mg/dL Magnesium 2.2 (1.6-2.3) mg/dL Total Bilirubin 0.6 (0.2-1.3) mg/dL AST 32 (14-36) IU/L ALT 22 (<35) IU/L Alkaline Phosphatase 54 (38-126) U/L Total Creatine Kinase 35 (30-135) U/L Troponin I < 0.012 (0.01-0.034) ng/mL Total Protein 7.1 (6.3-8.2) g/dL Albumin 4.2 (3.5-5.0) g/dL Globulin 2.9 (1.7-4.1) g/dL Albumin/Globulin Ratio 1.4 (1.0-2.8) Lipase 68 (23-300) U/L Urine Dip Bedside Urine Glucose Negative Bedside Urine Bilirubin - Negative Bedside Urine Ketone - Negative Urine Specific Guild 1.005 Bedside Urine Occult Blood - Negative Bedside Urine pH 8.0 Bedside Urine Protein - Negative Bedside Urine Urobilinogen - Negative Bedside Urine Nitrite - Negative Bedside Urine Leukocytes - Negative Esterase Imaging Data CTA - brain/neck: Radiologist's Impression: [address] [address] [address] Scan Report Signed Patient: Nathan Cervantes MR#: [id number] : 1945 Acct:[id number] Age/Sex: 77 / F Date of Service: 09/20/22 Loc: ED Accession Number: [id number] ?? Procedure: CT angio head and neck Ordering Provider: Freedom Flores MD PROCEDURE:? CT ANGIO HEAD AND NECK ? INDICATIONS:? dizzy ? TECHNIQUE:? Pre-contrast 4.5 mm thick sections acquired from the foramen magnum to the vertex.? After the administration of intravenous contrast, 1 mm thick sections acquired from the aortic arch through the [place] of [place].? Post-contrast 4.5 mm thick sections then re- acquired from the foramen magnum to the vertex.? 3-dimensional ensdkjt-vwfzmiasr-njqazvsknv (MIP) and/or volume rendering reformats were acquired of the central intracranial vasculature and neck separately. For radiation dose reduction, the following was used:? automated exposure control, adjustment of mA and/or kV according to patient size.? ? COMPARISON:? , CT, HEAD AND NECK ANGIO, 03/29/2016, 11:14. ? FINDINGS:? Image quality:? Excellent.? ? BRAIN:? The ventricular system and cortical sulci demonstrate atrophy, consistent for the patient's stated age. There are areas of hypodensity within the periventricular and subcortical white matter.? There is no acute intra-or extra axial fluid collection. No acute hemorrhage, mass lesion or midline shift. Brainstem is unremarkable. G lobes are symmetrical. Sinuses are aerated. Osseous structures are intact. ? ? HEAD CT ANGIOGRAPHY:? Anterior circulation:? Intracranial internal carotid arteries are normal in size and flow.? The flow within the paired anterior cerebral arteries is normal and symmetric.? The flow within the middle cerebral arteries is normal and symmetric.? The anterior communicating artery is seen.? No aneurysms are seen.? ? Posterior circulation:? Left vertebral artery dominance.? Visualized portions of the vertebral arteries demonstrate normal caliber, and join to form a normal appearing basilar artery.? Flow within the posterior cerebral arteries is normal and symmetric.? No aneurysms are seen.? ? NECK CT ANGIOGRAPHY:? Carotid system:? The great vessels demonstrate a conventional anatomy as they arise from the aortic arch.? The origins of the common carotid arteries appear patent.? The common carotid arteries demonstrate normal caliber and courses.? The bifurcation regions are both widely patent.? The internal carotid arteries demonstrate normal calibers and courses.? ? Posterior circulation:? The origins of the vertebral arteries both appear widely patent.? The more superior extracranial portions of both vertebral arteries also demonstrate normal courses and calibers.? They join to form a normal appearing basilar artery.? ? Soft tissues:? Visualized neck soft tissues demonstrate no suspicious abnormalities.? ? Bones:? No suspicious bony lesions.? Visualized cervical spine appears normally aligned.? IMPRESSION:? ? 1. No acute intracranial process. ? 2. Moderate atrophy and chronic microvascular ischemic changes. ? 3. No areas of hemodynamically significant stenosis, vascular occlusion or aneurysmal dilation within the anterior circulation. ? 4. No areas of hemodynamically significant stenosis, vascular occlusion or aneurysmal dilation within the posterior circulation.? ? Any quantitative measurements of stenosis were performed using NASCET criteria.? ? ? Dictated by: Breanna Spain M.D. on 09/20/2022 at 11:09 ? ? Approved by: Breanna Spain M.D. on 09/20/2022 at 11:13 ? Chest x-ray: Radiologist's Impression: [place] [address] XRay Report Signed Patient: Nathan Cervantes MR#: [id number] : 1945 Acct:[id number] Age/Sex: 77 / F Date of Service: 09/20/22 Loc: ED Accession Number: [id number] ?? Procedure: XR chest 1V Ordering Provider: Freedom Flores MD PROCEDURE:? XR CHEST 1V ? INDICATIONS:? chest pain ? TECHNIQUE:? One view of the chest was acquired.? ? COMPARISON:? , , XR CHEST 1V, 07/21/2022, 8:46. ? FINDINGS:? ? Surgical changes and devices:? Pacemaker. ? Lungs and pleura:? Lungs are clear.? No pleural effusions or pneumothorax.? ? Mediastinum:? Mediastinal contours appear normal.? Heart size is normal.? ? Bones and chest wall:? No suspicious bony lesions.? Overlying soft tissues appear unremarkable.? ? IMPRESSION:? No acute pulmonary process. ? ? Dictated by: Breanna Spain M.D. on 09/20/2022 at 10:30 ? ? Approved by: Breanna Spain M.D. on 09/20/2022 at 10:34 ? MDM Narrative Medical decision making narrative: Patient brought in by ambulance for complaints of dizziness with positional changes. at bedside. Blood sugar 109. Patient went to bed around 9:00 p.m. without any complaints. Awoke at 5:30 a.m. in the morning to go to the bathroom without any dizziness, however when back to bed and awoke at 6:00 a.m. and try to get out of bed and was too dizzy. No slurred speech facial droop limb numbness tingling or weakness. No headache. No chest pain or palpitations. Patient states had similar episode in the last year and was seen by provider and thought it was reaction to gabapentin. She is no longer taking it. Patient does have on her medical history history of TIA. Fast exam is negative. After history and exam CBC CMP EKG troponin CT angiogram head and neck magnesium normal saline meclizine [facility] CC: Dizziness Complicating co-morbidities: History of pacemaker Data collected from: EMS patient Medical records reviewed: No recent visit here for this complaint Differential considered: Includes but not limited to stroke TIA vertigo arrhythmia Exam documented above, pertinent findings include: Patient immediately dizzy when trying to sit up in bed or change position, no dizziness with rotating her head left and right Lab Test results independently reviewed as above. Pertinent findings: Hemoglo bin 14.1 hematocrit 41 BUN 17 creatinine 0.6 troponin less than 0.012 Independently reviewed EKG atrial paced rhythm and prolonged AV conduction, right bundle-branch block Imaging studies independently reviewed: CT angiogram head and neck no acute finding chest x-ray no acute finding Consultations: 12:[address] Gandhi, primary provider on-call for patient's doctor, would like to try Valium and if no improvement call him back for admission. 1:[address] Gandhi again, he will admit patient. Treatments: Normal saline Antivert Valium Re-evaluations: Reviewed results with patient. She does agree for admission for balance of workup and management of dizziness. 1:30 p.m.. Patient states still dizzy with Valium. She does agree for admit. Family at bedside. They do agree Discussion: Appropriate for admission intractable dizziness. Stroke can not be excluded, patient can not get MRI due to pacemaker. At this time images and EKG and laboratory studies are reassuring. Likely not cardiac origin of dizziness. Interrogation however was done. Diagnosis: Intractable dizziness Discharge Plan Departure Patient Disposition: Admitted as Observation Clinical Impression: Dizziness Admit Date/Time: 09/20/22 13:40 Admit Provider: Ken Gandhi
[2022-09-20 10:25] LABS: Prothrombin Time 11.4 SECONDS (10.1-12.7)
[2022-09-20 10:28] LABS: PTT Partial Thromboplastin Tim 33 SECONDS (26-36)
[2022-09-20 10:31] LABS: Alanine Aminotransferase 22 IU/L (<35); Albumin 4.2 g/dL (3.5-5.0); Albumin Globulin Ratio 1.4 (1.0-2.8); Alkaline Phosphatase 54 U/L (38-126); Aspartate Aminotransferase 32 IU/L (14-36); BUN Creatinine Ratio 28.3 (6-22); Bilirubin Total 0.6 mg/dL (0.2-1.3); Blood Urea Nitrogen 17 mg/dL (7-17); Calcium 9.1 mg/dL (8.4-10.2); Carbon Dioxide 29 mmol/L (22-32); Chloride 104 mmol/L (98-107); Creatine Kinase 35 U/L (30-135); Estimated Glomerular Filt Rate > 60 mL/min (>60); Globulin 2.9 g/dL (1.7-4.1); Glucose 91 mg/dL (80-110); HEMOLYSIS 33 (0-50); Lipase 68 U/L (23-300); Magnesium 2.2 mg/dL (1.6-2.3); Potassium 4.1 mmol/L (3.4-5.1); Sodium 138 mmol/L (137-145); Total Protein 7.1 g/dL (6.3-8.2)
[2022-09-20] MEDS: MECLIZINE HCL 12.5 MG TABLET 25 MG PO (10:36)
[2022-09-20] MEDS: LACTATED RINGERS 500 ML 1000 ML IV (10:37)
[2022-09-20 10:42] LABS: Troponin I < 0.012 ng/mL (0.01-0.034)
--- NOTE | 2022-09-20 10:53 | DI.CT.S_ITS ---
PROCEDURE: CT ANGIO HEAD AND NECK INDICATIONS: dizzy TECHNIQUE: Pre-contrast 4.5 mm thick sections acquired from the foramen magnum to the vertex. After the administration of intravenous contrast, 1 mm thick sections acquired from the aortic arch through the [place] of [place]. Post-contrast 4.5 mm thick sections then re-acquired from the foramen magnum to the vertex. 3-dimensional fsuwxba-qoksdpmxa-iyhkqcqsry (MIP) and/or volume rendering reformats were acquired of the central intracranial vasculature and neck separately. For radiation dose reduction, the following was used: automated exposure control, adjustment of mA and/or kV according to patient size. COMPARISON: [facility], CT, HEAD AND NECK ANGIO, 03/29/2016, 11:14. FINDINGS: Image quality: Excellent. BRAIN: The ventricular system and cortical sulci demonstrate atrophy, consistent for the patient's stated age. There are areas of hypodensity within the periventricular and subcortical white matter. There is no acute intra-or extra axial fluid collection. No acute hemorrhage, mass lesion or midline shift. Brainstem is unremarkable. Globes are symmetrical. Sinuses are aerated. Osseous structures are intact. HEAD CT ANGIOGRAPHY: Anterior circulation: Intracranial internal carotid arteries are normal in size and flow. The flow within the paired anterior cerebral arteries is normal and symmetric. The flow within the middle cerebral arteries is normal and symmetric. The anterior communicating artery is seen. No aneurysms are seen. Posterior circulation: Left vertebral artery dominance. Visualized portions of the vertebral arteries demonstrate normal caliber, and join to form a normal appearing basilar artery. Flow within the posterior cerebral arteries is normal and symmetric. No aneurysms are seen. NECK CT ANGIOGRAPHY: Carotid system: The great vessels demonstrate a conventional anatomy as they arise from the aortic arch. The origins of the common carotid arteries appear patent. The common carotid arteries demonstrate normal caliber and courses. The bifurcation regions are both widely patent. The internal carotid arteries demonstrate normal calibers and courses. Posterior circulation: The origins of the vertebral arteries both appear widely patent. The more superior extracranial portions of both vertebral arteries also demonstrate normal courses and calibers. They join to form a normal appearing basilar artery. Soft tissues: Visualized neck soft tissues demonstrate no suspicious abnormalities. Bones: No suspicious bony lesions. Visualized cervical spine appears normally aligned. IMPRESSION: 1. No acute intracranial process. 2. Moderate atrophy and chronic microvascular ischemic changes. 3. No areas of hemodynamically significant stenosis, vascular occlusion or aneurysmal dilation within the anterior circulation. 4. No areas of hemodynamically significant stenosis, vascular occlusion or aneurysmal dilation within the posterior circulation. Any quantitative measurements of stenosis were performed using NASCET criteria. Dictated by: Breanna Spain M.D. on 09/20/2022 at 11:09 Approved by: Breanna Spain M.D. on 09/20/2022 at 11:13
--- NOTE | 2022-09-20 12:23 | DI.ECHO.S_ITS ---
[facility] +---------+ : : [address] : : : : [id number] : : : : Phone: [phone]+ Echocardiogram Report + + :Name: LUDWIN OCHOA Study Date: 09/20/2022 Height: 66.5 in : :[facility] ReadingLocation: Weight: 170 lb : : Gender: Female BSA: 1.9 m2 : :: 1945 Age: 77 yrs BP: 184/106 mmHg: :Reason For Study: SYNCOPE : :Ordering Physician: CHLOE, : :AILYN Performed By: Fiorella Ibrahim : :Referring: AILYN CORONA : + + Interpretation Summary Normal sinus rhythm. Heart rate is 72-86 bpm. Normal LV size and wall thickness. Normal wall motion and LV systolic function. Ejection fraction is 60-65%. Normal chamber sizes. No significant valvular abnormalities. No prior study available for comparison. Procedure: A two-dimensional transthoracic echocardiogram with color flow and Doppler was performed. The study quality was technically adequate. There is no prior echocardiogram noted for this patient. The patient was in sinus rhythm with heart rates between 72-86 bpm during the exam. Left Ventricle: The left ventricle is normal in size and wall thickness. The ejection fraction is estimated to be 60-65%. Diastolic function could not be accurately assessed due to unobtainable data. Right Ventricle: The right ventricle is normal in size and function. There is a pacemaker lead in the right ventricle. Atria: The left atrial size is normal. Right atrial size is normal. There is no Doppler evidence for an interatrial shunt. Mitral Valve: The mitral valve leaflets appear borderline thickened, but open well. There is mild mitral regurgitation. Aortic Valve: The aortic valve is trileaflet. The aortic valve opens well. There is no aortic valve stenosis. No aortic regurgitation is present. Tricuspid Valve: There is mild tricuspid regurgitation. The right ventricular systolic pressure is estimated to be at least 27 mmHg based on an estimated right atrial pressure of 3 mm Hg. Pulmonic Valve: The pulmonic valve leaflets are thin and pliable; valve motion is normal. There is trace pulmonic regurgitation. Great Vessels: The aortic root is normal size. The dimensions of the ascending aorta are normal. The IVC is of normal diameter and collapses greater than 50% with a sniff. This suggests a low right atrial pressure of 3 mm Hg. Pericardium/ Pleura There is no pericardial effusion. There is no pleural effusion. MMode/2D Measurements & Calculations LVIDd: 3.7 cm LVOT diam: 2.0 cm LVIDs: 2.5 cm Ao root diam: 3.2 cm FS: 31.4 % asc Aorta Diam: 3.0 cm IVSd: 0.86 cm Ao Arch Diam (Prox Trans): 2.5 cm LVPWd: 0.78 cm LV mendez. diameter/BSA (cm/m^2): 2.0 LV sys. diameter/BSA (cm/m^2): 1.3 LA A2 area: 14.4 cm2 RA long axis: 4.3 cm LA A4 area: 11.7 cm2 RA area: 10.9 cm2 LA length (vol): 4.3 cm RA vol: 23.3 ml LA vol: 33.3 ml RA : 12.4 ml/m2 LA vol index: 17.7 ml/m2 IVC diam: 1.2 cm RVD1 (basal): 3.2 cm TAPSE: 1.8 cm Doppler Measurements & Calculations Ao V2 max: 106.6 cm/sec LVOT Max Ezekiel: 85.8 cm/sec Ao V2 mean: 79.0 cm/sec LV V1 max P.9 mmHg Ao max P.5 mmHg LV V1 VTI: 18.0 cm Ao mean P.7 mmHg ARMOND(I,D): 2.7 cm2 Ao V2 VTI: 22.0 cm ARMOND(V,D): 2.6 cm2 sev ratio: 0.82 ARMOND indexed to BSA (cm^2/m^2): 1.4 Med Peak E' Ezekiel: 5.3 cm/sec TR max ezekiel: 243.4 cm/sec Lat Peak E' Ezekiel: 8.2 cm/sec TR max P.7 mmHg PA V2 max: 85.0 cm/sec PA V2 mean: 59.4 cm/sec PA mean P.6 mmHg PA pr(Accel): 46.5 mmHg SV(LVOT): 58.8 ml Electronically signed by: Tish Jones M.D. on Reading Physician:09/20/2022 01:54 PM
[2022-09-20] MEDS: diazePAM 10 MG/2 ML SYRINGE 2 MG IV ×2 (12:32→16:45)
--- NOTE | 2022-09-20 13:17 | PC.NURSE ---
Pt continues to have intermittent dizziness despite meclazine and valium. Had CT obtained and spoke to Dr Flores regarding normal results. Awaiting ECHO.
[2022-09-20] MEDS: SODIUM CHLORIDE 0.9% 1,000 ML 125 ML IV ×3 (14:48→22:44)
[2022-09-20] MEDS: ACETAMINOPHEN 325 MG TABLET 650 MG PO (16:43)
[2022-09-20] MEDS: IBUPROFEN 400 MG TABLET PO (16:43)
--- NOTE | 2022-09-20 19:28 | P.HP_ITS ---
History of Present Illness History of Present Illness Date Patient Seen: 09/20/22 Time Patient Seen: 19:29 Chief complaint: Weakness,dizzy when changing position Narrative: Patient is a 77-year-old white female with history of lung cancer and symptomatic bradycardia who presents with dizziness. Apparently she was taken breakfast and then was feeling pretty good maybe a little fatigued and laid into the bed and got up and had an episode of dizziness it was spinning. She laid back down it seemed to get better. She did not have any headaches visual symptoms numbness tingling leg pain or abdominal discomfort she is had no fevers no chills and otherwise has felt well. She laid there for low back called her he tried to get her up and she has dizzy and then had another episode where she felt like she passed out. Laid back down and 911 was called. Patient has been persistently vertiginous since the time she laid down in bed and has had no other changes. Patient has a history of 2 weeks ago having similar episode almost exactly was taken to the emergency room negative workup felt to be secondary to gabapentin she was taken. No one else in the family has been sick she otherwise feels well when she is lying still she has no issue at this time. She had no significant cardiac issue or other change she is otherwise been feeling well except for some back pain and right leg pain which happened after she had a fall on her buttock about a month ago after pulling a weed. She otherwise has no new changes or complaints. [facility] Medical History CVA (cerebral vascular accident) Neuroendocrine neoplasm of lung TIA (transient ischemic attack) Weakness generalized Surgical History History of cholecystectomy Family History Grandmother Colon cancer Social History household members: spouse, family and children Smoking Status: Never smoker alcohol intake: never substance use type: does not use Meds Home Medications and Allergies Home Medications Medication Instructions Recorded Confirmed Type CA PANTOTHENATE/FOLIC ACID/VIT 1 tab PO QDAY ##0 04/21/12 09/20/22 History (MULTIVITAMIN) CHOLECALCIFEROL (VITAMIN D3) 2,000 units PO DAILY #0 caps 12/08/12 09/20/22 History (VITAMIN D) alendronate 70 mg tablet (Fosamax) 70 mg PO WEEKLY 12/31/20 09/20/22 History magnesium 500 mg tablet 15 mg PO DAILY 12/31/20 09/20/22 History Lactobacillus acidophilus 10 10,000 mmu cells PO DAILY 05/17/21 09/20/22 History billion cell capsule (Probiotic) ascorbic acid (vitamin C) 1,000 mg 1,000 cap PO QAM 05/17/21 09/20/22 History capsule,extended release calcium carbonate 600 mg-vitamin 1 tab PO QAM 05/17/21 09/20/22 History D3 20 mcg (800 unit) chewable tablet (Caltrate 600 plus D) omega 3-jbl-sij-fish oil 1,200 mg 1 cap PO BID 05/17/21 09/20/22 History (144 mg-216 mg) capsule (Fish Oil) tyrosine 500 mg tablet 500 mg PO QAC 05/17/21 09/20/22 History cholecalciferol (vitamin D3) 125 125 mcg PO 3XW 11/15/21 09/20/22 History mcg (5,000 unit) tablet (Vitamin D3) prasterone (dhea)/calcium 1 tab PO QAM 11/15/21 09/20/22 History phosphate dibasic 25 mg-43 mg tablet Allergies Allergy/AdvReac Type Severity Reaction Status Date / Time erythromycin base Allergy Unknown RASH Verified 07/21/22 08:42 [ERYTHROMYCIN BASE] Review of Systems Review of Systems Narrative: Please see history and physical otherwise negative Exam Vital Signs (past 8 hours): - 09/20/22 11:30 09/20/22 12:00 09/20/22 12:08 Temperature Pulse Rate 62 60 Respiratory Rate 20 Blood Pressure 166/73 H Pulse Oximetry 100 95 Oxygen Flow Rate 09/20/22 12:08 09/20/22 12:30 09/20/22 12:30 Temperature Pulse Rate 61 81 Respiratory Rate 17 Blood Pressure 184/106 H Pulse Oximetry 99 98 Oxygen Flow Rate 09/20/22 13:00 09/20/22 13:00 09/20/22 14:35 Temperature 96.8 F L Pulse Rate 73 80 Respiratory Rate 15 14 Blood Pressure 164/76 H 137/66 Pulse Oximetry 96 98 Oxygen Flow Rate 0 09/20/22 16:00 Temperature 97.0 F L Pulse Rate 63 Respiratory Rate 15 Blood Pressure 137/66 Pulse Oximetry 98 Oxygen Flow Rate 0 Oxygen Delivery Method Room Air Oxygen Flow Rate 0 Narrative Exam Narrative: Alert female with audible breathing in no acute distress Pupils are equal and responsive to light no tenderness in the scalp or head. Neck is supple without adenopathy JVD or bruits lungs are clear heart is regular rate and rhythm out murmur abdomen is benign extremities are without cyanosis clubbing edema. Neurologic exam shows cranial nerves 2 through intact motor is 5/5 reflexes 2+ and symmetric. Boptay-dl-iltw is normal afsv-vy-xqcs is normal she does have 8-10 beats of lateral gaze nystagmus Objective Labs 09/20/22 09:25 09/20/22 10:07 Labs: Laboratory Results - last 24 hr 09/20/22 09/20/22 09/20/22 09:25 10:07 10:07 WBC 5.7 RBC 4.37 Hgb 14.1 Hct 41.2 MCV 94.2 MCH 32.2 MCHC 34.2 RDW 13.6 Plt Count 234 Neut % (Auto) 46.7 L Lymph % (Auto) 40.7 H Redwood % (Auto) 8.3 Eos % (Auto) 3.4 Baso % (Auto) 0.9 Neut # (Auto) 2700 Lymph # (Auto) 2300 Redwood # (Auto) 500 Eos # (Auto) 200 Baso # (Auto) 0 PT 11.4 INR 1.0 APTT 33 Sodium 138 Potassium 4.1 Chloride 104 Carbon Dioxide 29 BUN 17 Creatinine 0.60 Estimated GFR > 60 BUN/Creatinine Ratio 28.3 H Glucose 91 Calcium 9.1 Magnesium 2.2 Total Bilirubin 0.6 AST 32 ALT 22 Alkaline Phosphatase 54 Total Creatine Kinase 35 Troponin I < 0.012 Total Protein 7.1 Albumin 4.2 Globulin 2.9 Albumin/Globulin Ratio 1.4 Lipase 68 Assessment & Plan Assessment & Plan narrative: Intractable vertigo. Really not a blood pressure type dizziness. She does not describe the world getting black although she did black out for a 2nd. It all seems to be spinning. Interesting she is not responded to either meclizine or Valium although we have not done it consistently. She does feel a little bit better tonight. No evidence of infection. Posterior vertebral circulation is unremarkable. She has no evidence of ongoing stroke. At this point we are going to be aggressive with meclizine and Valium were going to hydrate and watch closely. Will place on tele for arrhythmias but I do not think that is an issue at this time Re-evaluate in a.m.. Unable to get MRI secondary to pacemaker Back pain with sciatica. Motion seems to be pretty good. I am not clear that she has a pinched nerve may need imaging and further workup. Will see how tomorrow goes. And primary care doctor can work that up as either inpatient or outpatient how he decides. History of lung cancer. No evidence of metastasis has been doing well will fol low. History of symptomatic bradycardia stable. Will follow. Code status full. DVT prophylaxis Lovenox Disposition. Unclear. Hopefully home tomorrow.
[2022-09-20] MEDS: IBUPROFEN 600 MG TABLET PO (20:09)
[2022-09-20] MEDS: LACTOBACILLUS ACIDOPHILUS TABLET 2 EACH PO (20:10)
[2022-09-21] VITALS (8 sets, daily range): BP systolic 110–140; BP diastolic 58–73; PULSE 67–79; RESP 16–19; TEMP 36–36.8; O2SAT 95–98
[2022-09-21 05:09] LABS: Add Manual Diff / Slide Review NO; Basophils Absolute Auto 100 /uL (0-100); Basophils Percent Auto 1.2 % (0-2); Eosinophils Absolute Auto 200 /uL (0-450); Eosinophils Percent Auto 5.3 % (2-4); Hematocrit 37.5 % (36-46); Hemoglobin 12.9 g/dL (12.0-16.0); Lymphocytes Absolute Auto 2100 /uL (1100-4500); Lymphocytes Percent Auto 46.8 % (25-40); Mean Corpuscular HGB Conc 34.3 % (30-36); Mean Corpuscular Hemoglobin 32.7 PG (26-34); Mean Corpuscular Volume 95.1 fL (80-100); Monocytes Absolute Auto 400 /uL (0-900); Monocytes Percent Auto 8.8 % (3-14); Neutrophils Absolute Auto 1700 /uL (1500-7000); Neutrophils Percent Auto 37.9 % (50-75); Platelet Count 229 X10^3/uL (150-400); Red Blood Cell Count 3.94 X10^6/uL (4.0-5.2); Red Cell Distribution Width 13.7 % (11.6-14.8); White Blood Cell Count 4.5 X10^3/uL (4.5-11.0)
[2022-09-21 05:18] LABS: Alanine Aminotransferase 18 IU/L (<35); Albumin 3.5 g/dL (3.5-5.0); Albumin Globulin Ratio 1.4 (1.0-2.8); Alkaline Phosphatase 47 U/L (38-126); Aspartate Aminotransferase 23 IU/L (14-36); BUN Creatinine Ratio 27.9 (6-22); Bilirubin Total 0.4 mg/dL (0.2-1.3); Blood Urea Nitrogen 17 mg/dL (7-17); Calcium 8.1 mg/dL (8.4-10.2); Carbon Dioxide 28 mmol/L (22-32); Chloride 109 mmol/L (98-107); Estimated Glomerular Filt Rate > 60 mL/min (>60); Globulin 2.5 g/dL (1.7-4.1); Glucose 88 mg/dL (80-110); HEMOLYSIS 22 (0-50); Potassium 4.1 mmol/L (3.4-5.1); Sodium 140 mmol/L (137-145)
[2022-09-21] MEDS: SODIUM CHLORIDE 0.9% 1,000 ML 125 ML IV ×2 (06:25→17:30)
[2022-09-21] MEDS: diazePAM 5 MG TABLET PO (06:28)
[2022-09-21] MEDS: MECLIZINE HCL 12.5 MG TABLET 25 MG PO ×2 (06:28→13:26)
[2022-09-21] MEDS: MAGNESIUM OXIDE 400 MG TABLET PO (08:32)
[2022-09-21] MEDS: LACTOBACILLUS ACIDOPHILUS TABLET 2 EACH PO ×2 (08:32→21:47)
[2022-09-21] MEDS: IBUPROFEN 600 MG TABLET PO (08:32)
[2022-09-21] MEDS: ENOXAPARIN 40 MG/0.4 ML SYRINGE SUBCUT (08:33)
--- NOTE | 2022-09-21 09:04 | DI.RAD.S_ITS ---
PROCEDURE: XR LUMBAR SPINE 2-3V INDICATIONS: persistent back pain s/p fall 1 mo ago TECHNIQUE: 3 views of the lumbar spine were acquired. COMPARISON: [facility], , XR LUMBAR SPINE 2-3V, 07/17/2022, 8:58. FINDINGS: Bones: 5 eio-env-aljswuc vertebrae are present. There is normal bony alignment. No vertebral body compression fractures. No suspicious bony lesions. Moderate to severe disc height loss at L4-5 and L5-S1. Moderate disc height loss at remaining levels. Facet arthrosis L4 through S1. Soft tissues: Overlying bowel gas pattern is normal. No suspicious soft tissue calcifications. IMPRESSION: Moderate to severe, multilevel degenerative disc disease and lower lumbar facet arthrosis. No acute, displaced fracture or traumatic subluxation. Dictated by: Alejandro Yan M.D. on 09/21/2022 at 10:28 Approved by: Alejandro Yan M.D. on 09/21/2022 at 10:29
--- NOTE | 2022-09-21 11:41 | CM.DANOTE ---
Addendum entered by Alexandra Garibay R.N. 09/21/22 14:08: Spoke to physical therapist, and is recommending that patient go to outpatient P.T. for vestibular therapy. This would need to go through the primary care provider for referral. She is reaching out to Dr. Patterson to see if he can place order. Original Note: DCP: Case received, EMR reviewed and met with patient. Introduced self and role. Was able to obtain information regarding patient's baseline activity level at home prior to hospitalization. DCP assessment completed with information currently available. Patient is a 77 year old female who admitted yesterday afternoon to the care of the hospitalist team. PCP: Dr. Patterson. Payer: confirmed: [facility]. Patient came to the hospital via ambulance secondary to having complaints of dizziness with positional changes. Notes indicate that patient had gone to bed with no complaints, and had awoken to some dizziness, unable to get out of bed. Patient was diagnosed with intractable vertigo. Met with patient in her room. She was sitting up in bed, alert and oriented. Confirmed that she resides in [place] with spouse, Kaz. She is independent at baseline. Dr. Patterson had come by the office and indicated that she may benefit with home health. Patient does now have current P.T. orders. Mentioned this to patient, and stated that she has used [facility] before, and was pleased with them. Started the face to face process. P: DCP to continue to follow. Will see how she does with P.T. Will then send [facility] referral. Alexandra Garibay RN/Machinist Outside Discharge Planning/Care Management CM Discharge Assessment Start: 09/21/22 11:40 Freq: Status: Active Protocol: Document 09/21/22 11:40 (Rec: 09/21/22 11:41 [id number]) Discharge Planning Assessment Assigned Supervisor Shaving And Splitting Alexandra Garibay RN/Machinist Outside Advance Directives? Yes: Advance Directive Advance Directives on File Yes History Provided By Patient,Family Member,Medical Record Prior Living Arrangements House Household Members spouse,family,children Type of transporation used prior to Drives own vehicle admit Independent with ADL's Yes Is patient alert and oriented? Yes Caregiver for Another No Patient/Family Preference Home with Home Health Comment Patient expressed interest in [facility]. Barriers to Discharge No Discharge Plan Home Transportation Arrangement Spouse Whiteboard Updated in Patient Room with Yes name and ext. # of Supervisor Shaving And Splitting Review Status In Process Next Review Type Continued Stay Review
--- NOTE | 2022-09-21 12:38 | PT.IIE ---
Surgical History (Last Reviewed 09/20/22 @ 19:31 by Ken Gandhi MD) History of cholecystectomy Medical History (Last Reviewed 09/20/22 @ 19:31 by Ken Gandhi MD) CVA (cerebral vascular accident) Neuroendocrine neoplasm of lung TIA (transient ischemic attack) Weakness generalized Physical Therapy Inpatient Evaluation/Re-Eval M1 PT/OT-IP Prior Functional Status Start: 09/21/22 10:55 Freq: NEEDED Status: Active Protocol: Document 09/21/22 11:00 MB (Rec: 09/21/22 12:38 [id number]) Medical Review Prior Functional Status Medical History Reviewed Yes Diet/Fluid Consistency Regular Communication WNLs Mobility and Gait I Activities of Daily Living and IADL's I, did the driving Social History Household Members spouse,family,children Living Arrangements House Number of Floors (Floors) One Floor Number of Stairs To Enter/Railing? Several steps with a rail to enter Employment Status Retired Additional Social History Comment Pt with lethargy before treatment and feeling washed- out after treatment and does not provide a lot of details about home living M2 PT-IP Current Condition Start: 09/21/22 10:55 Freq: NEEDED Status: Active Protocol: Document 09/21/22 11:00 MB (Rec: 09/21/22 12:38 [id number]) Physical Therapy Current Condition Current Condition Evaluation Date 09/21/22 Treatment Diagnosis Right posterior canalithiasis BPPV, weakness and decreased mobility M3 PT-IP Subjective Start: 09/21/22 10:55 Freq: NEEDED Status: Active Protocol: Document 09/21/22 11:00 MB (Rec: 09/21/22 12:38 [id number]) Subjective Physical Therapy Visit Type Type Initial Evaluation Visit Start Time 11:00 Visit Stop Time 12:17 Total Visit Minutes 77 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 Patient Goals To decrease dizziness and move better before going home. Therapy Pain Assessment Pain When Pain Assessed At Rest Pain Present Pain Present Pain Reported Location Left Hip Intensity 4 Scale Used Kelley-Mon[place] (Faces) Description Pinching Pain Behaviors Facial Grimacing,Holding Area Pain Management Techniques Re-positioning M4 PT-IP Mobility and Gait Start: 09/21/22 10:55 Freq: NEEDED Status: Active Protocol: Document 09/21/22 11:00 MB (Rec: 09/21/22 12:38 MB [id number]) PT-Bed Mobility Assessment Rolling Type of Rolling Bilateral Level of Assist Maximal Assistance,1 Person Assistance Supine to Sit Supine to Sit Maximum Assistance,2 Person Assistance Sit to Supine Sit to Supine Maximum Assistance,1 Person Assistance Scooting Scooting to Edge of Bed Minimal Assistance PT-Transfer Assessment Sit to and From Stand Sit to and from Stand Contact Guard Assistance,2 Person Assistance,Use of Upper Extremities Equipment Transfer Assistive Device None Orthotic/Prosthetic Devices or Brace: No Transfers Transfer Destination Chair Transfer Technique Stand Step Pivot Transfer Ability Level of Assist Moderate Assistance,2 Person Assistance Comments Mobility Comments PT attempts to check orthostatics and pt with nystagmus and severe vertigo with attempting to sit up. B roll test with +1 max A. Heavy assistance of two people for all positioning to assess and treat BPPV: pt wash-out/weak and unable to assist much with positioning for two treatment assessments and maneuevers. Transferred to chair to sit up after treatment with step to pivot transfer. Gait Assessment Gait Gait Assistance Required: Minimum Assistance,2 Person Assist Distance (Feet) 1 Able to Maintain Weight Bearing Status Yes During Gait Assistive Devices Assistive Device None Orthotic/Prosthetic Devices or Brace: No Gait Deviations General Gait Pattern Decreased Feet Clearance Factors Limiting Gait Function Factors Limiting Gait Function Poor Balance,Poor Safety Awareness Comments Gait Comments Side stepping to the left to get in a better position on the bed for reverse Trendelenburg positioning to assess and treat BPPV PT-Balance Assessment Sitting Balance and Reactions Static Sitting Balance Ability Poor Dynamic Sitting Balance Ability Poor Standing Balance and Reactions Static Standing Balance Ability Poor Dynamic Standing Balance Ability Poor M5 PT-IP Objective Assessments Start: 09/21/22 10:55 Freq: NEEDED Status: Active Protocol: Document 09/21/22 11:00 MB (Rec: 09/21/22 12:38 MB [id number]) Orientation Orientation/Cognition Level of Alertness Alert Orientation Name,Age,Birthday,Month,Date, Year,Day of Week,Place, Situation Language Function Ability No Deficits Noted Safety Awareness Decreased Safety Awareness Memory Description No Deficits Noted Gross Range of Motion Lower Extremity ROM Assessment Within Functional Limits Strength Lower Extremity Strength Assessment Within Functional Limits Other Assessments Other Other Assessments Oculomotor screen normal for eye ROM, spontaneous nystagmus and tracking. Attempted to check orthostatics but severe dizziness supine to sitting and nystagmus noted and transitioned to BPPV assessment. BP and HR LUE in supine: 139/62, 67 M6 PT-IP Treatment Start: 09/21/22 10:55 Freq: NEEDED Status: Active Protocol: Document 09/21/22 11:00 MB (Rec: 09/21/22 12:38 MB [id number]) Physical Therapy Treatment Other Treatments Other Treatment Performed PT performs modified Cheryl to the left first given mild nystagmus and dizziness with left roll test. No nystagmus noted with left Fiona-Hallpike and when moving through the maneuever, nystagmus appears right ear posterior canal ( torsional right upbeating) and so second modified Cheryl performed to treat the right ear. Pt follows all commands for modified Cheryl for the right ear treatment except allowing PT to keep her chin towards left shoulder with sitting up and so treatment was technically not fully complete. Will observe symptoms and re-check if pt remains in hospital. M7 PT-IP Assessment and Plan Start: 09/21/22 10:55 Freq: NEEDED Status: Active Protocol: Document 09/21/22 11:00 MB (Rec: 09/21/22 12:38 MB [id number]) PT Summary Assessment and Plan Potential Rehabilitation Potential Good Status of Condition at Evaluation Evolving Summary Impairments Balance,Bed Mobility,Transfers ,Gait,Activity Tolerance Progress Towards Goals Slow Progress due to Activity Tolerance Assessment Summary Pt is a 77 y/o female reporting positional dizziness since she fell back on her left hip injuring her LB when pulling a weed that came out more quickly that she anticipated. PT could not get orthostatic assessment today d /t nystagmus and severe vertigo with supine to sit and so moved to BPPV assessment and treatment. Pt's nystagmus and symptoms are consistent with right posterior canalithiasis on right Fiona- Hallpike and with treatment. She does not tolerate final position for sitting up to fully complete the treatment and so will have to monitor if her symptoms and nystagmus clear over the course of the day/days. She will benefit from ongoing vestibular PT assessment to re-check and treat if needed her BPPV. Currently, she cannot walk or move much d/t symptomology and she is at increased risk for falls. Goals Bed Mobility Goal Independent Transfer Goal Independent Gait Goal Independent Gait Distance 100 Other Goals Pt will ascend and descend 3 steps with rail and no more than superv assistance to allow safe home entry. Days to Meet Goals 3 Frequency of Treatment Frequency Of Treatment Once a Day Treatment Plan Physical Therapy Treatment Plan Bed Mobility Training,Transfer Training,Gait Training, Balance Retraining,Discharge Planning,Neuromuscular Re-ed Weight Bearing Status Weight Bearing Status Weight Bear as Tolerated Recommendations To Nursing Amount of Assist Needed 2 Person Assist Discharge Recommendations PT Discharge Recommendations Home with 19/09 Assist Available,Home Health, Outpatient PT Transportation Needs at Discharge Private Vehicle
--- NOTE | 2022-09-21 18:16 | P.PN_ITS ---
Subjective Subjective Date Patient Seen: 09/21/22 Time Patient Seen: 08:40 Interval history: CC: vertigo and passing out Pt is doing a bit better this morning however still having dizzy spells. On interrogation she agrees that these dizzy spells are transient and only associated with movement of her head. Strong suspicion for BPPV will get PT in train today. Otherwise feeling ok - eating sleeping bathroom all fine. 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 Family is more concerned that she had two fainting spells while sitting up in bed on DoA - cardiology workup including pacemaker seem to be ok so far. Exam Vital Signs (past 8 hours): - 09/21/22 12:00 09/21/22 15:00 Temperature 97.8 F 98.2 F Pulse Rate 73 71 Respiratory Rate 18 17 Blood Pressure 135/73 140/66 Pulse Oximetry 96 95 Oxygen Flow Rate 0 0 Oxygen Delivery Method Room Air Oxygen Flow Rate 0 Narrative Exam Narrative: Pleasant older woman lying in bed Const General: cooperative, healthy appearing, comfortable, well developed and well groomed HENMD Other: normocephalic atraumatic Resp Other: clear to auscultation bilaterally Cardio Other: regular rate S1-S2 Neuro General: patient alert, patient awake, patient oriented x3, tone normal and moves all extremities Extrem General: full ROM and no pedal edema Objective Labs 09/21/22 04:55 09/21/22 04:55 Labs: Laboratory Results - last 24 hr 09/21/22 09/21/22 04:55 04:55 WBC 4.5 RBC 3.94 L Hgb 12.9 Hct 37.5 MCV 95.1 MCH 32.7 MCHC 34.3 RDW 13.7 Plt Count 229 Neut % (Auto) 37.9 L Lymph % (Auto) 46.8 H [place] % (Auto) 8.8 Eos % (Auto) 5.3 H Baso % (Auto) 1.2 Neut # (Auto) 1700 Lymph # (Auto) 2100 [place] # (Auto) 400 Eos # (Auto) 200 Baso # (Auto) 100 Sodium 140 Potassium 4.1 Chloride 109 H Carbon Dioxide 28 BUN 17 Creatinine 0.61 Estimated GFR > 60 BUN/Creatinine Ratio 27.9 H Glucose 88 Calcium 8.1 L Total Bilirubin 0.4 AST 23 ALT 18 Alkaline Phosphatase 47 Total Protein 6.0 L Albumin 3.5 Globulin 2.5 Albumin/Globulin Ratio 1.4 PFSH Medical History CVA (cerebral vascular accident) Neuroendocrine neoplasm of lung TIA (transient ischemic attack) Weakness generalized Surgical History History of cholecystectomy Family History Grandmother Colon cancer Social History household members: spouse, family and children Smoking Status: Never smoker alcohol intake: never substance use type: does not use Assessment & Plan Assessment & Plan narrative: #Transient vertigo strongly suspect BPPV based on history we will get PT evaluation there is nystagmus continue as needed meclizine and Valium until PT and hydrate unable to get MRI due to pacemaker # fainting/syncopal episodes? history is not great here however family does endorse checking blood sugars and blood pressures after this had happened which were within normal limits she does endorse feeling a bit foggy afterwards was no convulsions reported dehydration versus syncope versus? 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 evening update: PT Sofi reckons this is classic R-sided canalithiasis and pt is doing much better since repositioning exercises. etiology of fainting spells not clear will monitor overnight. Code status full PCP Tauxe DVT prophylaxis Lovenox Disposition.? home tomorrow pending PT input Time spent: 55 min
[2022-09-22] VITALS (8 sets, daily range): BP systolic 128–163; BP diastolic 63–85; PULSE 61–80; RESP 12–23; TEMP 36.1–36.5; O2SAT 94–98
[2022-09-22] MEDS: SODIUM CHLORIDE 0.9% 1,000 ML 125 ML IV ×2 (01:44→09:52)
[2022-09-22] MEDS: MECLIZINE HCL 12.5 MG TABLET 25 MG PO ×3 (05:24→18:20)
--- NOTE | 2022-09-22 05:30 | PC.NURSE ---
Pt ambulated easily before bed, and denied nausea/dizziness through the shift, declining meclizine. At 0515, while getting up to the commode, pt experienced a faye return of the same symptoms that brought her in, at the same level of severity. Heavy 2 person assist back to bed from commode. Pt is diaphoretic, hypertensive at 163/85, and unable to stand or move easily without assistance. She states I can't I'm too dizzy and reports that this the same as before, not worse, and she feels like she is going to pass out. Unable to obtain orthostatics, as pt cannot stand.
[2022-09-22] MEDS: LACTOBACILLUS ACIDOPHILUS TABLET 2 EACH PO ×2 (09:41→21:05)
[2022-09-22] MEDS: MAGNESIUM OXIDE 400 MG TABLET PO (09:41)
[2022-09-22] MEDS: ENOXAPARIN 40 MG/0.4 ML SYRINGE SUBCUT (09:41)
[2022-09-22 11:55] LABS: Add Manual Diff / Slide Review NO; Basophils Absolute Auto 100 /uL (0-100); Basophils Percent Auto 0.9 % (0-2); Eosinophils Absolute Auto 200 /uL (0-450); Eosinophils Percent Auto 3.8 % (2-4); Hematocrit 38.9 % (36-46); Hemoglobin 13.3 g/dL (12.0-16.0); Lymphocytes Absolute Auto 2200 /uL (1100-4500); Mean Corpuscular HGB Conc 34.3 % (30-36); Mean Corpuscular Hemoglobin 32.7 PG (26-34); Mean Corpuscular Volume 95.2 fL (80-100); Monocytes Absolute Auto 500 /uL (0-900); Monocytes Percent Auto 9.5 % (3-14); Neutrophils Absolute Auto 2800 /uL (1500-7000); Neutrophils Percent Auto 47.8 % (50-75); Platelet Count 240 X10^3/uL (150-400); Red Blood Cell Count 4.08 X10^6/uL (4.0-5.2); Red Cell Distribution Width 13.3 % (11.6-14.8); White Blood Cell Count 5.8 X10^3/uL (4.5-11.0)
[2022-09-22 12:25] LABS: Alanine Aminotransferase 19 IU/L (<35); Albumin 3.8 g/dL (3.5-5.0); Albumin Globulin Ratio 1.5 (1.0-2.8); Alkaline Phosphatase 53 U/L (38-126); Aspartate Aminotransferase 23 IU/L (14-36); BUN Creatinine Ratio 22.6 (6-22); Bilirubin Total 0.3 mg/dL (0.2-1.3); Blood Urea Nitrogen 12 mg/dL (7-17); Calcium 8.4 mg/dL (8.4-10.2); Carbon Dioxide 28 mmol/L (22-32); Chloride 108 mmol/L (98-107); Estimated Glomerular Filt Rate > 60 mL/min (>60); Globulin 2.6 g/dL (1.7-4.1); Glucose 87 mg/dL (80-110); HEMOLYSIS < 15 (0-50); Potassium 3.7 mmol/L (3.4-5.1); Sodium 141 mmol/L (137-145); Total Protein 6.4 g/dL (6.3-8.2)
--- NOTE | 2022-09-22 16:36 | PT.IPTN ---
Physical Therapy Treatment Note M2 PT-IP Current Condition Start: 09/21/22 10:55 Freq: NEEDED Status: Active Protocol: Document 09/22/22 16:27 ED (Rec: 09/22/22 16:36 ED [id number]) Physical Therapy Current Condition Current Condition Evaluation Date 09/21/22 Treatment Diagnosis Right posterior canalithiasis BPPV, weakness and decreased mobility M3 PT-IP Subjective Start: 09/21/22 10:55 Freq: NEEDED Status: Active Protocol: Document 09/22/22 16:27 ED (Rec: 09/22/22 16:36 ED [id number]) Subjective Physical Therapy Visit Type Type Treatment Note Visit Start Time 14:30 Visit Stop Time 15:00 Total Visit Minutes 30 Physical Therapy Visit Comments Patient Comments Pt states she is feeling better today than she did yesterday. States she was able to walk to the bathroom with nursing staff using FWW prior. Reports dizziness earlier in the day a few times. M4 PT-IP Mobility and Gait Start: 09/21/22 10:55 Freq: NEEDED Status: Active Protocol: Document 09/22/22 16:27 ED (Rec: 09/22/22 16:36 ED [id number]) PT-Bed Mobility Assessment Rolling Type of Rolling Bilateral Level of Assist Standby Assistance Supine to Sit Supine to Sit Standby Assistance Sit to Supine Sit to Supine Standby Assistance PT-Transfer Assessment Sit to and From Stand Sit to and from Stand Contact Guard Assistance Equipment Transfer Assistive Device Front Wheeled Walker Comments Mobility Comments Pt able to perform sit > stand using FWW CGA. Does require increased time to perform functional mobility. Gait Assessment Gait Gait Assistance Required: Contact Guard Assist Distance (Feet) 10 Assistive Devices Assistive Device Front Wheeled Walker Factors Limiting Gait Function Factors Limiting Gait Function Decreased Activity Tolerance, Poor Safety Awareness Comments Gait Comments Reported feeling fatigued after 10 feet walk using FWW. M5 PT-IP Objective Assessments Start: 09/21/22 10:55 Freq: NEEDED Status: Active Protocol: Document 09/21/22 11:00 MB (Rec: 09/21/22 12:38 MB [id number]) Orientation Orientation/Cognition Level of Alertness Alert Orientation Name,Age,Birthday,Month,Date, Year,Day of Week,Place, Situation Language Function Ability No Deficits Noted Safety Awareness Decreased Safety Awareness Memory Description No Deficits Noted Gross Range of Motion Lower Extremity ROM Assessment Within Functional Limits Strength Lower Extremity Strength Assessment Within Functional Limits Other Assessments Other Other Assessments Oculomotor screen normal for eye ROM, spontaneous nystagmus and tracking. Attempted to check orthostatics but severe dizziness supine to sitting and nystagmus noted and transitioned to BPPV assessment. BP and HR LUE in supine: 139/62, 67 M6 PT-IP Treatment Start: 09/21/22 10:55 Freq: NEEDED Status: Active Protocol: Document 09/22/22 16:27 ED (Rec: 09/22/22 16:36 ED [id number]) Physical Therapy Treatment Other Treatments Other Treatment Performed PT performed modified Cheryl maneuver x2 for R side. PT and patient able to perform entirety of modified Cheryl maneuver. However, after second time, patient became fatigued and washed out. Pt able to remain sitting EOB but with decreased postural control. PT assisted patient in lying back in bed. M7 PT-IP Assessment and Plan Start: 09/21/22 10:55 Freq: NEEDED Status: Active Protocol: Document 09/22/22 16:27 ED (Rec: 09/22/22 16:36 ED [id number]) PT Summary Assessment and Plan Potential Rehabilitation Potential Good Status of Condition at Evaluation Evolving Summary Impairments Balance,Bed Mobility,Transfers ,Gait,Activity Tolerance Progress Towards Goals Slow Progress due to Activity Tolerance Assessment Summary Pt improving in ability to perform bed mobility and ambulate using FWW. Pt previously max A for bed mobility but was effectively CGA throughout treatment today . Patient likely would have been able to perform more functional mobility drills had Cheryl maneuver not been performed. Frequency of Treatment Frequency Of Treatment Once a Day Treatment Plan Physical Therapy Treatment Plan Bed Mobility Training,Transfer Training,Gait Training, Balance Retraining,Discharge Planning,Neuromuscular Re-ed Discharge Recommendations PT Discharge Recommendations Home with 19/09 Assist Available,Home Health, Outpatient PT Transportation Needs at Discharge Private Vehicle
--- NOTE | 2022-09-22 17:15 | PM.PN.1 ---
Subjective Subjective Date Patient Seen: 09/22/22 Time Patient Seen: 08:40 Interval history: Chief complaint vertigo Patient worked with PT michelle Farah yesterday with strongly suggestive findings of right-sided canalithiasis. Patient did feel much better that evening however then she slept on her right side last night to this morning was feeling acutely dizzy again when she was trying to get out of bed also per family had another episode where she passed out on trying to sit up. We will proceed and get labs today try to work with PT again confirmed that her gait is doing okay get orthostatics. Exam Vital Signs (past 8 hours): - 09/22/22 12:00 09/22/22 15:44 Temperature 97.5 F L 97.3 F L Pulse Rate 80 61 Respiratory Rate 12 12 Blood Pressure 133/63 128/64 Pulse Oximetry 95 94 Oxygen Delivery Method Room Air Oxygen Flow Rate 0 Narrative Exam Narrative: Pleasant alert elderly lying in bed eating breakfast with family at bedside HENMT Other: Normocephalic atraumatic Resp Other: Clear to auscultation bilaterally Cardio Other: Regular rate S1-S2 GI Other: Soft nontender active bowel sounds Neuro General: patient alert, patient awake, patient oriented x3, tone normal, moves all extremities and no focal motor deficits Objective Labs 09/22/22 11:25 09/22/22 11:25 Labs: Laboratory Results - last 24 hr 09/22/22 09/22/22 11:25 11:25 WBC 5.8 RBC 4.08 Hgb 13.3 Hct 38.9 MCV 95.2 MCH 32.7 MCHC 34.3 RDW 13.3 Plt Count 240 Neut % (Auto) 47.8 L Lymph % (Auto) 38.0 [place] % (Auto) 9.5 Eos % (Auto) 3.8 Baso % (Auto) 0.9 Neut # (Auto) 2800 Lymph # (Auto) 2200 [place] # (Auto) 500 Eos # (Auto) 200 Baso # (Auto) 100 Sodium 141 Potassium 3.7 Chloride 108 H Carbon Dioxide 28 BUN 12 Creatinine 0.53 Estimated GFR > 60 BUN/Creatinine Ratio 22.6 H Glucose 87 Calcium 8.4 Total Bilirubin 0.3 AST 23 ALT 19 Alkaline Phosphatase 53 Total Protein 6.4 Albumin 3.8 Globulin 2.6 Albumin/Globulin Ratio 1.5 [facility] Medical History CVA (cerebral vascular accident) Neuroendocrine neoplasm of lung TIA (transient ischemic attack) Weakness generalized Surgical History History of cholecystectomy Family History Grandmother Colon cancer Social History household members: spouse, family and children Smoking Status: Never smoker alcohol intake: never substance use type: does not use Assessment & Plan Assessment & Plan narrative: #BPPV, R sided, present on admission Per PT I agree with dx based on hx will need to continue PT with Sofi as outpt. ?continue skylar meclizine ?unable to get MRI due to pacemaker # fainting/syncopal episodes? Another episode this morning based on history this seems to be happening in the morning on trying to get up and go to the bathroom suspect this may be transient drop in blood pressure associated with arousal will check orthostatics continue fall precautions. 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 Code status full PCP Tauxe DVT prophylaxis Lovenox Disposition.? home tomorrow with HH hopefully. Time spent: 60 min with multiple evaluations throughout day
[2022-09-22] MEDS: ACETAMINOPHEN 325 MG TABLET 650 MG PO (19:53)
[2022-09-22] MEDS: SODIUM CHLORIDE 0.9% FLUSH 10 ML IV (21:05)
[2022-09-23] VITALS: BP 141/76; PULSE 80; RESP 16; TEMP 36.4; O2SAT 97
[2022-09-23] MEDS: MECLIZINE HCL 12.5 MG TABLET 25 MG PO ×2 (00:01→06:00)
[2022-09-23 04:00] VITALS: BP 144/71; PULSE 75; RESP 18; TEMP 36.1; O2SAT 94
[2022-09-23 06:51] VITALS: BP 130/67; BP 132/78; BP 141/70; PULSE 62; PULSE 76; PULSE 85
[2022-09-23 08:00] VITALS: BP 138/66; PULSE 66; RESP 15; TEMP 36.3; O2SAT 96
[2022-09-23 09:00] VITALS: O2SAT 96
--- NOTE | 2022-09-23 09:24 | PM.DS.1 ---
History of Present Illness History of Present Illness Date Patient Seen: 09/23/22 Time Patient Seen: 08:55 Chief complaint: Weakness,dizzy when changing position Narrative: CC: dizziness Patient worked with PT Sofi vestibular specialist this morning feeling much better and ready to go home eating going to bathroom feeling stable I reviewed cardiac strip showing no asystolic events she is spending time paste and on past says that she can feel it pacing her when she lays on her left side sometimes. Discharge Providers Provider Date of admission: 09/20/22 13:40 Discharge Date: 09/23/22 Primary care physician: Krishan Patterson MD Consults: 09/21/22 09:03 Consult to Physical Therapy Evaluate & Treat Comment: vertigo/BPPV? Physician Instructions: Evaluate and Treat 09/22/22 09:05 Consult to Physical Therapy Evaluate & Treat Comment: mark bruner this morning Physician Instructions: Evaluate and Treat Discharge provider: Krishan Patterson MD Summary Hospital Course Discharge Diagnosis: #dizziness/BPPV #fainting spells Hospital Course: Ms. Woo is a pleasant lady who was admitted with acute vertigo transient that is associated with some fainting spells on arising from laying down. About 3 weeks ago she was pulling weeds in the garden and fell on her hind quarters with a big thump leaving her with a pinched nerve in her back 3 days after that she went to see a chiropractor who did some cervical manipulation after which she started having dizzy spells which increased in severity imaging was unremarkable unable to obtain MRI due to pacemaker which was interrogated without negative findings. She was admitted for observation and [facility] vestibular PT specialist Sofi diagnosed her with right canalithiasis which resolved over the course of 2 sessions with her she did have another episode where she sat up in bed and then seemed to pass out and fall backwards briefly she was on financial planning advisor during this with no evidence of asystole or bradycardia. 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 Status at Discharge Cognitive/behavioral status at discharge: at baseline, oriented Functional status at discharge: uses cane/walker Overall status at discharge: patient is progressing back to baseline Exam Vital Signs (past 8 hours): - 09/23/22 04:00 09/23/22 06:51 09/23/22 08:00 Temperature 96.9 F L 97.3 F L Pulse Rate 75 66 Pulse Rate [Orthostatic Lying] 85 Pulse Rate [Orthostatic Sitting] 76 Pulse Rate [Orthostatic Standing] 62 Respiratory Rate 18 15 Blood Pressure 144/71 H 138/66 Blood Pressure [Orthostatic Lying] 132/78 Blood Pressure [Orthostatic Sitting] 130/67 Blood Pressure [Orthostatic Standing] 141/70 H Pulse Oximetry 94 96 Oxygen Flow Rate 0 0 Oxygen Delivery Method Room Air Oxygen Flow Rate 0 Narrative Exam Narrative: Pleasant older sitting in chair after working with PT Resp Other: Clear to auscultation bilaterally Cardio Other: Regular rate S1-S2 GI Other: Soft nontender nondistended active bowel sounds Neuro General: patient alert, patient awake, patient oriented x3, tone normal, moves all extremities and no focal motor deficits Extrem Other: Good range of motion moves all extremities no pedal edema Psych Appearance: grossly normal Mental Status: mental status grossly normal Objective Labs 09/22/22 11:25 09/22/22 11:25 Labs: Laboratory Results - last 24 hr 09/22/22 09/22/22 11:25 11:25 WBC 5.8 RBC 4.08 Hgb 13.3 Hct 38.9 MCV 95.2 MCH 32.7 MCHC 34.3 RDW 13.3 Plt Count 240 Neut % (Auto) 47.8 L Lymph % (Auto) 38.0 [place] % (Auto) 9.5 Eos % (Auto) 3.8 Baso % (Auto) 0.9 Neut # (Auto) 2800 Lymph # (Auto) 2200 [place] # (Auto) 500 Eos # (Auto) 200 Baso # (Auto) 100 Sodium 141 Potassium 3.7 Chloride 108 H Carbon Dioxide 28 BUN 12 Creatinine 0.53 Estimated GFR > 60 BUN/Creatinine Ratio 22.6 H Glucose 87 Calcium 8.4 Total Bilirubin 0.3 AST 23 ALT 19 Alkaline Phosphatase 53 Total Protein 6.4 Albumin 3.8 Globulin 2.6 Albumin/Globulin Ratio 1.5 [facility] Medical History CVA (cerebral vascular accident) Neuroendocrine neoplasm of lung TIA (transient ischemic attack) Weakness generalized Surgical History History of cholecystectomy Family History Grandmother Colon cancer Social History household members: spouse, family and children Smoking Status: Never smoker alcohol intake: never substance use type: does not use Discharge Assessment & Plan Assessment and Plan Assessment: #BPPV, R sided, present on admission Per PT I agree with dx based on hx will need to continue PT with Sofi as outpt - she is here mondays and wednesdays usually. ?continue skylar meclizine on discharge # fainting/syncopal episodes? Normal cardiac rate per monitor. Suspect she is sitting up too fast - no episodes described where she is up and about for a while. Continue fall precautions - don't get out of bed until you feel quite yourself. 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 Code status full PCP Tauxe DVT prophylaxis Lovenox Disposition.? home today with , to f/up with [facility] PT and PCP in office Time spent: 40 min Discharge Plan Discharge Plan Patient Disposition: Home Health Service Provider Discharge Comment: will submit [facility] PT referral through outside EMR Discharge orders & Medications Prescriptions: New meclizine 12.5 mg Tablet 25 mg PO Q6HR Qty: 30 0RF Continued CA PANTOTHENATE/FOLIC ACID/VIT (MULTIVITAMIN) 1 tab PO QDAY Qty: 0 CHOLECALCIFEROL (VITAMIN D3) (VITAMIN D) 2,000 units PO DAILY Qty: 0 magnesium 500 mg Tablet 15 mg PO DAILY alendronate [Fosamax] 70 mg Tablet 70 mg PO WEEKLY tyrosine 500 mg Tablet 500 mg PO QAC Rx Instructions: administer on an empty stomach ascorbic acid (vitamin C) 1,000 mg Capsule, Extended Release 1,000 cap PO QAM omega 0-dek-tuh-fish oil [Fish Oil] 1,200 (144-216) mg Capsule 1 cap PO BID Probiotic 10 billion cell Capsule 10,000 mmu cells PO DAILY Caltrate 600 plus D 600 mg-20 mcg (800 unit) Tablet,Chewable 1 tab PO QAM prasterone (dhea)/calcium phos 25-43 mg Tablet 1 tab PO QAM Patient Comments: PT TAKES 1/2 TAB DAILY cholecalciferol (vitamin D3) [Vitamin D3] 125 mcg (5,000 unit) Tablet 125 mcg PO 3XW Follow up/Referrals: Krishan Patterson MD [Primary Care Provider] - Visit Report/Discharge Packet Stand Alone Forms: Patient Portal/API, Stroke Signs & Symptoms Discharge Data Primary Care Provider: Krishan Patterson Attending Provider: Ken Gandhi Admit Date/Time: 09/20/22 13:40
--- NOTE | 2022-09-23 09:32 | PT.IPTN ---
Physical Therapy Treatment Note M2 PT-IP Current Condition Start: 09/21/22 10:55 Freq: NEEDED Status: Active Protocol: Document 09/22/22 16:27 ED (Rec: 09/22/22 16:36 ED [id number]) Physical Therapy Current Condition Current Condition Evaluation Date 09/21/22 Treatment Diagnosis Right posterior canalithiasis BPPV, weakness and decreased mobility M3 PT-IP Subjective Start: 09/21/22 10:55 Freq: NEEDED Status: Active Protocol: Document 09/23/22 08:13 MB (Rec: 09/23/22 09:31 MB [id number]) Subjective Physical Therapy Visit Type Type Treatment Note Visit Start Time 08:13 Visit Stop Time 09:13 Total Visit Minutes 60 Physical Therapy Visit Comments Patient Comments Pt states that she had an episode with treatment yesterday. Therapy Pain Assessment Pain When Pain Assessed At Rest Pain Present Pain Present Denied Pain M4 PT-IP Mobility and Gait Start: 09/21/22 10:55 Freq: NEEDED Status: Active Protocol: Document 09/23/22 08:13 MB (Rec: 09/23/22 09:31 MB [id number]) PT-Bed Mobility Assessment Rolling Type of Rolling Log Rolling Level of Assist Independent Supine to Sit Supine to Sit Independent,1 Person Assistance,Head of Bed Elevated,Bedrails PT-Transfer Assessment Sit to and From Stand Sit to and from Stand Minimal Assistance Transfer Ability Level of Assist Maximum Assistance Comments Mobility Comments INKER to gait 20' around the bed to chair after repositioning maneuver Gait Assessment Gait Gait Assistance Required: Minimum Assistance Distance (Feet) 20 Assistive Devices Assistive Device Gait Belt Orthotic/Prosthetic Devices or Brace: No Factors Limiting Gait Function Factors Limiting Gait Function Poor Balance Comments Gait Comments INKER and imbalance immediately after repositioning maneuver PT-Balance Assessment Standing Balance and Reactions Static Standing Balance Ability Fair Dynamic Standing Balance Ability Fair Device Used INKER M5 PT-IP Objective Assessments Start: 09/21/22 10:55 Freq: NEEDED Status: Active Protocol: Document 09/21/22 11:00 MB (Rec: 09/21/22 12:38 MB [id number]) Orientation Orientation/Cognition Level of Alertness Alert Orientation Name,Age,Birthday,Month,Date, Year,Day of Week,Place, Situation Language Function Ability No Deficits Noted Safety Awareness Decreased Safety Awareness Memory Description No Deficits Noted Gross Range of Motion Lower Extremity ROM Assessment Within Functional Limits Strength Lower Extremity Strength Assessment Within Functional Limits Other Assessments Other Other Assessments Oculomotor screen normal for eye ROM, spontaneous nystagmus and tracking. Attempted to check orthostatics but severe dizziness supine to sitting and nystagmus noted and transitioned to BPPV assessment. BP and HR LUE in supine: 139/62, 67 M6 PT-IP Treatment Start: 09/21/22 10:55 Freq: NEEDED Status: Active Protocol: Document 09/23/22 08:13 MB (Rec: 09/23/22 09:31 MB [id number]) Physical Therapy Treatment Other Treatments Other Treatment Performed Roll test, [place]-Hallpike and modified Cheryl, pt and caregiver education M7 PT-IP Assessment and Plan Start: 09/21/22 10:55 Freq: NEEDED Status: Active Protocol: Document 09/23/22 08:13 MB (Rec: 09/23/22 09:31 MB [id number]) PT Summary Assessment and Plan Potential Rehabilitation Potential Good Status of Condition at Evaluation Stable Summary Impairments Balance,Bed Mobility,Transfers ,Gait,Activity Tolerance Progress Towards Goals Progressing Toward Goals Assessment Summary Roll test reveals very mild torsional nystagmus with left rolling and [place]pike reveals rapid upbeat torsional nystagmus on the right. Performed modified Cheryl for right posterior canal BPPV with +2 assistance and then rechecked and nystagmus and dizziness cleared and moved pt through maneuver sequence again to sit up. Today, pt reports that she had high velocity manipulation by chiropractor the day before her dizziness got bad. She states she did have some dizziness before that treatment. PT encourages pt and that while the moving of her head for manipulation could have moved the [place] more, she also could have had positional vertigo before the treatment. Extensive education on BPPV, increasing upright posture today, gentle cervical movements and staying hydrated . Defer to MD as far as any hydration/sodium/electrolyte precautions given pt states she has some BP/cardiac issues , history of pacemaker. Recommend outpatient vestibular PT consult to recheck BPPV to make sure it is resolved, to check orthostatics, balance and any cervicogenic components to symptoms. Goals Bed Mobility Goal Independent Transfer Goal Independent Gait Goal Independent Gait Distance 100 Other Goals Pt will ascend and descend 3 steps with rail and no more than superv assistance to allow safe home entry. Days to Meet Goals 3 Frequency of Treatment Frequency Of Treatment Twice a Day Treatment Plan Physical Therapy Treatment Plan Bed Mobility Training,Transfer Training,Gait Training, Balance Retraining,Discharge Planning,Neuromuscular Re-ed Discharge Recommendations PT Discharge Recommendations Home with Assistance, Outpatient PT Transportation Needs at Discharge Private Vehicle
[2022-09-23] MEDS: MAGNESIUM OXIDE 400 MG TABLET PO (09:42)
[2022-09-23] MEDS: LACTOBACILLUS ACIDOPHILUS TABLET 2 EACH PO (09:42)
[2022-09-23] MEDS: SODIUM CHLORIDE 0.9% FLUSH 10 ML IV (09:42)
--- NOTE | 2022-09-23 10:23 | PC.NURSE ---
Discharge: Pt A&Ox4, up in chair for breakfast. Pt aware of plan for discharge, agreeable to plan of outpt physical therapy and new medication. IV discontinued, telemetry removed. Pt educated provided, paperwork signed. F/u appt made and information provided to pt. Pt wheeled via WC to private vehicle by this RN and spouse at approximately 1015.
== END 2022-09-23 10:15 | disposition home health service (06) ==
LOC: ED 12:29 → AC 13:42
PROVIDERS: Admitting Provider Family Medicine; Emergency Provider Emergency Medicine; PCP Family Medicine; Referring Provider Emergency Medicine; Visit Provider Family Medicine
DX: R42 Dizziness and giddiness (principal); R53.1 Weakness; R55 Syncope and collapse; R29.700 NIHSS score 0; Z95.0 Presence of cardiac pacemaker; Z86.73 Personal history of transient ischemic attack (TIA), and cerebral infarction without residual deficits
CPT/HCPCS: 36415; 70496; 70498; 71045; 72100; 80053; 81003; 82550; 83690; 83735; 84484; 85025; 85610; 85730; 93005; 93306; 95992; 96361; 96374; 96376; 97162; 97530; 97535; 99285; G0378; J1650; J3360; Q9967

== ENCOUNTER 2022-10-07 13:45 | Outpatient (RCR) | payer OTHER, SELFPAY ==
[2022-09-20 14:52] VITALS: BMI 27.4
--- NOTE | 2022-09-26 16:33 | PT.OIE ---
Current Diagnoses Benign paroxysmal vertigo, right ear (09/26/22) Unsteadiness on feet (09/26/22) Past Medical History (Last Reviewed 09/20/22 @ 19:31 by Ken Gandhi MD) CVA (cerebral vascular accident) Neuroendocrine neoplasm of lung TIA (transient ischemic attack) Weakness generalized Past Surgical History (Last Reviewed 09/20/22 @ 19:31 by Ken Gandhi MD) History of cholecystectomy Visit Care Team Role Provider Type Krishan Patterson MD Attending Provider Physician Family Provider Primary Care Provider Referring Provider Specialty: Family Practice Address: [facility] [place], [address] Email: [email or web address] Physical Therapy Initial Evaluation PT-OP-A Visit Information Start: 09/26/22 14:16 Freq: Status: Active Protocol: Document 09/26/22 15:32 MB (Rec: 09/26/22 16:33 MB [id number]) Out-Patient Physical Therapy Visit Information Visit Information Visit Type Initial Evaluation Visit Start Time 15:32 Visit Stop Time 16:10 Total Visit Minutes 42 Visit Number 1 Number of TRAFFIC SIGNAL REPAIRER Visits 0 Evaluation Information Evaluation Date 09/26/22 Precautions Precautions Fall risk PT-OP-B Current Condition Start: 09/26/22 14:16 Freq: Status: Active Protocol: Document 09/26/22 15:32 MB (Rec: 09/26/22 16:33 MB [id number]) Current Condition History of Current Condition Onset Date August 20, 2022 Current Complaints Some mild dizziness when getting up yesterday a.m. No dizziness this a.m. History of Current Condition Pt reports that on 08/20/22, she went to pull a weed and then blacked out and fell back on her left hip. She had some dizziness after that. On September 16, she went to her chiropractor and had a high velocity manipulation to her neck. She was much dizzier after that and then went to the hospital on 09/20/22 d/t severe dizziness. Since August 20, she has had some dizziness when getting up in the morning. Pt did have some remote dizziness in the past when up. PMH includes pacemaker, possible TIA 2011 vs dehydration, recent back pain after falling in the garden 08/20/22. Pt denies numbness, tingling, change in vision, roaring and ringing in ears, recent sinus issues, performance of sit ups , pt does not know about B12 issues, no recent overhead lifting, no HAs or jaw pain. Pt denies falls. Prior Treatments and Tests Dxs negative in the hospital Treatment Goals Patient/Caregiver Goals To get rid of the dizziness. PT-OP-C Subjective Start: 09/26/22 14:16 Freq: Status: Active Protocol: Document 09/26/22 15:32 MB (Rec: 09/26/22 16:33 MB [id number]) OP-PT Subjective Patient Comments Patient Comments See above Patient Reported Progress Improving Patient Questionnaires Dizziness Handicap Inventory DHI Score 10 DHI Functional Impairment 40 to 59% Impaired (Score 40- 59) PT-OP-G Mobility & Gait Start: 09/26/22 14:16 Freq: Status: Active Protocol: Document 09/26/22 15:32 MB (Rec: 09/26/22 16:33 MB [id number]) OP Gait Assessment Gait Gait Assistance Required: Independent Distance (Feet) 100 Able to Maintain Weight Bearing Status Yes During Gait Assistive Devices Assistive Device None Gait Deviations General Gait Pattern Within Normal Limits Comments Gait Comments Pt's gait is a little slow but it is functional and without LOB today PT-OP-H Neuro Start: 09/26/22 14:16 Freq: Status: Active Protocol: Document 09/26/22 15:32 MB (Rec: 09/26/22 16:33 MB [id number]) Sensation Evaluation Gross Sensation Gross Sensation WNL PT-OP-J Posture/Palpation/Skin Start: 09/26/22 14:16 Freq: Status: Active Protocol: Document 09/26/22 15:32 MB (Rec: 09/26/22 16:33 MB [id number]) Posture Evaluation Comments Posture Comments Pt with kyphosis, rounded shoulders and forward head posture. PT-OP-K Range of Motion Start: 09/26/22 14:16 Freq: Status: Active Protocol: Document 09/26/22 15:32 MB (Rec: 09/26/22 16:33 MB [id number]) Cervical Spine Range of Motion Cervical Spine Active Testing Position Sitting Comments Pt with limited cervical ROM, greatest with rotation and side bend and greatest right compared to left side PT-OP-O Vestibular Start: 09/26/22 14:16 Freq: Status: Active Protocol: Document 09/26/22 15:32 MB (Rec: 09/26/22 16:33 MB [id number]) Vestibular Assessment Positional Testing Fiona-Hallpike Negative Right Comments Vestibular Comments Pt without spontaneous nystagmus, her dizziness is better and so only tested right Fiona-Hallpike given positive side in the hospital and it is negative today. Moved pt through modified Cheryl to get out of Fiona- Hallpike positioning. PT-OP-T Assessment and Plan Start: 09/26/22 14:16 Freq: Status: Active Protocol: Document 09/26/22 15:32 MB (Rec: 09/26/22 16:33 MB [id number]) Physical Therapy Assessment Rehab Potential Rehabilitation Potential Good Evaluation Complexity Number of Personal Factors/Comorbidities 1-2 Number of Body Systems Impaired 3 Clinical Presentation at Evaluation Evolving Impairments Impairments Balance,Posture,Vestibular Goals 3 Impairment Lack of HEP Drywall Finisher Foreman Goal (LTG) Pt will perform cervical, postural, vestibular and balance exercises with I to improve neck movement, tracking and balance. LTG Duration 5 weeks 2 Impairment Slow iron Halfway Goal (LTG) Pt will perform TUG in no more than 9 sec to improve functional gait speed and balance. LTG Duration 5 weeks 1 Impairment DHI reflects 40% impairment Drywall Finisher Foreman Goal (LTG) Pt will present with a DHI score to reflect no more than 20% impairment to improve quality of lift and balance. LTG Duration 5 weeks Assessment Summary Assessment Pt is a 77 y/o female known to this PT after hospitalization last week d/t dizziness and concern for stroke. Dxs were negative and pt was found to have right posterior canalithiasis BPPV. She was treated and nystagmus and dizziness with Fiona-Hallpike resolved. Fiona-Hallpike is also negative today. Orthostatic assessment is also negative with BP and HR in R UE: supine 127/75, 88; standing 120/77, 107, and standing 1' 128/82, 117. Her gross UE and LE range and strength are normal. Pt with slow gait and reports of dizziness and symptoms on dizziness handicap index and she is agreeable to outpatient PT trial to improve cervical range of motion, balance, and her VOR. PT feels this will improve her symptoms and overall quality of life and balance. Physical Therapy Plan Frequency and Duration Frequency of Treatment 6 Duration of treatment (weeks) 5 Plan of Care Start Date 09/26/22 Plan of Care End Date 10/31/22
--- NOTE | 2022-09-26 16:33 | PT.OPPOC ---
Physical, Occupational & Speech Therapy At [facility] Current Diagnoses Benign paroxysmal vertigo, right ear (09/26/22) Unsteadiness on feet (09/26/22) Visit Care Team Role Provider Type Krishan Patterson MD Attending Provider Physician Family Provider Primary Care Provider Referring Provider Specialty: [facility] Address: [facility] [place], [facility] Email: [email or web address] Plan Of Care PT-OP-T Assessment and Plan Start: 09/26/22 14:16 Freq: Status: Active Protocol: Document 09/26/22 15:32 MB (Rec: 09/26/22 16:33 MB [id number]) Physical Therapy Assessment Rehab Potential Rehabilitation Potential Good Evaluation Complexity Number of Personal Factors/Comorbidities 1-2 Number of Body Systems Impaired 3 Clinical Presentation at Evaluation Evolving Impairments Impairments Balance,Posture,Vestibular Goals 3 Impairment Lack of HEP Brass Burnisher Goal (LTG) Pt will perform cervical, postural, vestibular and balance exercises with I to improve neck movement, tracking and balance. LTG Duration 5 weeks 2 Impairment Slow iron Brass Burnisher Goal (LTG) Pt will perform TUG in no more than 9 sec to improve functional gait speed and balance. LTG Duration 5 weeks 1 Impairment DHI reflects 40% impairment Brass Burnisher Goal (LTG) Pt will present with a DHI score to reflect no more than 20% impairment to improve quality of lift and balance. LTG Duration 5 weeks Assessment Summary Assessment Pt is a 77 y/o female known to this PT after hospitalization last week d/t dizziness and concern for stroke. Dxs were negative and pt was found to have right posterior canalithiasis BPPV. She was treated and nystagmus and dizziness with Fiona-Hallpike resolved. Fiona-Hallpike is also negative today. Orthostatic assessment is also negative with BP and HR in R UE: supine 127/75, 88; standing 120/77, 107, and standing 1' 128/82, 117. Her gross UE and LE range and strength are normal. Pt with slow gait and reports of dizziness and symptoms on dizziness handicap index and she is agreeable to outpatient PT trial to improve cervical range of motion, balance, and her VOR. PT feels this will improve her symptoms and overall quality of life and balance. Physical Therapy Plan Frequency and Duration Frequency of Treatment 6 Duration of treatment (weeks) 5 Plan of Care Start Date 09/26/22 Plan of Care End Date 10/31/22 Plan of Care Dates Plan of Care Start Date 09/26/22 Plan of Care End Date 10/31/22 Electronically Signed by: Sofi Blood PT 09/26/22 0956 If you are in agreement with this Plan of Care, please return a signed and dated copy. I have reviewed this Plan of Care and certify that the skilled therapy services above are required to meet the patient?s needs. Physician Signature Date Printed Name and Credentials Clinical Instructor Signature Printed Name and Credentials
--- NOTE | 2022-09-28 16:20 | PT.OTN ---
Current Diagnoses Benign paroxysmal vertigo, right ear (09/28/22) Unsteadiness on feet (09/28/22) Physical Therapy Treatment Note PT-OP-A Visit Information Start: 09/26/22 14:16 Freq: Status: Active Protocol: Document 09/28/22 15:33 MB (Rec: 09/28/22 16:19 MB [id number]) Out-Patient Physical Therapy Visit Information Visit Information Visit Type Treatment Note Visit Start Time 15:33 Visit Stop Time 16:17 Total Visit Minutes 45 Visit Number 2 PT-OP-B Current Condition Start: 09/26/22 14:16 Freq: Status: Active Protocol: Document 09/26/22 15:32 MB (Rec: 09/26/22 16:33 MB [id number]) Current Condition History of Current Condition Onset Date August 20, 2022 Current Complaints Some mild dizziness when getting up yesterday a.m. No dizziness this a.m. History of Current Condition Pt reports that on 08/20/22, she went to pull a weed and then blacked out and fell back on her left hip. She had some dizziness after that. On September 16, she went to her chiropractor and had a high velocity manipulation to her neck. She was much dizzier after that and then went to the hospital on 09/20/22 d/t severe dizziness. Since August 20, she has had some dizziness when getting up in the morning. Pt did have some remote dizziness in the past when up. PMH includes pacemaker, possible TIA 2012 vs dehydration, recent back pain after falling in the garden 08/20/22. Pt denies numbness, tingling, change in vision, roaring and ringing in ears, recent sinus issues, performance of sit ups , pt does not know about B12 issues, no recent overhead lifting, no HAs or jaw pain. Pt denies falls. Prior Treatments and Tests Dxs negative in the hospital Treatment Goals Patient/Caregiver Goals To get rid of the dizziness. PT-OP-C Subjective Start: 09/26/22 14:16 Freq: Status: Active Protocol: Document 09/28/22 15:33 MB (Rec: 09/28/22 16:19 MB [id number]) OP-PT Subjective Patient Comments Patient Comments Pt states that she hasn't had any dizziness. She states that she went for a walk today for the first time since being out of the hospital. She states that she is sleeping well. She took her pulse yesterday and it was 75 BPM. PT-OP-G Mobility & Gait Start: 09/26/22 14:16 Freq: Status: Active Protocol: Document 09/26/22 15:32 MB (Rec: 09/26/22 16:33 MB [id number]) OP Gait Assessment Gait Gait Assistance Required: Independent Distance (Feet) 100 Able to Maintain Weight Bearing Status Yes During Gait Assistive Devices Assistive Device None Gait Deviations General Gait Pattern Within Normal Limits Comments Gait Comments Pt's gait is a little slow but it is functional and without LOB today PT-OP-H Neuro Start: 09/26/22 14:16 Freq: Status: Active Protocol: Document 09/26/22 15:32 MB (Rec: 09/26/22 16:33 MB [id number]) Sensation Evaluation Gross Sensation Gross Sensation WNL PT-OP-J Posture/Palpation/Skin Start: 09/26/22 14:16 Freq: Status: Active Protocol: Document 09/26/22 15:32 MB (Rec: 09/26/22 16:33 MB [id number]) Posture Evaluation Comments Posture Comments Pt with kyphosis, rounded shoulders and forward head posture. PT-OP-K Range of Motion Start: 09/26/22 14:16 Freq: Status: Active Protocol: Document 09/26/22 15:32 MB (Rec: 09/26/22 16:33 MB [id number]) Cervical Spine Range of Motion Cervical Spine Active Testing Position Sitting Comments Pt with limited cervical ROM, greatest with rotation and side bend and greatest right compared to left side PT-OP-O Vestibular Start: 09/26/22 14:16 Freq: Status: Active Protocol: Document 09/26/22 15:32 MB (Rec: 09/26/22 16:33 MB [id number]) Vestibular Assessment Positional Testing Fiona-Hallpike Negative Right Comments Vestibular Comments Pt without spontaneous nystagmus, her dizziness is better and so only tested right Fiona-Hallpike given positive side in the hospital and it is negative today. Moved pt through modified Cheryl to get out of Fiona- Hallpike positioning. PT-OP-Q Treatments Start: 09/26/22 14:16 Freq: Status: Active Protocol: Document 08/02/23 15:33 MB (Rec: 09/28/22 16:19 MB [id number]) Therapeutic Exercises Standing Exercises Partial to full tandem standing Standing Exercise Name Partial to full tandem standing with back to corner Comments Closer to full tandem when right foot behind d/t left ankle is limited Racquet ball massage Standing Exercise Name Levator/upper back massage with head turns Comments Cues to keep neck loose, to work into balance Neuro Re-Education Treatment Balance Activities DGI activities Comments Pt cannot change gait speed well and has no imbalance or dizziness with head turns up and down and side to side and her gait is slow. She has trouble with Tandem, backward gait and walking forward with eyes closed. May consider these for exercises in the future. Tandem exercise Comments Pt standing with back to corner and chair in front, pt uses hands to get into position. Pt cannot perform SLS well and so moved on to Tandem and partial tandem. Tandem with left foot behind is difficult and pt reaches hands out to wall frequently, so worked with partially between full partial tandem and full tandem with left foot behind, similarly challenging with right foot behind. Romberg and progression Comments Pt standing with back to corner and chair in front if needed, not used, Romberg at least 1', Romberg with EC with increased sway and no LOB, Romberg with head turns without LOB for horizontal head turns, no real challenge with vertical head turns either Vestibular Rehabilitation DVA test Comments Pt resists vertical head nods by PT with reading eye chart and has 3-4 line difference between vertical head turns and eyes stable. No change with horizontal head turns. Attempted DVA HEP reading chart from standing position and pt does a good job keeping balance but she reports some trouble managing looking at E with head turns up and down d/t glasses and so did not give this exercise to pt. PT-OP-T Assessment and Plan Start: 09/26/22 14:16 Freq: Status: Active Protocol: Document 09/28/22 15:33 MB (Rec: 09/28/22 16:19 MB [id number]) Physical Therapy Assessment Goals 3 Impairment Lack of HEP Mower Mechanic Goal (LTG) Pt will perform cervical, postural, vestibular and balance exercises with I to improve neck movement, tracking and balance. LTG Duration 5 weeks 2 Impairment Slow iron Mower Mechanic Goal (LTG) Pt will perform TUG in no more than 9 sec to improve functional gait speed and balance. LTG Duration 5 weeks 1 Impairment DHI reflects 40% impairment Mower Mechanic Goal (LTG) Pt will present with a DHI score to reflect no more than 20% impairment to improve quality of lift and balance. LTG Duration 5 weeks Assessment Summary Assessment Initiated further balance and vestibulocular exercise testing today. Pt does have VOR deficits with vertical head turns with DVA testing but could not tolerate adding to HEP d/t vision challenges with glasses. Initiated balance exercise and postural exercise for home. Con't to progress exercises and consider manual work. Physical Therapy Plan Frequency and Duration Frequency of Treatment 6 Duration of treatment (weeks) 5 Plan of Care Start Date 09/26/22 Plan of Care End Date 10/31/22 Therapeutic Interventions Therapeutic Interventions Balance Training,Canalithic Repositioning,Gait Training, Home Exercise Program,Manual Therapy,Neuromuscular Re- education,Self-Care/Home Management,Therapeutic Activities,Therapeutic Exercises,Vestibular Rehabilitation
--- NOTE | 2022-10-07 14:30 | PT.OTN ---
Current Diagnoses Benign paroxysmal vertigo, right ear (10/07/22) Unsteadiness on feet (10/07/22) Physical Therapy Treatment Note PT-OP-A Visit Information Start: 09/26/22 14:16 Freq: Status: Active Protocol: Document 10/07/22 13:45 MB (Rec: 10/07/22 14:30 MB [id number]) Out-Patient Physical Therapy Visit Information Visit Information Visit Type Treatment Note Visit Start Time 13:45 Visit Stop Time 14:30 Total Visit Minutes 45 Visit Number 3 PT-OP-B Current Condition Start: 09/26/22 14:16 Freq: Status: Active Protocol: Document 09/26/22 15:32 MB (Rec: 09/26/22 16:33 MB [id number]) Current Condition History of Current Condition Onset Date August 20, 2022 Current Complaints Some mild dizziness when getting up yesterday a.m. No dizziness this a.m. History of Current Condition Pt reports that on 08/20/22, she went to pull a weed and then blacked out and fell back on her left hip. She had some dizziness after that. On September 16, she went to her chiropractor and had a high velocity manipulation to her neck. She was much dizzier after that and then went to the hospital on 09/20/22 d/t severe dizziness. Since August 20, she has had some dizziness when getting up in the morning. Pt did have some remote dizziness in the past when up. PMH includes pacemaker, possible TIA 2012 vs dehydration, recent back pain after falling in the garden 08/20/22. Pt denies numbness, tingling, change in vision, roaring and ringing in ears, recent sinus issues, performance of sit ups , pt does not know about B12 issues, no recent overhead lifting, no HAs or jaw pain. Pt denies falls. Prior Treatments and Tests Dxs negative in the hospital Treatment Goals Patient/Caregiver Goals To get rid of the dizziness. PT-OP-C Subjective Start: 09/26/22 14:16 Freq: Status: Active Protocol: Document 10/07/22 13:45 MB (Rec: 10/07/22 14:30 MB [id number]) OP-PT Subjective Patient Comments Patient Comments Pt is feeling better. She feels like today can be her last day of therapy. Pt states that she has been out walking for exercise. She is not having any dizziness. PT-OP-G Mobility & Gait Start: 09/26/22 14:16 Freq: Status: Active Protocol: Document 09/26/22 15:32 MB (Rec: 09/26/22 16:33 MB [id number]) OP Gait Assessment Gait Gait Assistance Required: Independent Distance (Feet) 100 Able to Maintain Weight Bearing Status Yes During Gait Assistive Devices Assistive Device None Gait Deviations General Gait Pattern Within Normal Limits Comments Gait Comments Pt's gait is a little slow but it is functional and without LOB today PT-OP-H Neuro Start: 09/26/22 14:16 Freq: Status: Active Protocol: Document 09/26/22 15:32 MB (Rec: 09/26/22 16:33 MB [id number]) Sensation Evaluation Gross Sensation Gross Sensation WNL PT-OP-J Posture/Palpation/Skin Start: 09/26/22 14:16 Freq: Status: Active Protocol: Document 09/26/22 15:32 MB (Rec: 09/26/22 16:33 MB [id number]) Posture Evaluation Comments Posture Comments Pt with kyphosis, rounded shoulders and forward head posture. PT-OP-K Range of Motion Start: 09/26/22 14:16 Freq: Status: Active Protocol: Document 09/26/22 15:32 MB (Rec: 09/26/22 16:33 MB [id number]) Cervical Spine Range of Motion Cervical Spine Active Testing Position Sitting Comments Pt with limited cervical ROM, greatest with rotation and side bend and greatest right compared to left side PT-OP-O Vestibular Start: 09/26/22 14:16 Freq: Status: Active Protocol: Document 09/26/22 15:32 MB (Rec: 09/26/22 16:33 MB [id number]) Vestibular Assessment Positional Testing Angwin-Hallpike Negative Right Comments Vestibular Comments Pt without spontaneous nystagmus, her dizziness is better and so only tested right Angwin-Hallpike given positive side in the hospital and it is negative today. Moved pt through modified Cheryl to get out of Fiona- Hallpike positioning. PT-OP-Q Treatments Start: 09/26/22 14:16 Freq: Status: Active Protocol: Document 10/07/22 13:45 MB (Rec: 10/07/22 14:30 MB [id number]) Therapeutic Activity Therapeutic Activity TUG and goal review Comments TUG in less than 9 sec today and reviewed DHI to determine functional gains/impairments for d/c Manual Therapy Treatment Soft Tissue Mobilization Upper traps, cervical paraspinals, SCM Comments Pt sitting and PT providing myofascial TP pressure and pt performing active movements to improve muscle movement, cervical and scapular movements in coordination with muscle work. PT also works on middle scalene and left infraspinatus and left middle scalene, levator scapula, and upper traps have more tension than the right PT-OP-T Assessment and Plan Start: 09/26/22 14:16 Freq: Status: Active Protocol: Document 10/07/22 13:45 MB (Rec: 10/07/22 14:30 MB [id number]) Physical Therapy Assessment Goals 3 Impairment Lack of HEP Explosive Operator Bomb Goal (LTG) Pt will perform cervical, postural, vestibular and balance exercises with I to improve neck movement, tracking and balance. 10/07/22: Pt has balance and cervical exercises and is I with them LTG Duration Goal met 2 Impairment Slow iron Explosive Operator Bomb Goal (LTG) Pt will perform TUG in no more than 9 sec to improve functional gait speed and balance. 10/07/22 TUG in less than 9 sec today LTG Duration Goal met 1 Impairment DHI reflects 40% impairment Explosive Operator Bomb Goal (LTG) Pt will present with a DHI score to reflect no more than 20% impairment to improve quality of lift and balance. : DHI score reflects 0% impairment LTG Duration Goal met Assessment Summary Assessment Pt has met all goals and is ready to d/c PT. She has no more dizziness.
== END 2022-10-14 12:21 | disposition home or self-care (01) ==
LOC: PHYS 13:45
PROVIDERS: Family Provider Family Medicine; PCP Family Medicine; Referring Provider Family Medicine; Visit Provider Family Medicine
DX: H81.11 Benign paroxysmal vertigo, right ear (principal); R26.81 Unsteadiness on feet
CPT/HCPCS: 97110; 97112; 97140; 97162; 97530

== ENCOUNTER → 2022-11-10 08:32 | Outpatient (CLI) | payer OTHER, SELFPAY ==
[2022-09-20 14:52] VITALS: BMI 27.4
--- NOTE | 2022-11-10 08:34 | DI.CT.S_ITS ---
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 1 mm lung window, 5 mm thick coronal and sagittal and 7 mm axial MIP reformats were then acquired. For radiation dose reduction, the following was used: automated exposure control, adjustment of mA and/or kV according to patient size. COMPARISON: [facility], NE, NE PET CT FUSION SKULL 2 THIGH, 03/25/2020, 9:26. [facility], CT, CT CHEST WO CON, 04/12/2021, 8:37. [facility], CT, CT CHEST WO CON, 11/09/2021, 10:18. [facility], CT, CT CHEST WO CON, 05/09/2022, 9:05. FINDINGS: Image quality: Excellent. Lungs and pleura: Right upper lobe lobectomy. There are multiple small lung nodules bilaterally, unchanged in size. Reference nodules are listed in the following: Nodule 1: 8 mm; right lower lobe; series 3, image 216. Nodule 2: 4 mm; right lower lobe; series 3, image 158. Nodule 3: 4 mm; right middle lobe; series 3, image 136. Nodule 4: 6 mm; left upper lobe; series 3, image 131. Nodule 5: 5 mm; left lower lobe; series 3, image 236. No acute air space opacities. No pleural effusions or pneumothorax. Central and peripheral airways are patent and normal in caliber. Mediastinum: Heart size is normal. No pericardial effusion. There is a cardiac pacemaker. No mediastinal adenopathy by size criteria. Thoracic aorta and central pulmonary arteries are normal in size. Esophagus is normal in caliber. Small hiatal hernia. There is thickening in the distal esophagus near the gastroesophageal junction. Bones and chest wall: No suspicious bony lesions. No vertebral body compression fractures. No axillary or supraclavicular adenopathy by size criteria. Thyroid gland is normal . Abdomen: Visualized upper abdominal solid organs and bowel loops appear normal in the absence of contrast. Cholecystectomy. IMPRESSION: 1. Bilateral lung nodules are stable. 2. Postsurgical changes with right upper lobectomy. 3. Thickening of the distal esophagus at the gastroesophageal junction. Consider esophagram or EGD for follow-up if clinically indicated. Dictated by: Av Benavides M.D. on 11/10/2022 at 9:11 Approved by: Av Benavides M.D. on 11/10/2022 at 9:23
--- OUTSIDE RECORDS SUMMARY | 2023-01-27 14:36 | XMS_ITS | Referral Summary ---
Author Name Unknown Organization [facility] Address [address] [place] [address] Care Team Providers Care Manager Of Digital Name Role Phone Maryam Motta MD Primary Care Provider Reason for Referral * MRI/CAT/PET Scan (Routine) - Pending Review Specialty Diagnoses / Procedures Referred By Jace akins Referred To Contact Radiology Diagnoses Neuroendocrine neoplasm of lung Procedures CT CHEST WITHOUT CONTRAST Naila Medeiros MD [address] [address] [place] [address] [facility] [address] [place] [address] Referral ID Status Reason Start Date Expiration Date Visits Requested Visits Authorized [id number] Pending Review Specialty Services Required 3 12/14/2023 1 1 * Surgical - Authorized Specialty Diagnoses / Procedures Referred By Jace akins Referred To Contact General Surgery Diagnoses Thickening of esophagus Naila Medeiros MD [address] [place] [address] Rick Tenorio MD [address] [place] [address] Referral ID Status Reason Start Date Expiration Date Visits Requested Visits Authorized [id number] Authorized Specialty Services Required 3 12/20/2023 6 6 Reason for Visit * Reason Comments Follow-up Thickening of esopha garry * Evaluate and Treat (Routine) - Authorized Specialty Diagnoses / Procedures Referred By Contreena t Referred To Contact Oncology Diagnoses Visit, f/u labs [place]) Procedures NEW PATIENT Naila Medeiros MD [address] [place] [address] Naila Medeiros MD [address] [place] [phone] Referral ID Status Reason Start Date Expiration Date V isits Requested Visits Authorized [id number] Authorized 10/11/2022 10/11/2023 999 [id number] Encounter Details Date Type Department Care Team Description 12/19/2022 2:20 PM PDT Office Visit [facility] Oncology [address], [facility] [address] [place] [address] Naila Medeiros MD [address] [place] [address] [address] [place] [address] Thickening of esophagus; Neuroendocrine neoplasm of lung Allergies Active Allergy Reactions Criticality Noted Date Comments Gabapentin Other (see comments) 11/23/2022 documented as of this encounter (statuses as of 12/23/2022) Medications Medication Sig Dispensed Refills Start Date End Date Status alendronate (FOSAMAX) 70 mg tablet Take 1 tablet (70 mg total) by mouth once a week 0 04/03/2020 Active ascorbic acid, vitamin C, (VITAMIN C) 1,000 mg tablet Take 1 tablet (1,000 mg total) by mouth daily 0 Active calcium carbonate/vitamin D3 (CALTRATE 600 PLUS D ORAL) Take 1,200 mg by mouth daily 0 Active MAGNESIUM ORAL Take 400 mg by mouth daily 0 Active omega-3 fatty acids/fish oil (FISH OIL OMEGA 3-6-9 ORAL) Take 1,200 mg by mouth daily 0 Active cholecalciferol, vitamin D3, 125 mcg (5,000 unit) tablet tablet Take 1,000 Units by mouth 3 (three) times a week 0 Active tyrosine 500 mg capsule Take by mouth daily 0 Active prasterone, DHEA, (DHEA ORAL) Take 12.5 mg by mouth daily 0 Active multivitamin (THERAGRAN) tablet tablet Take 1 tablet by mouth daily 0 Active meclizine (ANTIVERT) 12.5 mg tablet Take 2 tablets (25 mg total) by mouth 0 09/23/2022 Active saccharomyces boulardii (FLORASTOR) 250 mg capsule Take 1 capsule (250 mg total) by mouth daily 0 Active documented as of this encounter (statuses as of 12/23/2022) Active Problems Problem Noted Date Diagnosed Date Granulomatous lung disease 11/20/2020 Last Assessment [...] this started when she was living in [place] due to secondhand smoke. She cannot tolerate [...] pursue PFT testing and we will call [facility] to see if they have received the request and/or completed PFTs. Patient in agreement with the plan. It is otherwise not affecting her in terms of shortness of breath though appears to be bothersome. 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 Postoperatively, patient is progressing well, albeit slower than she would like and she is working with physical therapy and slowly increasing her exercise tolerance. Overall, she is doing well. We will refer her to oncology for future follow-up/surveillance. documented as of this encounter (statuses as of 12/23/2022) Immunizations Name Administration Dates Next Due FLU High Dose 65+ (Fluzone) 10/22/2019,0 11/12/2018,11/15/2017,12/02,11/09/2015 Influenza, Quadrivalent 11/05/2020,11/05/2014 Pfizer Covid Vaccine, Bivalent (12+) 11/09/2021 Qfvaot-DKMJ-EhZ-2 Trs-sucr Vaccine 10/05/2021, Sqfgit-FEMS-OmS-2 Vaccine 05/21/2020,04/30/2020 Pneumococcal Conjugate PCV13 (Oinfcou55) 06/04/2015 Pneumococcal Polysaccharide PPV23 (Wvishyvsw61) 08/19/2016 Recombinant Zoster (Shingrix) 03/25/2019, 019 Tdap (Boostrix,Adacel) 02/23/2010 documented as of this encounter Social History Tobacco Use Types Packs/Day Years Used Date Smoking Tobacco: Former Cigarettes 1 3 Smokeless Tobacco: Never Comments:23 yr passive smoke exposure in addition to Alcohol Use Standard Drinks/Week Comments Never 0 (1 standard drink = 0.6 oz pur e alcohol) AUDIT-C Answer Date Recorded Q1: How often do you have a drink containing alc ohol? Never 09/24/2020 Average Number of Drinks Not on file Frequency of Binge Drinking Not on file Sex and Gender Information Value Date Recorded Sex Assigned at Not on file Gender Identity Not on file Sexual Orientation Not on file Job Start Date Occupation Industry Not on file Not on file Not on file documented as of this encounter Last Filed Vital Signs Vital Sign Reading Time Taken Comments Blood Pressure 135/73 12/19/2022 2:17 PM PDT Pulse 96 12/19/2022 2:17 PM PDT Temperature 36.6 ??C (97.9 ??F) 12/19/2022 2:17 PM PD T Respiratory Rate 16 12/19/2022 2:17 PM PDT Oxygen Saturation 97% 12/19/2022 2:17 PM PDT Inhaled Oxygen Concentration - - Weight 80.7 kg (178 lb) 12/19/2022 2:17 PM PDT Height 167.6 cm (5' 5.98) 12/19/2022 2:17 PM PD T Body Mass Index 28.74 12/19/2022 2:17 PM PDT documented in this encounter Progress Notes * Naila Medeiros MD - 12/19/2022 2:20 PM PDT Hematology and Oncology Outpatient Visit Report Name: Nathan Cervantes : 1945 Gender: female PCP: Maryam Motta MD DOS: 12/19/2022 Identification and Reason for the Visit 77 y.o. 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 History of Present Illness: Ms. Nathan Cervantes is a 77 y.o. old female. I have been following Nathan at [facility] since 12/31/2020. Nathan is now transferring her care to [facility]. Early in 2003, Nathan developed cough, cropping up at any time even at night. She herself and her do not smoke at all. At that time she was living in [place]. In 2008, patient moved to [place], [place]. On 11/15/2017, Nathan underwent CT chest that showed multiple bilateral lung nodules. Largest nodule in the right upper lobe measured 1 cm in diameter. Since then, patient has had multiple CT follow-up scans and it showed continued progressive enlarging right upper lobe pulmonary nodule. On 03/25/2020, PET scan ordered by Dr. Maryam Motta showed 8 mm nodule in the right upper lobe with low FDG uptake suggesting benign etiology. Multiple smaller pulmonary nodules were demonstrated with low FDG uptake most likely benign. The patient was subsequently referred to Dr. Alise Bauer [facility] who saw the patient initially on 05/07/2020. On 08/19/2020, patient underwent CT chest without contrast showed the anterior right upper lobe nodule increased further to 8 mm. Therefore patient was referred to thoracic surgeon Porfirio Grimes. On 11/09/2020, Dr. Christian performed robotic assisted thoracic surgery with right upper lobectomy andmediastinal lymphadenectomy. The final surgical pathology showed neuroendocrine tumor (carcinoid), low grade (well-differentiated), unifocal, 1.3 x 0.9 x 0.9 cm, less than 1/2 per cubic mL mitotic rate, 2-3% Ki 67, lymphovascular invasion not identified, perineural invasion not identified, all margins negative, 5 lymph nodes from station 9, 7, 11R, and 10R were negative for metastatic carcinoid or malignancy. AJCC 8th, ed. pT1b, pN0. The patient experienced ???passing out on the beach?? , and she was found to have bradycardia. Therefore in May 2021, patient underwent pacemaker placement. On 05/09/2021, patient underwent surveillance CT chest without contrast that showed multiple subcentimeter pulmonary nodules that were present bilaterally, unchanged in size. No findings to suggest garrett or distant metastasis. Interim Events 12/19/2022 CT chest without contrast dated 11/10/2022 Bilateral lung nodules are stable. Postsurgical changes with right upper lobectomy. Thickening of the distal esophagus at the gastroesophageal junction. Consider esophagram or EGD forfollow-up if clinically indicated. Since her previous visit, patient said that overall, she has been doing quite well. She reports good appetite. Her weight has remained stable. She reports no worsening shortness of breath or chest pain. No cough problems. She denies any abdominal pain, diarrhea or constipation. Review of Systems Constitutional: Negative. HENT: Negative. Eyes: Negative. Respiratory: Negative. Cardiovascular: Negative. Gastrointestinal: Negative. Endocrine: Negative. Genitourinary: Negative. Musculoskeletal: Negative. Skin: Negative. Allergic/Immunologic: Negative. Neurological: Negative. Hematological: Negative. Psychiatric/Behavioral: Negative. Allergies Allergies Allergen Reactions Gabapentin Other (see comments) Current Medication List Sig alendronate (FOSAMAX) 70 mg tablet Take 1 tablet (70 mg total) by mouth once a week ascorbic acid, vitamin C, (VITAMIN C) 1,000 mg tablet Take 1 tablet (1,000 mg total) by mouth daily calcium carbonate/vitamin D3 (CALTRATE 600 PLUS D ORAL) Take 1,200 mg by mouth daily cholecalciferol, vitamin D3, 125 mcg (5,000 unit) tablet tablet Take 1,000 Units by mouth 3 (three)times a week MAGNESIUM ORAL Take 400 mg by mouth daily multivitamin (THERAGRAN) tablet tablet Take 1 tablet by mouth daily omega-3 fatty acids/fish oil (FISH OIL OMEGA 3-6-9 ORAL) Take 1,200 mg by mouth daily prasterone, DHEA, (DHEA ORAL) Take 12.5 mg by mouth daily tyrosine 500 mg capsule Take by mouth daily meclizine (ANTIVERT) 12.5 mg tablet Take 2 tablets (25 mg total) by mouth saccharomyces boulardii (FLORASTOR) 250 mg capsule Take 1 capsule (250 mg total) by mouth daily Past Medical History: Diagnosis Date Chronic pain disorder Diverticulosis GERD (gastroesophageal reflux disease) Hyperlipidemia, type IIb Lung cancer ([facility]-H[facility]) 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 Wears glasses Past Surgical History: Procedure Laterality Date ANKLE FUSION Left CHOLECYSTECTOMY FIBULA FRACTURE SURGERY Left MS BRONCHOSCOPY,BIOPSY N/A 10/14/2020 Procedure: FLEXIBLE OR RIGID BRONCHOSCOPY WITH ENDOBRONCHIAL BIOPSY USING FLUOROSCOPIC GUIDANCE; Surgeon: Porfirio Christian MD PhD; Location: [facility] GI; Service: Thoracic MS BRONCHOSCOPY,COMPUTER ASSIST/IMAGE-GUIDED NAVIGATION N/A 10/14/2020 Procedure: FLEXIBLE AND NAVIGATIONAL BRONCHOSCOPY WITH BIOPSY; Surgeon: Porfirio Christian MD PhD; Location: [facility] GI; Service: Thoracic MS BRONCHOSCOPY,TRANSBRON ASPIR BX N/A 10/14/2020 Procedure: FLEXIBLE OR RIGID BRONCHOSCOPY WITH TRANSBRONCHIAL NEEDLE ASPIRATION BIOPSY OF TRACHEA USING FLUOROSCOPIC GUIDANCE; Surgeon: Porfirio Christian MD PhD; Location: [facility] GI; Service: Thoracic MS THORACOSCOPY SURG LOBECTOMY Right 11/09/2020 Procedure: ROBOT ASSISTED RIGHT THORACIC SURGERY WITH UPPER LOBECTOMY, MEDIASTINAL LYMPHADENECCTOMY; Surgeon: Porfirio Christian MD PhD; Location: [facility] OR; Service: Thoracic TONSILLECTOMY VAGINAL DELIVERY Family History Problem Relation Age of Onset Diabetes Mother Colon cancer Maternal Grandmother Diabetes Maternal Grandfather Social History She reports that she has quit smoking. Her smoking use included cigarettes. She has a 3.00 pack-year smoking history. She has never used smokeless tobacco. She reports current drug use. Drug: Marijuana. She reports that she does not drink alcohol. Vitals: 12/19/22 1417 BP: 135/73 Pulse: 96 Resp: 16 Temp: 36.6 ??C (97.9 ??F) SpO2: 97% Body mass index is 28.74 kg/m??. Physical Exam Vitals and nursing note reviewed. Constitutional: General: She is awake. She is not in acute distress. Appearance: She is well-developed and well-groomed. HENT: Head: Normocephalic and atraumatic. Right Ear: Hearing normal. Left Ear: Hearing normal. Nose: Nose normal. Eyes: General: Vision grossly intact. Gaze aligned appropriately. No scleral icterus. Extraocular Movements: Extraocular movements intact. Conjunctiva/sclera: Conjunctivae normal. Pupils: Pupils are equal, round, and reactive to light. Neck: Thyroid: No thyroid mass or thyromegaly. Cardiovascular: Rate and Rhythm: Normal rate and regular rhythm. Heart sounds: S1 normal and S2 normal. No murmur heard. No friction rub. No gallop. Pulmonary: Effort: Pulmonary effort is normal. Breath sounds: Normal breath sounds and air entry. No decreased breath sounds, wheezing, rhonchi orrales. Abdominal: General: There is no distension. Palpations: Abdomen is soft. There is no hepatomegaly, splenomegaly or mass. Tenderness: There is no abdominal tenderness. Musculoskeletal: General: No tenderness or deformity. Cervical back: Neck supple. Right lower leg: Normal. No edema. Left lower leg: Normal. No edema. Lymphadenopathy: Head: Right side of head: No submental or submandibular adenopathy. Left side of head: No submental or submandibular adenopathy. Cervical: No cervical adenopathy. Upper Body: Right upper body: No supraclavicular or axillary adenopathy. Left upper body: No supraclavicular or axillary adenopathy. Neurological: General: No focal deficit present. Mental Status: She is alert and oriented to person, place, and time. Sensory: Sensation is intact. Motor: Motor function is intact. Coordination: Coordination is intact. Gait: Gait is intact. Psychiatric: Attention and Perception: Attention and perception normal. Mood and Affect: Mood and affect normal. Speech: Speech normal. Behavior: Behavior normal. Behavior is cooperative. Laboratory Results: Lab on 12/19/2022 Component Date Value Sodium, Serum/Plasma 12/19/2022 140 Potassium, Serum/Plasma 12/19/2022 3.9 Chloride, Serum/Plasma 12/19/2022 105 CO2, Serum/Plasma 12/19/2022 30 Anion Gap, Serum/Plasma 12/19/2022 5 Urea Nitrogen, Serum/Otis* 12/19/2022 23.6 Creatinine, Serum/Plasma 12/19/2022 0.72 Glucose, Serum/Plasma 12/19/2022 108 (H) Calcium, Serum/Plasma 12/19/2022 9.3 AST, Serum/Plasma 12/19/2022 30 ALT, Serum/Plasma 12/19/2022 23 Alkaline Phosphatase, Se* 12/19/2022 63 Total Protein, Serum/Otis* 12/19/2022 7.5 eGFR, Serum/Plasma (CKD-* 12/19/2022 86 Albumin, Serum/Plasma 12/19/2022 4.5 Bilirubin, Total, Serum/* 12/19/2022 0.5 BUN/Creatinine Ratio, Se* 12/19/2022 32.8 (H) WBC Auto 12/19/2022 7.1 RBC 12/19/2022 4.49 Hemoglobin 12/19/2022 14.4 Hematocrit 12/19/2022 43.7 MCV 12/19/2022 97 MCH 12/19/2022 32.1 MCHC 12/19/2022 33.0 RDW 12/19/2022 12.5 Platelets 12/19/2022 254 MPV 12/19/2022 9.5 % Neutrophils 12/19/2022 54 % Lymphocytes 12/19/2022 35 % Monocytes 12/19/2022 6 % Eosinophils 12/19/2022 4 % Basophils 12/19/2022 1 Abs. Neutrophils 12/19/2022 3.9 Abs. Lymphocytes 12/19/2022 2.5 Abs. Monocytes 12/19/2022 0.5 Abs. Eosinophils 12/19/2022 0.3 Abs. Basophils 12/19/2022 0.0 Abs. 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 female with right lung RUL pT1b, pN0, cM0, low-grade (well- differentiated) neuroendocrine tumor (carcinoid) status post robotic surgical right upper lobectomy and mediastinal lymphadenectomy on 11/09/2020. Clinically, she does not have any carcinoid syndrome. She has been on active surveillance since. NCCN guideline for followup 12w-12mo post-resection: H&P and CT chest w or wo contrast as clinically indicated >12mo post-resection: every 1-2 y H&P and CT chest w or wo contrast as clinically indicated Discussion: I reviewed the CT scan from October 2022. The pulmonary nodules have remained stable. No other new findings except thickening of the distal esophagus (see below). Blood work including CBC and CMP are unremarkable. As far as the neuroendocrine tumor of the lung is concerned, I will continue imaging surveillance. Plan: Continue CT chest w/o contrast in 6 months Thickening of distal esophagus CT chest without contrast intended for surveillance of patient's neuroendocrine tumor incidentally noted thickening of the distal esophagus. Clinically, patient does not have any symptoms of dysphagia, pain, or nausea or vomiting. During her previous visit, patient was referred to gastroenterology and has been scheduled for visit in April of next year. Patient would like to get this done sooner in [facility] which I think is reasonable. I will refer the patient to Dr. Tenorio Plan: Referral to Dr. Tenorio at [facility] for EGD Follow-up Return to clinic in about 6 months. Naila Medeiros MD Hematology and Oncology 12/19/2022 This note was generated utilizing [employer] voice recognition software. I have tried to proof-read carefully, but errors may occur, including substitution of words that sound phonetically similar to theintended word as well as random substitution errors. Please take this into consideration and use clinical context when necessary. documented in this encounter Plan of Treatment Upcoming Encounters Date Type Department Care Team Description 05/17/2023 9:20 AM PDT Office Visit [facility] [place] [address] [place] [phone] Jessica Willis MD [address] [place] [address] 06/19/2023 2:00 PM PDT Office Visit [facility] Oncology [place] [address], [address] [place] [address] Naila Medeiros MD [address] [place] [address] [address] [place] [phone] Scheduled Orders Name Type Priority Associated Diagnoses Orde r Schedule CT CHEST WITHOUT CONTRAST Imaging Routine Neuroendocrine neoplasm of lung Expected: 05/20/2023, Expires: 06/19/2024 Complete blood count with diff Lab Routine Thickening of esophagus Neuroendocrine neoplasm of lung Expected: 06/20/2023, Expires: 12/20/2023 Comprehensive Metabolic Panel Lab Routine Thickening of esophagus Neuroendocrine neoplasm of lung Expected: 06/20/2023, Expires: 12/20/2023 Scheduled Referrals Name Type Priority Associated Diagnoses Order Schedule Ambulatory referral to General Surgery Outpatient Referral Routine Thickening of esophagus Ordered: 12/19/2022 documented as of this encounter Visit Diagnoses Diagnosis Thickening of esophagus Neuroendocrine neoplasm of lung documented in this encounter Advance Directives Latest Code Status on File Code Status Date Activated Date Inactivated Comments Full Code 11/09/2020 5:47 AM 11/12/2020 3:52 PM Code Status History Code Status Date Activated Date Inactivated Comments Full Code 10/14/2020 7:53 AM 10/14/2020 1:47 PM Care Teams Manager Of Digital Relationship Specialty Start Date End Date Maryam Motta MD [address] [place] [address] PCP - General Family Medicine 04/16/20 documented as of this encounter
== END ==
PROVIDERS: Family Provider Family Medicine; PCP Family Medicine; Referring Provider Internal Medicine Hematology & Oncology; Visit Provider Internal Medicine Hematology & Oncology
DX: D3A.8 Other benign neuroendocrine tumors (principal); R91.8 Other nonspecific abnormal finding of lung field; K44.9 Diaphragmatic hernia without obstruction or gangrene
CPT/HCPCS: 71250

== ENCOUNTER 2023-01-06 14:48 | Day surgery (SDC) | payer OTHER, SELFPAY ==
[2022-09-20 14:52] VITALS: BMI 27.4
--- NOTE | 2023-01-06 | PATH_ITS ---
[facility] Accession Number: [id number] No. of containers..01 Tissue . 01 Material submitted: . esophagus - ESOPHAGEAL BIOPSY . 01 Diagnosis: Esophagus, Biopsy: Squamous epithelium with no significant diagnostic alterations. Negative for increased intraepithelial eosinophils. Negative for dysplasia and malignancy. MRV 01/16/2023 1707 Local . 01 Electronically signed: . Halima Mendez MD, Pathologist NPI- [id number] . 01 Gross description: . ESOPHAGEAL BIOPSY: Received in formalin are 2 fragment(s) of stevens, soft tissue measuring 0.3 x 0.3 x 0.1 cm to 0.3 x 0.3 x 0.2 cm submitted entirely in 1 cassette(s) /RITA 01/09/[id number] Local . 01 Pathologist provided ICD-10: K22.9 . 01 CPT . 920810 Specimen Comment: A courtesy copy of this report has been sent to [phone] Performed at: 01 [facility] [address] [place] [address], [place], [place] [id number] MD Jorge Hopkins MD Phone: [phone]
[2023-01-06 15:18] VITALS: BMI 27.8
[2023-01-06 15:25] VITALS: BP 142/77; PULSE 96; RESP 18; TEMP 36.3; O2SAT 96
[2023-01-06] MEDS: LACTATED RINGERS 1,000 ML 42 ML IV (15:35)
--- NOTE | 2023-01-06 15:41 | PM.PREOP ---
Pre-operative Note Interval Note History & Physical reviewed/Exam performed by Physician: Yes Changes to H&P: No
--- NOTE | 2023-01-06 15:58 | P.OP.EGD_ITS ---
Operative Date/Time/Diagnoses Date of procedure: 01/06/23 Time of procedure: 15:59 Pre-op diagnosis: Esophageal thickening Procedure & Clinicians Study performed: Diagnostic esophagoduodenoscopy Same procedure as scheduled: Yes Indications: Incidentally noted esophageal thickening Surgeon: Rick Tenorio Procedure Notes Procedure in detail: The history and physical was performed/updated and the patient is ASA class is 2. The procedure was discussed in detail with the patient. Potential risks complications including infection, bleeding, missed diagnosis, perforation, need for surgery, and were explained. Their questions were answered and informed consent was obtained. Patient placed in left lateral decubitus position. Time out was performed. Procedural sedation was administered by Anesthesia. A bite block was placed. the scope was inserted into the mouth and advanced through the esophagus and into the stomach. The pylorus was intubated and the duodenum was examined to the 2nd portion. The scope was then withdrawn into the stomach and was re troflexed. The stomach was decompressed and scope was withdrawn slowly through the esophagus. FINDINGS -unremarkable esophagus. No masses or narrowing. Scope easily passes through the esophagus and into the stomach. Multiple biopsies of the esophagus performed with forceps -small hiatal hernia The patient tolerated the procedure well and will be discharged when they meet criteria. Specimen(s): other (Esophageal biopsy) Impression: Hiatal hernia Post-procedure Plan for aftercare: No further care is necessary Disposition: same day surgery
[2023-01-06 16:00] VITALS: BP 132/67; PULSE 84; RESP 12; TEMP 36.2; O2SAT 94
[2023-01-06 16:05] VITALS: BP 132/77; PULSE 85; RESP 14; O2SAT 95
[2023-01-06 16:10] VITALS: BP 117/68; PULSE 82; RESP 15; O2SAT 96
[2023-01-06 16:20] VITALS: BP 126/78; PULSE 74; RESP 13; O2SAT 96
== END 2023-01-06 16:40 | disposition home or self-care (01) ==
PROVIDERS: Family Provider Family Medicine; PCP Family Medicine; Referring Provider Surgery; Visit Provider Surgery
PROC: 0DJ08ZZ Inspection of Upper Intestinal Tract, Via Natural or Artificial Opening Endoscopic (ICD-10-PCS; CPT 43235; principal; 2023-01-06 14:45)
DX: R93.3 Abnormal findings on diagnostic imaging of other parts of digestive tract (principal); K44.9 Diaphragmatic hernia without obstruction or gangrene
CPT/HCPCS: 43239; J2704

== ENCOUNTER → 2023-05-03 15:09 | Outpatient (CLI) | payer OTHER, SELFPAY ==
[2022-09-20 14:52] VITALS: BMI 27.4
--- NOTE | 2023-05-03 | DI.CT.S_ITS ---
PROCEDURE: CT CHEST WO CON INDICATIONS: Other benign neuroendocrine tumors TECHNIQUE: Noncontrast 5 mm thick sections acquired from the pulmonary apices to the posterior costophrenic angles. 1 mm lung window, 5 mm thick coronal and sagittal and 7 mm axial MIP reformats were then acquired. For radiation dose reduction, the following was used: automated exposure control, adjustment of mA and/or kV according to patient size. COMPARISON: [facility], CT, CT CHEST WO CON, 11/10/2022, 8:36. FINDINGS: Image quality: Diagnostic. Lower Neck: No enlarged lymph nodes. Thyroid: 1.6 centimeter left thyroid lobe nodule (series 2, image 11). Axillae: No enlarged lymph nodes. Chest Wall: Left chest wall generator with cardiac leads. Bones: Unremarkable. Lungs and Pleura: No pneumothorax or pleural effusions. Left upper lobectomy. Volume loss in the right middle lobe is unchanged from prior. Similar solid pulmonary nodules. For instance: -Stable 3-4 millimeters solid nodule, right lower lobe (series 3, image 170). -stable 5 millimeter solid nodule, left lower lobe (series 3, image 246). -stable 8 x 5 millimeter juxtapleural nodule, right lower lobe (series 3, image 226). Heart: Heart size is normal. No pericardial effusion. Thoracic Vessels: The aorta and pulmonary arteries demonstrate normal size. Mediastinum and Irish: No enlarged lymph nodes. Esophagus: No wall thickening. Small hiatal hernia. Upper Abdomen: Punctate nonobstructing right-sided nephrolithiasis. Cholelithiasis. IMPRESSION: 1.6 centimeter left thyroid nodule. Recommend dedicated thyroid ultrasound if not performed in the past. Dictated by: Alejandro Yan M.D. on 05/03/2023 at 16:33 Approved by: Alejandro Yan M.D. on 05/03/2023 at 16:49
== END ==
PROVIDERS: Family Provider Family Medicine; PCP Family Medicine; Referring Provider Internal Medicine Hematology & Oncology; Visit Provider Internal Medicine Hematology & Oncology
DX: D3A.8 Other benign neuroendocrine tumors (principal); E04.1 Nontoxic single thyroid nodule
CPT/HCPCS: 71250

== ENCOUNTER 2023-11-30 14:42 | Emergency (ER) | payer OTHER, SELFPAY ==
[2022-09-20 14:52] VITALS: BMI 27.4
[2023-11-30] VITALS (10 sets, daily range): BP systolic 102–132; BP diastolic 57–66; PULSE 81–100; RESP 14–23; TEMP 37.1; O2SAT 94–97; BMI 28.2
--- NOTE | 2023-11-30 14:50 | DI.RAD.S_ITS ---
PROCEDURE: XR CHEST 1V INDICATIONS: chest pain TECHNIQUE: One view of the chest was acquired. COMPARISON: [facility], CR, XR CHEST 1V, 09/20/2022, 9:52. [facility], CR, XR CHEST 1V, 07/21/2022, 8:46. FINDINGS: Surgical changes and devices: Left chest wall pacemaker. Right chest wall surgical clips. Lungs and pleura: Lungs are clear. No pleural effusions or pneumothorax. Mediastinum: Mediastinal contours appear normal. Heart size is normal. Bones and chest wall: No suspicious bony lesions. Overlying soft tissues appear unremarkable. IMPRESSION: No acute cardiopulmonary abnormality is seen. Dictated by: Liam Crespo M.D. on 11/30/2023 at 16:04 Approved by: Liam Crespo M.D. on 11/30/2023 at 16:05
--- NOTE | 2023-11-30 14:50 | EKG_ITS ---
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
--- NOTE | 2023-11-30 14:57 | ED_ITS ---
HPI - Chest Pain General Chief Complaint: Chest Pain Stated Complaint: chest pain Time Seen by Provider: 11/30/23 14:57 Source: patient Mode of arrival: Ambulatory Limitations: no limitations History of Present Illness HPI narrative: Patient is a 78-year-old female history of heart block with pacemaker presents to the ED for evaluation of chest pain started spontaneously today, states that it is pleuritic in nature. States that it is worse whenever she takes a deep breath. States that she did lift some bags yesterday helping family member move but pain is worse with motion and breathing therefore decided come into the ED for further evaluation treatment. Not on any blood thinners Related Data Home Medications Medication Instructions Recorded Confirmed CA PANTOTHENATE/FOLIC ACID/VIT 1 tab PO QDAY ##0 04/21/12 01/05/23 (MULTIVITAMIN) CHOLECALCIFEROL (VITAMIN D3) 2,000 units PO DAILY #0 caps 12/08/12 01/05/23 (VITAMIN D) alendronate 70 mg tablet (Fosamax) 70 mg PO WEEKLY 12/31/20 01/06/23 magnesium 500 mg tablet 15 mg PO DAILY 12/31/20 01/05/23 Lactobacillus acidophilus 10 10,000 mmu cells PO DAILY 05/17/21 01/05/23 billion cell capsule (Probiotic) ascorbic acid (vitamin C) 1,000 mg 1,000 cap PO QAM 05/17/21 01/05/23 capsule,extended release calcium carbonate 600 mg-vitamin 1 tab PO QAM 05/17/21 01/05/23 D3 20 mcg (800 unit) chewable tablet (Caltrate 600 plus D) omega 3-ezw-mdd-fish oil 1,200 mg 1 cap PO BID 05/17/21 01/05/23 (144 mg-216 mg) capsule (Fish Oil) cholecalciferol (vitamin D3) 125 125 mcg PO 3XW 11/15/21 01/05/23 mcg (5,000 unit) tablet (Vitamin D3) prasterone (dhea)/calcium 1 tab PO QAM 11/15/21 01/05/23 phosphate dibasic 25 mg-43 mg tablet Allergies Allergy/AdvReac Type Severity Reaction Status Date / Time erythromycin base Allergy Unknown RASH Verified 01/06/23 15:13 [ERYTHROMYCIN BASE] gabapentin AdvReac Mild Dizziness Verified 01/06/23 15:35 Review of Systems Review of Systems Narrative: General: Denies fever, chills, weight loss HEENT: Denies headache, eye drainage, eye irritation, head trauma, sore throat, voice change Cardiovascular: Positive chest pain, negative palpitations, shortness of breath, tachycardia Respiratory: Denies any shortness of breath, cough, wheeze, stridor GI/: Denies any abdominal pain, nausea, vomiting, diarrhea, bright red blood per rectum, melanotic stools, urinary frequency, urinary retention, dysuria, hematuria MSK: Denies any joint pain, muscle pains, swelling Skin: Denies any rashes, lesions, discoloration Neuro: Denies any headache, lightheadedness, dizziness, fainting, weakness Psych: Denies SI/HI Patient History Medical History Neuroendocrine neoplasm of lung Weakness generalized TIA (transient ischemic attack) CVA (cerebral vascular accident) Surgical History History of cholecystectomy Family History Grandfather Diabetes mellitus Mother Diabetes mellitus Social History marital status: household members: spouse, family and children lives independently: Yes occupational status: previously employed Smoking Status: Never smoker alcohol intake: never substance use type: does not use Smoking Status: Never smoker Substance Use Type: does not use Exam Narrative Exam Narrative: General: Cooperative, comfortable, well-developed, not in acute distress HEENT: Normocephalic, atraumatic, PERRLA, normal sclera, eyelids normal, Neck: Active full range of motion, atraumatic Chest: Normal to inspection, negative crepitus, no overlying erythema ecchymosis Respiratory: Normal respiratory effort, not in acute respiratory distress, clear to auscultation bilaterally negative cough, wheeze, tachypnea, rhonchi, rales Cardiology: Regular rate rhythm negative gallop, murmur, rubs GI/: Normal to inspection, soft, nonrigid, no tenderness to palpation, exam deferred MSK: Full range of active range of motion of all 4 extremities, atraumatic Skin: No rashes lesions noted Neuro: Alert awake oriented x3, moves all 4 extremities spontaneously, cranial nerves intact, able to answer all questions appropriately follows commands appropriately Psych: Cooperative, negative suicidal or homicidal ideations Initial Vital Signs Initial Vital Signs: Vital Signs Temperature 98.7 F 11/30/23 14:45 Pulse Rate 100 H 11/30/23 14:45 Respiratory Rate 18 11/30/23 14:45 Blood Pressure 126/57 L 11/30/23 14:45 Pulse Oximetry 96 11/30/23 14:45 Oxygen Delivery Method Room Air 11/30/23 14:45 Scores HEART Score Heart Score history: Slightly Suspicious Heart Score EKG: Normal Heart Score Age: > or = 65 years old Heart Score risk factors: No known risk factors Heart Score troponin: < or = to normal limit Heart Score Total: 2 Course Orders Ordered: Discontinued Medications Aspirin (Aspirin 81 Mg Chew Tab) 324 mg PO NOW ONE Stop: 11/30/23 14:51 Last Admin: 11/30/23 15:25 Dose: 324 mg Documented By: TIFFANI Vital Signs Vital signs: Vital Signs - 8 hr 11/30/23 14:45 11/30/23 15:19 11/30/23 15:20 Temperature 98.7 F Pulse Rate 100 H 93 H Respiratory Rate 18 Blood Pressure 126/57 L 102/57 L Pulse Oximetry 96 Oxygen Delivery Method Room Air 11/30/23 15:30 11/30/23 15:30 11/30/23 16:00 Temperature Pulse Rate 88 87 Respiratory Rate 18 14 Blood Pressure 112/58 L Pulse Oximetry 97 96 Oxygen Delivery Method Room Air 11/30/23 16:00 11/30/23 16:30 11/30/23 16:30 Temperature Pulse Rate 87 Respiratory Rate 18 Blood Pressure 132/66 122/62 Pulse Oximetry 96 Oxygen Delivery Method Room Air 11/30/23 17:00 11/30/23 17:00 Temperature Pulse Rate 83 Respiratory Rate 23 Blood Pressure 107/66 Pulse Oximetry 94 Oxygen Delivery Method MDM - Chest Pain Differential Diagnosis Differential diagnosis: Likely atypical chest pain, costochondritis and chest pain Lab Data 11/30/23 15:20 11/30/23 15:20 Labs: Lab Results 11/30/23 11/30/23 Range/Units 15:20 17:30 WBC 7.9 (4.5-11.0) X10^3/uL RBC 4.21 (4.0-5.2) X10^6/uL Hgb 13.4 (12.0-16.0) g/dL Hct 39.8 (36-46) % MCV 94.4 (80-100) fL MCH 31.9 (26-34) PG MCHC 33.8 (30-36) % RDW 13.3 (11.6-14.8) % Plt Count 275 (150-400) X10^3/uL Neut % (Auto) 62.4 (50-75) % Lymph % (Auto) 25.9 (25-40) % [place] % (Auto) 8.0 (3-14) % Eos % (Auto) 3.1 (2-4) % Baso % (Auto) 0.6 (0-2) % Neut # (Auto) 4900 (5246-4902) /uL Lymph # (Auto) 2100 (4482-4259) /uL [place] # (Auto) 600 (0-900) /uL Eos # (Auto) 200 (0-450) /uL Baso # (Auto) 0 (0-100) /uL PT 11.1 (9.4-12.5) SECONDS INR 1.0 (0.9-1.3) APTT 35 (25.1-36.5) SECONDS D-Dimer 453 (<500) ng/ml Sodium 137 (137-145) mmol/L Potassium 3.8 (3.4-5.1) mmol/L Chloride 105 (98-107) mmol/L Carbon Dioxide 27 (22-32) mmol/L BUN 26 H (7-17) mg/dL Creatinine 0.74 (0.52-1.04) mg/dL Estimated GFR > 60 (>60) mL/min BUN/Creatinine Ratio 35.1 H (6-22) Glucose 171 H (80-110) mg/dL Calcium 9.2 (8.4-10.2) mg/dL Magnesium 2.2 (1.6-2.3) mg/dL Total Bilirubin 0.5 (0.2-1.3) mg/dL AST 26 (14-36) IU/L ALT 19 (<35) IU/L Alkaline Phosphatase 83 (38-126) U/L Total Creatine Kinase 107 (30-135) U/L Troponin I < 0.012 < 0.012 (0.01-0.034) ng/mL NT-Pro-B Natriuret Pep 148 (<450) pg/mL Total Protein 7.1 (6.3-8.2) g/dL Albumin 4.2 (3.5-5.0) g/dL Globulin 2.9 (1.7-4.1) g/dL Albumin/Globulin Ratio 1.4 (1.0-2.8) Lipase 92 (23-300) U/L Imaging Data Chest x-ray: Radiologist's Impression: ROCEDURE: XR CHEST 1V INDICATIONS: chest pain TECHNIQUE: One view of the chest was acquired. COMPARISON: [facility], CR, XR CHEST 1V, 09/20/2022, 9:52. [facility], CR, XR CHEST 1V, 07/21/2022, 8:46. FINDINGS: Surgical changes and devices: Left chest wall pacemaker. Right chest wall surgical clips. Lungs and pleura: Lungs are clear. No pleural effusions or pneumothorax. Mediastinum: Mediastinal contours appear normal. Heart size is normal. Bones and chest wall: No suspicious bony lesions. Overlying soft tissues appear unremarkable. IMPRESSION: No acute cardiopulmonary abnormality is seen. ECG Data Attestation: I personally reviewed and interpreted this ECG as follows: Interpretation: EKG interpreted ED physician atrially paced at 92, QTC 499 MDM Narrative Medical decision making narrative: Patient with history of heart block presents for chest pain. Started spontaneously today does state that she was physically active yesterday picking up heavy bags to help family with cleaning/moving. She states that she did feel a little bit of pain afterwards but was fine, however states that it was a little worse today therefore decided come into the ED for further evaluation treatment. She states that it is worse with motion and whenever she takes a deep breath. She has not on any blood thinners. Patient with trop negative x2 EKG nonischemic, D-dimer negative, patient with significantly improved symptoms after administration of medication here with anti-inflammatories. Patient with a heart score of 2, signs symptoms lab work and physical exam more likely costochondritis, patient was instructed to follow up with cardiology and PCP in the outpatient setting, she verbalized understanding of this and agrees to being discharged home with outpatient follow up. 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 Disease processes change and evolve, if your symptoms worsen or if you develop any new symptoms that are concerning to you please return for evaluation. Your evaluation today does not show any evidence of any life- threatening/serious illnesses requiring admission to the hospital or surgery. Please follow-up with your doctor for re-evaluation in approximately 1 day. Seek immediate medical attention for any worrisome symptoms. Prescriptions: No Action CA PANTOTHENATE/FOLIC ACID/VIT (MULTIVITAMIN) 1 tab PO QDAY Qty: 0 CHOLECALCIFEROL (VITAMIN D3) (VITAMIN D) 2,000 units PO DAILY Qty: 0 magnesium 500 mg Tablet 15 mg PO DAILY alendronate [Fosamax] 70 mg Tablet 70 mg PO WEEKLY ascorbic acid (vitamin C) 1,000 mg Capsule, Extended Release 1,000 cap PO QAM omega 9-udx-yst-fish oil [Fish Oil] 1,200 (144-216) mg Capsule 1 cap PO BID Probiotic 10 billion cell Capsule 10,000 mmu cells PO DAILY Caltrate 600 plus D 600 mg-20 mcg (800 unit) Tablet,Chewable 1 tab PO QAM prasterone (dhea)/calcium phos 25-43 mg Tablet 1 tab PO QAM Patient Comments: PT TAKES 1/2 TAB DAILY cholecalciferol (vitamin D3) [Vitamin D3] 125 mcg (5,000 unit) Tablet 125 mcg PO 3XW Referrals: Krishan Patterson MD [Primary Care Provider] - Stand Alone Forms: Patient Portal/API
[2023-11-30] MEDS: ASPIRIN 81 MG CHEW TAB 324 MG PO (15:25)
[2023-11-30 15:35] LABS: Add Manual Diff / Slide Review NO; Basophils Absolute Auto 0 /uL (0-100); Basophils Percent Auto 0.6 % (0-2); Eosinophils Absolute Auto 200 /uL (0-450); Eosinophils Percent Auto 3.1 % (2-4); Hematocrit 39.8 % (36-46); Hemoglobin 13.4 g/dL (12.0-16.0); Lymphocytes Absolute Auto 2100 /uL (1100-4500); Lymphocytes Percent Auto 25.9 % (25-40); Mean Corpuscular HGB Conc 33.8 % (30-36); Mean Corpuscular Hemoglobin 31.9 PG (26-34); Mean Corpuscular Volume 94.4 fL (80-100); Monocytes Absolute Auto 600 /uL (0-900); Neutrophils Absolute Auto 4900 /uL (1500-7000); Neutrophils Percent Auto 62.4 % (50-75); Platelet Count 275 X10^3/uL (150-400); Red Blood Cell Count 4.21 X10^6/uL (4.0-5.2); Red Cell Distribution Width 13.3 % (11.6-14.8); White Blood Cell Count 7.9 X10^3/uL (4.5-11.0)
[2023-11-30 15:42] LABS: Prothrombin Time 11.1 SECONDS (9.4-12.5)
[2023-11-30 15:45] LABS: PTT Partial Thromboplastin Tim 35 SECONDS (25.1-36.5)
[2023-11-30 15:46] LABS: Alanine Aminotransferase 19 IU/L (<35); Albumin 4.2 g/dL (3.5-5.0); Albumin Globulin Ratio 1.4 (1.0-2.8); Alkaline Phosphatase 83 U/L (38-126); Aspartate Aminotransferase 26 IU/L (14-36); BUN Creatinine Ratio 35.1 (6-22); Bilirubin Total 0.5 mg/dL (0.2-1.3); Blood Urea Nitrogen 26 mg/dL (7-17); Calcium 9.2 mg/dL (8.4-10.2); Carbon Dioxide 27 mmol/L (22-32); Chloride 105 mmol/L (98-107); Creatine Kinase 107 U/L (30-135); Estimated Glomerular Filt Rate > 60 mL/min (>60); Globulin 2.9 g/dL (1.7-4.1); Glucose 171 mg/dL (80-110); HEMOLYSIS < 15 (0-50); Lipase 92 U/L (23-300); Magnesium 2.2 mg/dL (1.6-2.3); Potassium 3.8 mmol/L (3.4-5.1); Sodium 137 mmol/L (137-145); Total Protein 7.1 g/dL (6.3-8.2)
[2023-11-30 15:52] LABS: D Dimer 453 ng/ml (<500)
[2023-11-30 15:58] LABS: NT-proBNP (BNP-Adult 18+) 148 pg/mL (<450); Troponin I < 0.012 ng/mL (0.01-0.034)
[2023-11-30 17:59] LABS: Troponin I < 0.012 ng/mL (0.01-0.034)
== END 2023-11-30 19:31 | disposition home or self-care (01) ==
PROVIDERS: Emergency Provider Student in an Organized Health Care Education/Training Program; Family Provider Family Medicine; PCP Family Medicine
DX: M94.0 Chondrocostal junction syndrome [Tietze] (principal); R00.0 Tachycardia, unspecified
CPT/HCPCS: 36415; 71045; 80053; 82550; 83690; 83735; 83880; 84484; 85025; 85379; 85610; 85730; 93005; 99284

== ENCOUNTER 2024-05-08 02:43 | Emergency (ER) | payer OTHER, SELFPAY ==
[2022-09-20 14:52] VITALS: BMI 27.4
[2024-05-08] VITALS (23 sets, daily range): BP systolic 84–146; BP diastolic 55–74; PULSE 60–98; RESP 10–20; TEMP 36.7–36.8; O2SAT 91–99; BMI 27.4
--- NOTE | 2024-05-08 02:44 | ED_ITS ---
HPI - Chest Pain <Peytoncarlos MedinaDO - Last Filed: 05/09/24 04:00> General Chief Complaint: Chest Pain Stated Complaint: HEART ATTACK Time Seen by Provider: 05/08/24 02:43 Source: patient, RN notes reviewed and old records reviewed Mode of arrival: Family Vehicle Limitations: no limitations History of Present Illness HPI narrative: 78-year-old female history of heart block with a pacemaker presents with complaint of chest pain she describes as substernal pleuritic patient states she woke up to go to the bathroom and appreciated it. Worse with inhalation. Ambulation and exertion do not seem to make it better or worse. Patient denies fevers or chills, no cold cough or congestion symptoms. No syncope or lightheadedness. Denies any diaphoresis. No nausea or vomiting. No abdominal back or flank pain. No diarrhea or constipation, no new swelling in extremities. Patient states she does have a pacemaker no history of cardiac stents. States only medication is currently alendronate. Patient states no tobacco, alcohol or recreational drugs. Has been gave her a 324 mg aspirin prior to arrival. Dr. Patterson is her primary care physician. Dr. Naik is her consumer safety inspector at [facility]. Patient denies any long distance travel. No known family history of embolic history. Related Data Home Medications Medication Instructions Recorded Confirmed CA PANTOTHENATE/FOLIC ACID/VIT 1 tab PO QDAY ##0 04/21/12 01/05/23 (MULTIVITAMIN) CHOLECALCIFEROL (VITAMIN D3) 2,000 units PO DAILY #0 caps 12/08/12 01/05/23 (VITAMIN D) alendronate 70 mg tablet (Fosamax) 70 mg PO WEEKLY 12/31/20 01/06/23 magnesium 500 mg tablet 15 mg PO DAILY 12/31/20 01/05/23 Lactobacillus acidophilus 10 10,000 mmu cells PO DAILY 05/17/21 01/05/23 billion cell capsule (Probiotic) ascorbic acid (vitamin C) 1,000 mg 1,000 cap PO QAM 05/17/21 01/05/23 capsule,extended release calcium 600 mg (as carbonate)-vit 1 tab PO QAM 05/17/21 01/05/23 D3 20 mcg (800 unit) chewable tablet (Caltrate plus D) omega 9-jfi-qqs-fish oil 1,200 mg 1 cap PO BID 05/17/21 01/05/23 (144 mg-216 mg) capsule (Fish Oil) cholecalciferol (vitamin D3) 125 125 mcg PO 3XW 11/15/21 01/05/23 mcg (5,000 unit) tablet (Vitamin D3) prasterone (dhea)/calcium 1 tab PO QAM 11/15/21 01/05/23 phosphate dibasic 25 mg-43 mg tablet Allergies Allergy/AdvReac Type Severity Reaction Status Date / Time erythromycin base Allergy Unknown RASH Verified 01/06/23 15:13 [ERYTHROMYCIN BASE] gabapentin AdvReac Mild Dizziness Verified 01/06/23 15:35 Review of Systems <Peyton Medina DO - Last Filed: 05/09/24 04:00> Review of Systems ROS Unobtainable: All systems reviewed & are unremarkable except as noted in HPI and below Patient History <Peyton Medina DO - Last Filed: 05/09/24 04:00> Medical History Neuroendocrine neoplasm of lung Weakness generalized TIA (transient ischemic attack) CVA (cerebral vascular accident) Surgical History History of cholecystectomy Family History Grandfather Diabetes mellitus Mother Diabetes mellitus Social History marital status: household members: spouse, family and children lives independently: Yes occupational status: previously employed Smoking Status: Never smoker alcohol intake: never substance use type: does not use Smoking Status: Never smoker Exam <Peyton Medina DO - Last Filed: 05/09/24 04:00> Narrative Exam Narrative: GENERAL: Alert and oriented x three, female in mild distress no diaphoresis. HEENT: Head normocephalic, atraumatic, EOMI, pupils reactive, face symmetric, moist mucous membranes NECK: Supple, full range of motion CARDIOVASCULAR: Regular rate and rhythm without murmurs, rubs or gallops. No JVD. No edema bilateral lower extremities. RESPIRATORY: Breath sounds equal bilaterally, no wheezes rales or rhonchi. ABDOMEN: Soft, nontender. Normoactive bowel sounds all 4 quadrants. No guarding or rebound, rigidity, no mass : No CVA tenderness EXTREMITIES: Normal range of motion, no clubbing or edema. Neurovascularly intact NEUROLOGICAL: Cranial nerves II through XII grossly intact. Moving all extremities SKIN: Warm, dry, no petechiae, no rashes or lesions. Initial Vital Signs Initial Vital Signs: Vital Signs Temperature 98.1 F 05/08/24 02:52 Pulse Rate 91 H 05/08/24 02:52 Respiratory Rate 20 05/08/24 02:52 Blood Pressure 146/74 H 05/08/24 02:52 Pulse Oximetry 95 05/08/24 02:52 Oxygen Delivery Method Room Air 05/08/24 02:52 <Tiffany Solorio MD - Last Filed: 05/08/24 08:32> Initial Vital Signs Initial Vital Signs: Vital Signs Temperature 98.1 F 05/08/24 02:52 Pulse Rate 91 H 05/08/24 02:52 Respiratory Rate 20 05/08/24 02:52 Blood Pressure 146/74 H 05/08/24 02:52 Pulse Oximetry 95 05/08/24 02:52 Oxygen Delivery Method Room Air 05/08/24 02:52 Course <Peyton Medina DO - Last Filed: 05/09/24 04:00> Orders Ordered: Discontinued Medications Sodium Chloride (Normal Saline 0.9%) 500 mls @ 1,000 mls/hr IV BOLUS ONE Stop: 05/08/24 03:50 Last Infusion: 05/08/24 03:58 Dose: Infused Documented By: Admin: 05/08/24 03:23 Dose: 1,000 mls/hr Documented By: GAGANDEEP Sodium Chloride (Normal Saline 0.9%) 1,000 mls @ 1,000 mls/hr IV BOLUS ONE Stop: 05/08/24 06:34 Last Infusion: 05/08/24 06:54 Dose: Infused Documented By: Admin: 05/08/24 05:36 Dose: 1,000 mls/hr Documented By: GAGANDEEP Ketorolac Tromethamine (Ketorolac 30 Mg/Ml Vial) 15 mg IV NOW ONE Stop: 05/08/24 08:21 Last Admin: 05/08/24 08:32 Dose: 15 mg Documented By: YUDELKA Morphine Sulfate (Morphine 2 Mg/Ml Inj) 2 mg IV NOW ONE Stop: 05/08/24 04:50 Last Admin: 05/08/24 04:52 Dose: 2 mg Documented By: GAGANDEEP Nitroglycerin (Nitroglycerin 0.4 Mg Sl Tab) 0.4 mg SL [id number] PRN PRN Reason: Chest Pain Last Admin: 05/08/24 03:06 Dose: 0.4 mg Documented By: GAGANDEEP Ondansetron HCl (Ondansetron 4 Mg/2 Ml Inj) 4 mg IV NOW ONE Stop: 05/08/24 05:18 Last Admin: 05/08/24 05:25 Dose: 4 mg Documented By: GAGANDEEP Vital Signs Vital signs: Vital Signs - 8 hr 05/08/24 02:52 05/08/24 02:59 05/08/24 03:00 Temperature 98.1 F Pulse Rate 91 H 90 Respiratory Rate 20 13 Blood Pressure 146/74 H 140/68 Pulse Oximetry 95 94 Oxygen Delivery Method Room Air Room Air 05/08/24 03:00 05/08/24 03:06 05/08/24 03:18 Temperature Pulse Rate 88 87 Respiratory Rate 14 Blood Pressure 140/68 101/65 Pulse Oximetry 94 Oxygen Delivery Method Room Air 05/08/24 03:18 05/08/24 03:30 05/08/24 03:30 Temperature Pulse Rate 98 H 90 Respiratory Rate 13 12 Blood Pressure 125/62 Pulse Oximetry 92 93 Oxygen Delivery Method Room Air Room Air 05/08/24 04:00 05/08/24 04:00 05/08/24 04:30 Temperature Pulse Rate 85 90 Respiratory Rate 13 13 Blood Pressure 132/62 Pulse Oximetry 95 93 Oxygen Delivery Method Room Air 05/08/24 04:30 05/08/24 05:00 05/08/24 05:00 Temperature Pulse Rate 83 Respiratory Rate 17 Blood Pressure 131/63 121/60 Pulse Oximetry 94 Oxygen Delivery Method Room Air 05/08/24 05:30 05/08/24 05:31 05/08/24 05:31 Temperature Pulse Rate 60 60 Respiratory Rate 10 L 18 Blood Pressure 84/62 L Pulse Oximetry 94 94 Oxygen Delivery Method 05/08/24 05:34 05/08/24 05:34 05/08/24 05:40 Temperature Pulse Rate 65 71 Respiratory Rate 15 12 Blood Pressure 109/57 L Pulse Oximetry 92 99 Oxygen Delivery Method 05/08/24 05:40 05/08/24 05:45 05/08/24 05:45 Temperature Pulse Rate 74 Respiratory Rate 12 Blood Pressure 117/60 123/64 Pulse Oximetry 97 Oxygen Delivery Method 05/08/24 05:50 05/08/24 05:50 05/08/24 06:10 Temperature Pulse Rate 78 75 Respiratory Rate 12 16 Blood Pressure 121/62 Pulse Oximetry 91 Oxygen Delivery Method 05/08/24 06:11 05/08/24 06:11 05/08/24 06:30 Temperature Pulse Rate 73 76 Respiratory Rate 16 12 Blood Pressure 127/58 L Pulse Oximetry 97 97 Oxygen Delivery Method 05/08/24 07:00 05/08/24 07:00 05/08/24 07:30 Temperature Pulse Rate 72 Respiratory Rate 13 Blood Pressure 127/60 121/60 Pulse Oximetry 98 Oxygen Delivery Method Room Air 05/08/24 07:30 Temperature Pulse Rate 73 Respiratory Rate 10 L Blood Pressure Pulse Oximetry 97 Oxygen Delivery Method <Tiffany Solorio MD - Last Filed: 05/08/24 08:32> Orders Ordered: Discontinued Medications Sodium Chloride (Normal Saline 0.9%) 500 mls @ 1,000 mls/hr IV BOLUS ONE Stop: 05/08/24 03:50 Last Infusion: 05/08/24 03:58 Dose: Infused Documented By: Admin: 05/08/24 03:23 Dose: 1,000 mls/hr Documented By: GAGANDEEP Sodium Chloride (Normal Saline 0.9%) 1,000 mls @ 1,000 mls/hr IV BOLUS ONE Stop: 05/08/24 06:34 Last Infusion: 05/08/24 06:54 Dose: Infused Documented By: Admin: 05/08/24 05:36 Dose: 1,000 mls/hr Documented By: GAGANDEEP Ketorolac Tromethamine (Ketorolac 30 Mg/Ml Vial) 15 mg IV NOW ONE Stop: 05/08/24 08:21 Last Admin: 05/08/24 08:32 Dose: 15 mg Documented By: YUDELKA Morphine Sulfate (Morphine 2 Mg/Ml Inj) 2 mg IV NOW ONE Stop: 05/08/24 04:50 Last Admin: 05/08/24 04:52 Dose: 2 mg Documented By: GAGANDEEP Nitroglycerin (Nitroglycerin 0.4 Mg Sl Tab) 0.4 mg SL [id number] PRN PRN Reason: Chest Pain Last Admin: 05/08/24 03:06 Dose: 0.4 mg Documented By: GAGANDEEP Ondansetron HCl (Ondansetron 4 Mg/2 Ml Inj) 4 mg IV NOW ONE Stop: 05/08/24 05:18 Last Admin: 05/08/24 05:25 Dose: 4 mg Documented By: GAGANDEEP Vital Signs Vital signs: Vital Signs - 8 hr 05/08/24 02:52 05/08/24 02:59 05/08/24 03:00 Temperature 98.1 F Pulse Rate 91 H 90 Respiratory Rate 20 13 Blood Pressure 146/74 H 140/68 Pulse Oximetry 95 94 Oxygen Delivery Method Room Air Room Air 05/08/24 03:00 05/08/24 03:06 05/08/24 03:18 Temperature Pulse Rate 88 87 Respiratory Rate 14 Blood Pressure 140/68 101/65 Pulse Oximetry 94 Oxygen Delivery Method Room Air 05/08/24 03:18 05/08/24 03:30 05/08/24 03:30 Temperature Pulse Rate 98 H 90 Respiratory Rate 13 12 Blood Pressure 125/62 Pulse Oximetry 92 93 Oxygen Delivery Method Room Air Room Air 05/08/24 04:00 05/08/24 04:00 05/08/24 04:30 Temperature Pulse Rate 85 90 Respiratory Rate 13 13 Blood Pressure 132/62 Pulse Oximetry 95 93 Oxygen Delivery Method Room Air 05/08/24 04:30 05/08/24 05:00 05/08/24 05:00 Temperature Pulse Rate 83 Respiratory Rate 17 Blood Pressure 131/63 121/60 Pulse Oximetry 94 Oxygen Delivery Method Room Air 05/08/24 05:30 05/08/24 05:31 05/08/24 05:31 Temperature Pulse Rate 60 60 Respiratory Rate 10 L 18 Blood Pressure 84/62 L Pulse Oximetry 94 94 Oxygen Delivery Method 05/08/24 05:34 05/08/24 05:34 05/08/24 05:40 Temperature Pulse Rate 65 71 Respiratory Rate 15 12 Blood Pressure 109/57 L Pulse Oximetry 92 99 Oxygen Delivery Method 05/08/24 05:40 05/08/24 05:45 05/08/24 05:45 Temperature Pulse Rate 74 Respiratory Rate 12 Blood Pressure 117/60 123/64 Pulse Oximetry 97 Oxygen Delivery Method 05/08/24 05:50 05/08/24 05:50 05/08/24 06:10 Temperature Pulse Rate 78 75 Respiratory Rate 12 16 Blood Pressure 121/62 Pulse Oximetry 91 Oxygen Delivery Method 05/08/24 06:11 05/08/24 06:11 05/08/24 06:30 Temperature Pulse Rate 73 76 Respiratory Rate 16 12 Blood Pressure 127/58 L Pulse Oximetry 97 97 Oxygen Delivery Method 05/08/24 07:00 05/08/24 07:00 05/08/24 07:30 Temperature Pulse Rate 72 Respiratory Rate 13 Blood Pressure 127/60 121/60 Pulse Oximetry 98 Oxygen Delivery Method Room Air 05/08/24 07:30 Temperature Pulse Rate 73 Respiratory Rate 10 L Blood Pressure Pulse Oximetry 97 Oxygen Delivery Method MDM - Chest Pain <Peyton Medina, - Last Filed: 05/09/24 04:00> Lab Data 05/08/24 03:00 05/08/24 03:00 Labs: Lab Results 05/08/24 05/08/24 Range/Units 03:00 05:00 WBC 11.9 H (4.5-11.0) X10^3/uL RBC 4.50 (4.0-5.2) X10^6/uL Hgb 14.4 (12.0-16.0) g/dL Hct 42.6 (36-46) % MCV 94.7 (80-100) fL MCH 31.9 (26-34) PG MCHC 33.7 (30-36) % RDW 13.6 (11.6-14.8) % Plt Count 244 (150-400) X10^3/uL Neut % (Auto) 71.3 (50-75) % Lymph % (Auto) 20.6 L (25-40) % [place] % (Auto) 4.7 (3-14) % Eos % (Auto) 2.5 (2-4) % Baso % (Auto) 0.9 (0-2) % Neut # (Auto) 8500 H (5318-0308) /uL Lymph # (Auto) 2500 (9856-6202) /uL [place] # (Auto) 600 (0-900) /uL Eos # (Auto) 300 (0-450) /uL Baso # (Auto) 100 (0-100) /uL APTT 37 H (25.1-36.5) SECONDS D-Dimer 464 (<500) ng/ml Sodium 140 (137-145) mmol/L Potassium 4.1 (3.4-5.1) mmol/L Chloride 106 (98-107) mmol/L Carbon Dioxide 26 (22-32) mmol/L BUN 22 H (7-17) mg/dL Creatinine 0.66 (0.52-1.04) mg/dL Estimated GFR > 60 (>60) mL/min BUN/Creatinine Ratio 33.3 H (6-22) Glucose 110 (80-110) mg/dL Calcium 10.0 (8.4-10.2) mg/dL Total Bilirubin 0.8 (0.2-1.3) mg/dL AST 39 H (14-36) IU/L ALT 25 (<35) IU/L Alkaline Phosphatase 58 (38-126) U/L Total Creatine Kinase 51 (30-135) U/L Troponin I < 0.012 < 0.012 (0.01-0.034) ng/mL NT-Pro-B Natriuret Pep 49 (<450) pg/mL Total Protein 7.8 (6.3-8.2) g/dL Albumin 4.6 (3.5-5.0) g/dL Globulin 3.2 (1.7-4.1) g/dL Albumin/Globulin Ratio 1.4 (1.0-2.8) Lipase 82 (23-300) U/L ECG Data Attestation: I personally reviewed and interpreted this ECG as follows: Prior ECG tracings: available for review Interpretation: Sinus rhythm right bundle-branch block rate 87 IN 200 QRS of 148 QTC of 459 patient has prior from 11/30/2023 which appears similar to today's. EKG 2. Shows sinus rhythm, right bundle-branch block rate of 85 IN 198 QRS of 152 QTC of 454, appears similar to prior earlier today. EKG 3. Sinus rhythm, right bundle-branch block rate of 72, IN 176 QRS of 150 QTC of 483. No dynamic changes appreciated. MDM Narrative Medical decision making narrative: Sinus rhythm, right bundle-branch block rate 87 appears similar to 11/30/[address] morphology. Labs white count 11.9 hemoglobin of 14 platelets of 244. Electrolytes are hit, BUN 22 creatinine 0.66 glucose is 110 calcium is 10 AST 39 ALT is 25 with a bilirubin of 0.8 lipase 82, troponin is less than 0.012 BNP is 49. dimer is negative at 464. repeat troponin is less than 0.012 Chest x-ray shows no acute change. Cardiac pacemaker present, surgical clips with the right axilla. Visualized soft tissue osseous structures are unremarkable. CTA PE protocol no pulmonary embolism, left-sided pacemaker with right atrial and right ventricular pacer leads. Trace pericardial effusion, mild aldridge chamber cardiac dilation with hypertrophy of left ventricle wall and interventricular septum. Soft tissue fullness in the right upper lobe with mild prominent lymph nodes within the mediastinum and hilum measuring 15 mm in short axis, fibrotic changes seen throughout the lungs without acute area of consolidation. Small hiatal hernia. Elevation of right hemidiaphragm due to postsurgical volume loss of right hemithorax. Patient already received aspirin 324 mg from her has been prior to arrival. She received nitro sublingual here in the department. Patient had improvement of chest pain but did drop her pressure to 100systolic. Was given 500 cc bolus. Patient given additional pain medication. Patient received morphine 2 mg had some nausea with this received Zofran shortly after got very lightheaded and a drop in her pressure. poc glucose was checked was 119 repeat EKG. 2nd troponin is pending. Patient was given 1L bolus. No new EKG changes on repeat EKG. Telemetry shows rate was still bradycardic 60 may have been paced pacer spikes were not turned on for telemetry but did have a change in morphology. Will add CTA PE protocol. Will interrogate pacemaker. Patient is not diaphoretic still has chest pain never really improved with nitro or morphine. Symptoms started about 30 mins after morphine. She does feel lightheaded. Systolic was 80, recovered to 100 in Trendelenburg fluids were started. Repeat BP is 117. Patient is feeling improved but not back to normal. Patient signed out to Dr. Solorio while working on interrogation of pacermaker <Tiffany Solorio MD - Last Filed: 05/08/24 08:32> Lab Data Labs: Lab Results 05/08/24 05/08/24 Range/Units 03:00 05:00 WBC 11.9 H (4.5-11.0) X10^3/uL RBC 4.50 (4.0-5.2) X10^6/uL Hgb 14.4 (12.0-16.0) g/dL Hct 42.6 (36-46) % MCV 94.7 (80-100) fL MCH 31.9 (26-34) PG MCHC 33.7 (30-36) % RDW 13.6 (11.6-14.8) % Plt Count 244 (150-400) X10^3/uL Neut % (Auto) 71.3 (50-75) % Lymph % (Auto) 20.6 L (25-40) % [place] % (Auto) 4.7 (3-14) % Eos % (Auto) 2.5 (2-4) % Baso % (Auto) 0.9 (0-2) % Neut # (Auto) 8500 H (4220-4113) /uL Lymph # (Auto) 2500 (2498-4604) /uL [place] # (Auto) 600 (0-900) /uL Eos # (Auto) 300 (0-450) /uL Baso # (Auto) 100 (0-100) /uL APTT 37 H (25.1-36.5) SECONDS D-Dimer 464 (<500) ng/ml Sodium 140 (137-145) mmol/L Potassium 4.1 (3.4-5.1) mmol/L Chloride 106 (98-107) mmol/L Carbon Dioxide 26 (22-32) mmol/L BUN 22 H (7-17) mg/dL Creatinine 0.66 (0.52-1.04) mg/dL Estimated GFR > 60 (>60) mL/min BUN/Creatinine Ratio 33.3 H (6-22) Glucose 110 (80-110) mg/dL Calcium 10.0 (8.4-10.2) mg/dL Total Bilirubin 0.8 (0.2-1.3) mg/dL AST 39 H (14-36) IU/L ALT 25 (<35) IU/L Alkaline Phosphatase 58 (38-126) U/L Total Creatine Kinase 51 (30-135) U/L Troponin I < 0.012 < 0.012 (0.01-0.034) ng/mL NT-Pro-B Natriuret Pep 49 (<450) pg/mL Total Protein 7.8 (6.3-8.2) g/dL Albumin 4.6 (3.5-5.0) g/dL Globulin 3.2 (1.7-4.1) g/dL Albumin/Globulin Ratio 1.4 (1.0-2.8) Lipase 82 (23-300) U/L [facility] Narrative Medical decision making narrative: Sinus rhythm, right bundle-branch block rate 87 appears similar to 11/30/[address] morphology. Labs white count 11.9 hemoglobin of 14 platelets of 244. Electrolytes are hit, BUN 22 creatinine 0.66 glucose is 110 calcium is 10 AST 39 ALT is 25 with a bilirubin of 0.8 lipase 82, troponin is less than 0.012 BNP is 49. dimer is negative at 464. repeat troponin is less than 0.012 Chest x-ray shows no acute change. Cardiac pacemaker present, surgical clips with the right axilla. Visualized soft tissue osseous structures are unremarkable. CTA PE protocol no pulmonary embolism, left-sided pacemaker with right atrial and right ventricular pacer leads. Trace pericardial effusion, mild aldridge chamber cardiac dilation with hypertrophy of left ventricle wall and interventricular septum. Soft tissue fullness in the right upper lobe with mild prominent lymph nodes within the mediastinum and hilum measuring 15 mm in short axis, fibrotic changes seen throughout the lungs without acute area of consolidation. Small hiatal hernia. Elevation of right hemidiaphragm due to postsurgical volume loss of right hemithorax. Patient already received aspirin 324 mg from her has been prior to arrival. She received nitro sublingual here in the department. Patient had improvement of chest pain but did drop her pressure to 100systolic. Was given 500 cc bolus. Patient given additional pain medication. Patient received morphine 2 mg had some nausea with this received Zofran shortly after got very lightheaded and a drop in her pressure. poc glucose was checked was 119 repeat EKG. 2nd troponin is pending. Patient was given 1L bolus. No new EKG changes on repeat EKG. Telemetry shows rate was still bradycardic 60 may have been paced pacer spikes were not turned on for telemetry but did have a change in morphology. Will add CTA PE protocol. Will interrogate pacemaker. Patient is not diaphoretic still has chest pain never really improved with nitro or morphine. Symptoms started about 30 mins after morphine. She does feel lightheaded. Systolic was 80, recovered to 100 in Trendelenburg fluids were started. Repeat BP is 117. Patient is feeling improved but not back to normal. Patient signed out to Dr. Solorio while working on interrogation of pacermaker 7am Dr Solorio care is accepted, patient is independently evaluated chart is reviewed Patient presented with chest pain that does not appear to be cardiac in nature. She had a brief episode of hypotension with chills and rhythm appreciated on telemetry. Interrogation of her pacemaker does not show any pathologic rhythms within the last [address] angiogram does not show pulmonary embolus, no obvious infection. There is a mention of soft tissue fullness in region of post surgical changes in the right upper lobe. Mildly prominent lymph nodes. Recommendation was comparison with prior studies. This is reviewed with the patient and ask her to discuss this with her primary care physician follow up Given the significant pleuritic findings of her symptoms, she was given Toradol in the emergency department that did help slightly. She has not hypoxic, hypertensive, tachycardic at time of discharge. Reviewed reasons to return to the emergency department. At this point there was no indication for hospitalization or additional imaging. Questions are answered and she will be discharged Her oncologist Dr Medeiros has been specifically message regarding the subtle finding on the CT angiogram for his further review Discharge Plan Departure Patient Disposition: Home Clinical Impression: Chest pain, pleuritic Instructions: DI for Pleurisy Activity Restrictions/Additional Instructions: Thank you for coming in today I am sorry that you are having this chest pain. At this time, I think that it is an inflammatory response causing pleuritic pain. Using 400 mg of ibuprofen (2 [id number] pills) and 1 Tylenol every 6 hours can be very helpful in controlling pain. There was no evidence of heart attack or heart attack like syndrome, no pneumonia, no blood clots in your lungs no other obvious findings of concern. There was a comment from the radiologist on the CT scan that the area of your left upper lung where the cancer was removed appears slightly full. I will message Dr. Medeiros so that he reviews this study to see if this truly is a change or if anything else needs to be followed up. I will ask him to contact you directly if he has any concerns If you find that you are getting worse or develop any new symptoms, please feel free to return to the emergency department for further evaluation. Prescriptions: No Action CA PANTOTHENATE/FOLIC ACID/VIT (MULTIVITAMIN) 1 tab PO QDAY Qty: 0 CHOLECALCIFEROL (VITAMIN D3) (VITAMIN D) 2,000 units PO DAILY Qty: 0 magnesium 500 mg Tablet 15 mg PO DAILY alendronate [Fosamax] 70 mg Tablet 70 mg PO WEEKLY ascorbic acid (vitamin C) 1,000 mg Capsule, Extended Release 1,000 cap PO QAM omega 7-jtm-npv-fish oil [Fish Oil] 1,200 (144-216) mg Capsule 1 cap PO BID Probiotic 10 billion cell Capsule 10,000 mmu cells PO DAILY Caltrate 600 plus D 600 mg-20 mcg (800 unit) Tablet,Chewable 1 tab PO QAM prasterone (dhea)/calcium phos 25-43 mg Tablet 1 tab PO QAM Patient Comments: PT TAKES 1/2 TAB DAILY cholecalciferol (vitamin D3) [Vitamin D3] 125 mcg (5,000 unit) Tablet 125 mcg PO 3XW Referrals: Krishan Patterson MD [Primary Care Provider] - Stand Alone Forms: Patient Portal/API/Survey
--- NOTE | 2024-05-08 02:49 | EKG_ITS ---
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
--- NOTE | 2024-05-08 02:51 | DI.RAD.S_ITS ---
PROCEDURE: XR CHEST 1V INDICATIONS: chest pain TECHNIQUE: One view of the chest was acquired. COMPARISON: [facility], CR, XR CHEST 1V, 11/30/2023, 14:51. FINDINGS: Surgical changes and devices: Pacemaker, right axillary clips. Lungs and pleura: Lungs are clear. No pleural effusions or pneumothorax. Mediastinum: Mediastinal contours appear normal. Heart size is normal. Bones and chest wall: No suspicious bony lesions. Overlying soft tissues appear unremarkable. IMPRESSION: No evidence acute pulmonary process. Comment: Final report is concordant with preliminary interpretation provided by [facility]. Dictated by: Kevin Jara M.D. on 05/08/2024 at 7:50 Approved by: Kevin Jara M.D. on 05/08/2024 at 7:55
[2024-05-08] MEDS: NITROGLYCERIN 0.4 MG SL TAB SL (03:06)
[2024-05-08 03:09] LABS: Add Manual Diff / Slide Review NO; Basophils Absolute Auto 100 /uL (0-100); Basophils Percent Auto 0.9 % (0-2); Eosinophils Absolute Auto 300 /uL (0-450); Eosinophils Percent Auto 2.5 % (2-4); Hematocrit 42.6 % (36-46); Hemoglobin 14.4 g/dL (12.0-16.0); Lymphocytes Absolute Auto 2500 /uL (1100-4500); Lymphocytes Percent Auto 20.6 % (25-40); Mean Corpuscular HGB Conc 33.7 % (30-36); Mean Corpuscular Hemoglobin 31.9 PG (26-34); Mean Corpuscular Volume 94.7 fL (80-100); Monocytes Absolute Auto 600 /uL (0-900); Monocytes Percent Auto 4.7 % (3-14); Neutrophils Absolute Auto 8500 /uL (1500-7000); Neutrophils Percent Auto 71.3 % (50-75); Platelet Count 244 X10^3/uL (150-400); Red Cell Distribution Width 13.6 % (11.6-14.8); White Blood Cell Count 11.9 X10^3/uL (4.5-11.0)
--- NOTE | 2024-05-08 03:17 | PC.NURSE ---
0306: pt was having 6/10 substernal CP going to her Left shoulder. After 1 dose of sublingual nitro, improved CP to 4/10. Bp did drop for 140/68 to 101/65. Dr. Medina notified. New orders for fluids.
[2024-05-08] MEDS: SODIUM CHLORIDE 0.9% 500 ML 1000 ML IV (03:23)
--- NOTE | 2024-05-08 03:26 | PC.NURSE ---
Dr. Medina orders to hold off the 2nd and third dose of sublingual nitro.
[2024-05-08 03:35] LABS: Alanine Aminotransferase 25 IU/L (<35); Albumin 4.6 g/dL (3.5-5.0); Albumin Globulin Ratio 1.4 (1.0-2.8); Alkaline Phosphatase 58 U/L (38-126); Aspartate Aminotransferase 39 IU/L (14-36); BUN Creatinine Ratio 33.3 (6-22); Bilirubin Total 0.8 mg/dL (0.2-1.3); Blood Urea Nitrogen 22 mg/dL (7-17); Carbon Dioxide 26 mmol/L (22-32); Chloride 106 mmol/L (98-107); Creatine Kinase 51 U/L (30-135); Estimated Glomerular Filt Rate > 60 mL/min (>60); Globulin 3.2 g/dL (1.7-4.1); Glucose 110 mg/dL (80-110); Lipase 82 U/L (23-300); Potassium 4.1 mmol/L (3.4-5.1); Sodium 140 mmol/L (137-145); Total Protein 7.8 g/dL (6.3-8.2)
[2024-05-08 03:38] LABS: HEMOLYSIS 65 (0-50)
[2024-05-08 03:47] LABS: Troponin I < 0.012 ng/mL (0.01-0.034)
[2024-05-08 04:17] LABS: D Dimer 464 ng/ml (<500); NT-proBNP (BNP-Adult 18+) 49 pg/mL (<450)
[2024-05-08 04:18] LABS: PTT Partial Thromboplastin Tim 37 SECONDS (25.1-36.5)
[2024-05-08] MEDS: MORPHINE 2 MG/ML INJ IV (04:52)
--- NOTE | 2024-05-08 05:03 | EKG_ITS ---
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
[2024-05-08] MEDS: ONDANSETRON 4 MG/2 ML INJ IV (05:25)
[2024-05-08] MEDS: SODIUM CHLORIDE 0.9% 1,000 ML 1000 ML IV (05:36)
--- NOTE | 2024-05-08 05:37 | PC.NURSE ---
This nurse administered 2mg morphine as per APR. Pt became nauseated at 5:15. Dr. casey verbal ordered 4mg IV zofran. administered per APR. at 05:30 pt's BP went to 84/62. This nurse immediately came to pt's bedside to find her diaphoretic and dizzy. pt put in trendelenburg position, Dr. Casey notified. Adam at bedside, verbal order for 1L ns bolus IV . Pt BP recheck improved to 109/57.
--- NOTE | 2024-05-08 05:38 | EKG_ITS ---
[address] [address] Test Date: 2024-05-08 Pat Name: Nathan Cervantes Department: Room: Gender: Female Clinical Data Associate: JODIE : 1945 Requested By: Order Number: [id number] Reading MD: Porfirio Alexandra Measurements Intervals [place] Rate: 72 P: 58 SC: 176 QRS: 85 QRSD: 150 T: 48 QT: 442 QTc: 483 Interpretive Statements Normal sinus rhythm Right bundle branch block Electronically Signed On 05-11-2024 18:25:31 PDT by Porfirio Alexandra
[2024-05-08 05:43] LABS: Troponin I < 0.012 ng/mL (0.01-0.034)
--- NOTE | 2024-05-08 05:44 | DI.CT.S_ITS ---
PROCEDURE: CT ANGIO CHEST PE PROTOCOL INDICATIONS: chest pain TECHNIQUE: After the administration of intravenous contrast, 2 mm thick sections acquired from the pulmonary apices to the posterior costophrenic angles. 3-dimensional maximum intensity projection (MIP) coronal and sagittal reformats were then acquired through the thorax. For radiation dose reduction, the following was used: automated exposure control, adjustment of mA and/or kV according to patient size. COMPARISON: None. FINDINGS: Image quality: Diagnostic. Pulmonary arteries: Pulmonary arteries are normal in size, and demonstrate no intraluminal filling defects to suggest central pulmonary embolism. Lower Neck: No enlarged lymph nodes. Thyroid: Stable 2.3 centimeter left thyroid nodule, previously worked up. Axillae: No enlarged lymph nodes. Chest Wall: Unremarkable. Bones: Unremarkable. Lungs and Pleura: No pneumothorax or pleural effusions. Right upper lobectomy .moderate atelectasis of the right middle lobe. Juxtapleural nodule in the lateral right lower lobe. Stable pulmonary nodules, including the 6 millimeter nodule in the left lower lobe (series 5, image 191). Heart: Heart size is normal. No pericardial effusion. Thoracic Vessels: No aortic aneurysm. Mediastinum and Irish: No enlarged lymph nodes. Esophagus: No wall thickening. No hiatal hernia. Upper Abdomen: Visualized upper abdomen solid organs and bowel loops appear normal. IMPRESSION: No pulmonary embolus. Right upper lobectomy. Agree with preliminary report. Dictated by: Alejandro Yan M.D. on 05/08/2024 at 8:47 Approved by: Alejandro Yan M.D. on 05/08/2024 at 9:13
--- NOTE | 2024-05-08 07:55 | PC.NURSE ---
0700 Assumed care of pt at 0700. Pt appears to be resting comfortably. Denies cp at this time.
[2024-05-08] MEDS: KETOROLAC 30 MG/ML VIAL 15 MG IV (08:32)
== END 2024-05-08 08:44 | disposition home or self-care (01) ==
PROVIDERS: Emergency Provider Emergency Medicine; Family Provider Family Medicine; PCP Family Medicine
DX: R07.81 Pleurodynia (principal); I45.10 Unspecified right bundle-branch block; R07.9 Chest pain, unspecified; Z95.0 Presence of cardiac pacemaker
CPT/HCPCS: 36415; 71045; 71275; 80053; 82550; 83690; 83880; 84484; 85025; 85379; 85730; 93005; 96361; 96374; 96375; 99284; J1885; J2270; J2405; Q9967

== ENCOUNTER → 2024-06-24 08:08 | Outpatient (CLI) | payer OTHER, SELFPAY ==
[2022-09-20 14:52] VITALS: BMI 27.4
--- NOTE | 2024-06-24 08:09 | DI.ECHO.S_ITS ---
[facility]---------+ [facility] : : [address] : : [place] : : [id number] : : Phone: [phone] Echocardiogram Report + + :Name: LUDWIN OCHOA Study Date: 06/24/2024 Height: 66.5 in: [facility] ReadingLocation: Weight: 173 lb : : Gender: Female BSA: 1.9 m2 : :: 1945 Age: 78 yrs BP: 127/78 mmHg: :Reason For Study: PULMONARY HYPERTENSION : :Ordering Physician: CHUCK NAIK Performed By: Fiorella Ibrahim : :Referring: CHUCK NAIK : + + Interpretation Summary 1. The left ventricular contractility is normal. Estimate ejection fraction is greater than 55% with mild septal bounce consistent with paced rhythm. No LVH. Grade 1 diastolic dysfunction. 2. The right ventricular contractility is normal. 3. All cardiac chambers are of normal size. 4. No significant valvular abnormalities noted. 5. No obvious intracardiac shunts. 6. Hyperechogenic linear density noted in right atrium and right ventricle consistent with pacemaker wire. 7. No hemodynamically significant pericardial effusion. 8. Low right-sided filling pressures. Conclusion: Normal biventricular systolic function with no significant valvular abnormalities nor evidence of pulmonary hypertension. Procedure: A two-dimensional transthoracic echocardiogram with color flow and Doppler was performed. The study quality was technically adequate. Comparison is made with the echocardiogram of 09/20/2022. The heart rate ranged between 77-83 bpm during the study. Left Ventricle: The left ventricle is normal in size and wall thickness. The ejection fraction is estimated to be 55-60%. There is a slight dyssynchronous contraction pattern due to the paced rhythm. Right Ventricle: There is a pacemaker lead in the right ventricle. The right ventricle is normal in size and function. Atria: The left atrial size is normal. Right atrial size is normal. There is a catheter/pacemaker lead seen in the right atrium. There is no Doppler evidence for an interatrial shunt. Mitral Valve: The mitral valve leaflets appear to open well. There is no mitral regurgitation noted. Aortic Valve: The aortic valve is trileaflet. The aortic valve opens well. There is no aortic valve stenosis. No aortic regurgitation is present. Tricuspid Valve: The tricuspid valve is normal. There is trace tricuspid regurgitation. Pulmonary artery pressures cannot be estimated because of the lack of a measurable TR jet velocity. Pulmonic Valve: The pulmonic valve leaflets are thin and pliable; valve motion is normal. There is no pulmonic valvular regurgitation. Great Vessels: The aortic root is normal size. The dimensions of the ascending aorta are normal. The IVC is of normal diameter and collapses greater than 50% with a sniff. This suggests a low right atrial pressure of 3 mm Hg. Pericardium/ Pleura There is no pericardial effusion. There is no pleural effusion. MMode/2D Measurements & Calculations LVIDd: 3.7 cm LVOT diam: 2.0 cm LVIDs: 2.5 cm Ao root diam: 3.5 cm FS: 33.4 % asc Aorta Diam: 3.2 cm IVSd: 0.79 cm LVPWd: 0.88 cm LV mendez. diameter/BSA (cm/m^2): 2.0 LV sys. diameter/BSA (cm/m^2): 1.3 LA A2 area: 13.4 cm2 RA long axis: 4.4 cm LA A4 area: 11.6 cm2 RA area: 12.9 cm2 LA length (vol): 4.4 cm RA vol: 32.6 ml LA vol: 30.3 ml RA : 17.2 ml/m2 LA vol index: 16.0 ml/m2 IVC diam: 1.5 cm RVD1 (basal): 3.8 cm RVD2 (mid): 3.1 cm TAPSE: 2.3 cm Doppler Measurements & Calculations Ao V2 max: 114.8 cm/sec LVOT Max Ezekiel: 102.7 cm/sec Ao V2 mean: 83.5 cm/sec LV V1 max P.2 mmHg Ao max P.3 mmHg LV V1 VTI: 19.6 cm Ao mean P.0 mmHg ARMOND(I,D): 2.9 cm2 Ao V2 VTI: 21.1 cm ARMOND(V,D): 2.8 cm2 sev ratio: 0.93 ARMOND indexed to BSA (cm^2/m^2): 1.6 MV E max ezekiel: 56.6 cm/sec TR max ezekiel: 242.2 cm/sec MV A max ezekiel: 99.0 cm/sec TR max P.5 mmHg MV E/A: 0.57 PA V2 max: 82.2 cm/sec Med Peak E' Ezekiel: 5.5 cm/sec PA V2 mean: 60.8 cm/sec E/E' med: 10.4 PA mean P.6 mmHg Lat Peak E' Ezekiel: 9.8 cm/sec PA pr(Accel): 37.9 mmHg E/E' lat: 5.8 E/e' average: 8.1 MV dec time: 0.18 sec SVLVOT): 62.3 ml Reading Physician:SONIDO
== END ==
PROVIDERS: Family Provider Family Medicine; PCP Family Medicine; Referring Provider Internal Medicine; Visit Provider Internal Medicine
DX: I27.20 Pulmonary hypertension, unspecified (principal)
CPT/HCPCS: 93306

== ENCOUNTER → 2025-01-06 10:25 | Outpatient (CLI) | payer OTHER, SELFPAY ==
[2022-09-20 14:52] VITALS: BMI 27.4
--- NOTE | 2025-01-06 10:28 | DI.CT.S_ITS ---
PROCEDURE: CT CHEST WO CON
== END ==
LOC: CT 10:26
PROVIDERS: Family Provider Family Medicine; PCP Family Medicine; Referring Provider Family Medicine; Visit Provider Internal Medicine Hematology & Oncology
DX: D3A.8 Other benign neuroendocrine tumors (principal); K22.89 Other specified disease of esophagus; E04.1 Nontoxic single thyroid nodule; R91.8 Other nonspecific abnormal finding of lung field; I27.20 Pulmonary hypertension, unspecified; K44.9 Diaphragmatic hernia without obstruction or gangrene; Z90.49 Acquired absence of other specified parts of digestive tract
CPT/HCPCS: 71250